=== PATIENT | male | born 1945 | race Caucasian/White ===

== ENCOUNTER → 2018-03-27 10:51 | Outpatient (CLI) | payer OTHER, SELFPAY ==
--- NOTE | 2018-03-27 10:52 | DI.US.S_ITS ---
PROCEDURE: US CAROTID DOPPLER BI INDICATIONS: screening TECHNIQUE: Color and pulse Doppler interrogation was performed of both carotid systems, with image documentation and velocity measurements. COMPARISON: [facility], CAROTID ARTERY DOPPLER BILAT, 04/18/2016, 12:29. [facility], , CAROTID ARTERY DOPPLER BILAT, 06/02/2015, 9:02. [facility], , CAROTID ARTERY DOPPLER BILAT, 06/03/2014, 11:42. [facility], , CAROTID ARTERY DOPPLER BILAT, 05/25/2013, 9:22. [facility], [place], CAROTID ARTERY DOPPLER BILAT, 05/22/2012, 10:37. [facility], , CAROTID ARTERY DOPPLER BILAT, 04/16/2017, 8:48. FINDINGS: Stenosis calculations are based on SRU (Society of Radiologists in Ultrasound) criteria. Right side: Brachial blood pressure: 132/87 mm Hg. Common carotid artery peak systolic velocity: 44 cm/sec (prior 59 cm/s). Internal carotid artery peak systolic velocity: Occluded. Internal carotid artery end diastolic velocity: Occluded. External carotid artery peak systolic velocity: 41 cm/sec (prior 67 cm/s). ICA/CCA peak systolic ratio: Occluded. Rojo scale imaging description: There is an occluded right internal carotid artery. Percent internal carotid artery stenosis: N./A. Vertebral artery: Flow direction is antegrade. Left side: Brachial blood pressure: Not recorded Common carotid artery peak systolic velocity: 69 cm/sec (prior 77 cm/s). Internal carotid artery peak systolic velocity: 100 cm/sec (prior 97 cm/s). Internal carotid artery end diastolic velocity: 32 cm/sec (prior 29 cm/s). External carotid artery peak systolic velocity: 64 cm/sec (prior 84 cm/s). ICA/CCA peak systolic ratio: 1.45 (prior 1.26). Rojo scale imaging description: Mild to moderate atherosclerotic changes are seen. Percent internal carotid artery stenosis: Less than 50% by velocity criteria Vertebral artery: Flow direction is antegrade. 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 Less than 50% stenosis of the left proximal internal carotid artery by velocity criteria. Dictated by: Joao Paz M.D. on 03/27/2018 at 12:15 Approved by: Joao Paz M.D. on 03/27/2018 at 12:17
== END ==
PROVIDERS: Family Provider Family Medicine; PCP Family Medicine; Referring Provider Internal Medicine; Visit Provider Internal Medicine
DX: I65.23 Occlusion and stenosis of bilateral carotid arteries (principal)
CPT/HCPCS: 93880

== ENCOUNTER → 2019-04-06 11:35 | Outpatient (CLI) | payer OTHER, SELFPAY ==
[2019-04-06 13:49] LABS: Alanine Aminotransferase 21 IU/L (21-72); Albumin 4.4 g/dL (3.5-5.0); Albumin Globulin Ratio 1.6 (1.0-2.8); Alkaline Phosphatase 78 U/L (38-126); Aspartate Aminotransferase 36 IU/L (17-59); Bilirubin Total 0.5 mg/dL (0.2-1.3); Blood Urea Nitrogen 11 mg/dL (9-20); Calcium 9.5 mg/dL (8.4-10.2); Carbon Dioxide 28 mmol/L (22-32); Chloride 103 mmol/L (98-107); Cholesterol 135 mg/dL (140-199); Estimated Glomerular Filt Rate > 60.0 mL/min (>60); Globulin 2.7 g/dL (1.7-4.1); Glucose 99 mg/dL (80-110); HDL Cholesterol 54 mg/dL (40-60); HEMOLYSIS < 15 (0-50); LDL Cholesterol Calculated 63 mg/dL (<100); Potassium 3.8 mmol/L (3.4-5.1); Sodium 141 mmol/L (137-145); Total Protein 7.1 g/dL (6.3-8.2); Triglycerides 89 mg/dL (35-150)
[2019-04-06 14:57] LABS: Creatinine Urine Random 188.5 mg/dL
[2019-04-06 15:04] LABS: Microalbumi Creatinin Ratio Ur 16.4 ug/mg CR (<30); Microalbumin Urine Random 3.1 mg/dL (0-1.6)
== END ==
PROVIDERS: PCP Family Medicine; Visit Provider Family Medicine
DX: I10 Essential (primary) hypertension (principal)
CPT/HCPCS: 36415; 80053; 80061; 82043; 82570

== ENCOUNTER → 2019-04-29 08:40 | Outpatient (CLI) | payer OTHER, SELFPAY ==
--- NOTE | 2019-04-29 | DI.US.S_ITS ---
PROCEDURE: US CAROTID DOPPLER BI INDICATIONS: RIGHT OCCLUSION TECHNIQUE: Color and pulse Doppler interrogation was performed of both carotid systems, with image documentation and velocity measurements. COMPARISON: [facility], CAROTID ARTERY DOPPLER BILAT, 06/03/2014, 11:42. [facility], CAROTID ARTERY DOPPLER BILAT, 05/25/2013, 9:22. [facility], , CAROTID ARTERY DOPPLER BILAT, 05/22/2012, 10:37. [facility], , CAROTID ARTERY DOPPLER BILAT, 06/02/2015, 9:02. [facility], , CAROTID ARTERY DOPPLER BILAT, 04/18/2016, 12:29. [facility], , CAROTID ARTERY DOPPLER BILAT, 04/16/2017, 8:48. [facility], [place] CAROTID DOPPLER BI, 03/27/2018, 11:29. FINDINGS: Stenosis calculations are based on SRU (Society of Radiologists in Ultrasound) criteria. Right side: Brachial blood pressure: 126/75 mm Hg. Common carotid artery peak systolic velocity: 56 cm/sec (prior 44 cm/s). Internal carotid artery: Occluded, as before. External carotid artery peak systolic velocity: 50 cm/sec (prior 41 cm/s). ICA/CCA peak systolic ratio: N./A. Rojo scale imaging description: The right internal carotid artery is occluded. Percent internal carotid artery stenosis: 100%. Vertebral artery: Flow direction is antegrade. Left side: Brachial blood pressure: Attempted, too painful Common carotid artery peak systolic velocity: 85 cm/sec (prior 69 cm/s). Internal carotid artery peak systolic velocity: 82 cm/sec (prior 100 cm/s). Internal carotid artery end diastolic velocity: 37 cm/sec (prior 32 cm/s). External carotid artery peak systolic velocity: 64 cm/sec (prior 64 cm/s). ICA/CCA peak systolic ratio: 1 (prior 1.5). Rojo scale imaging description: Mild atherosclerotic changes are seen. Percent internal carotid artery stenosis: Less than 50% by velocity criteria Vertebral artery: Flow direction is antegrade. 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 Less than 50% stenosis is seen involving the left proximal internal carotid artery. Dictated by: Joao Paz M.D. on 04/29/2019 at 9:36 Approved by: Joao Paz M.D. on 04/29/2019 at 9:38
== END ==
PROVIDERS: PCP Family Medicine; Visit Provider Family Medicine
DX: I65.23 Occlusion and stenosis of bilateral carotid arteries (principal)
CPT/HCPCS: 93880

== ENCOUNTER 2019-05-13 10:13 | Emergency (ER) | payer OTHER, SELFPAY ==
[2019-05-13 10:32] VITALS: BP 130/82; PULSE 66; RESP 14; O2SAT 98; BMI 23.6
--- NOTE | 2019-05-13 10:42 | ED.MALEGU ---
HPI - Male Genitourinary General Chief complaint: Urogenital-Male Stated complaint: Blood in urine Time Seen by Provider: 05/13/19 10:28 Source: patient Mode of arrival: Ambulatory Limitations: no limitations History of Present Illness HPI Narrative: 73-year-old male here for evaluation of blood in his urine. He states that it occurred this morning. Last evening he did not have any blood. No problems with urinating although he is urinating more frequently. He did state that he has had some darker colored stools recently but no overt blood. Is on aspirin. No other anticoagulation. Does have a history of prostate issues. Related Data Home Medications Medication Instructions Recorded Confirmed alfuzosin 10 mg PO QDAY #0 tab 04/12/16 04/06/19 atorvastatin 80 mg tablet 80 mg PO DAILY 03/25/18 04/06/19 finasteride 5 mg tablet 5 mg PO DAILY 03/25/18 04/06/19 gabapentin 300 mg capsule 300 mg PO DAILY 03/25/18 04/06/19 lisinopril 20 mg tablet 20 mg PO DAILY 03/25/18 04/06/19 esomeprazole magnesium 20 mg 20 mg PO DAILY 08/12/18 04/06/19 capsule,delayed release hydrochlorothiazide 12.5 mg tablet 12.5 mg PO DAILY 08/12/18 04/06/19 niacin 500 mg tablet 500 mg PO DAILY 08/12/18 04/06/19 oxybutynin chloride 5 mg tablet 5 mg PO .QDAY tab 08/12/18 04/06/19 Previous Rx's Medication Instructions Recorded ASPIRIN (#ASPIRIN EC) 325 mg PO QDAY #90 ect 03/20/13 Trazodone Hydrochloride (TRAZODONE) 50 mg PO HS #90 tab 03/20/13 triamcinolone acetonide 0.025 % 1 applictn TOP BID #15 gram 03/25/18 topical cream sertraline 100 mg tablet 100 mg PO DAILY #90 tab 03/13/19 Allergies Allergy/AdvReac Type Severity Reaction Status Date / Time No Known Drug Allergies Allergy Verified 05/13/19 10:32 Review of Systems Constitutional Constitutional: Denies fever(s) Cardiovascular Cardiovascular: Denies chest pain and Denies dyspnea Respiratory Respiratory: Denies dyspnea Gastrointestinal Gastrointestinal: Denies abdominal pain, Denies change in stool character, Denies nausea and Denies vomiting Genitourinary Genitourinary: Reports hematuria and Reports urinary frequency Musculoskeletal Musculoskeletal: Denies myalgias and Denies arthralgias Integumentary/Breasts Skin/Breast: Denies lesions and Denies rash Neurologic Neurologic: Denies burning sensations Hematologic/Lymphatic Hematologic/Lymphatic: Denies easy bleeding and Denies easy bruising Patient History Medical History CVA (cerebral vascular accident) (Resolved 1992) Depression (Chronic) GERD (gastroesophageal reflux disease) (Chronic) Hyperlipidemia (Chronic) Low back pain (Chronic) RCA occlusion (Resolved) Renal cyst, right (Chronic) Seizures (Resolved) Social History marital status: household members: none lives independently: Yes caregiver/support person: No Smoking Status: Former smoker second hand exposure: No alcohol intake: never substance use type: does not use Substance Use Type: does not use Exam Initial Vital Signs Initial Vital Signs: Vital Signs Pulse Rate 66 05/13/19 10:32 Respiratory Rate 14 05/13/19 10:32 Blood Pressure 130/82 05/13/19 10:32 Pulse Oximetry 98 05/13/19 10:32 Const General: cooperative and comfortable Orientation: alert and awake HENMT Head: normal to inspection and normocephalic Resp Effort & Inspection: normal respiratory effort Auscultation: clear to auscultation bilaterally Cardio Rate: regular rate Rhythm: regular rhythm GI Inspection: non-distended Palpation: soft, No firm and No tender Back/Spine/Pelvis Back: No CVA tenderness Skin Lesions: no lesions Rashes: no rashes Neuro General: alert and awake Cognition: normal cognition Speech: speech normal Extrem General: normal to inspection and capillary refill normal Psych Appearance: grossly normal and well kempt Course Orders Ordered: ED Orders 05/13/19 10:28 Urine Culture Stat Urine Microscopic Stat Vital Signs Vital signs: Vital Signs - 8 hr 05/13/19 10:32 Pulse Rate 66 Respiratory Rate 14 Blood Pressure 130/82 Pulse Oximetry 98 MDM - Male Genitourinary Lab Data Attestation: I reviewed the patient's lab results. Labs: Lab Results 05/13/19 Range/Units 10:28 Urine RBC >100/hpf (0-5/HPF) Urine WBC 5-10/hpf H (0-5/HPF) Urine Bacteria Many (>30) H (None) Ur Culture Indicated? Specimen cultured Urine Dip Bedside Urine Glucose Negative Bedside Urine Bilirubin - Negative Bedside Urine Ketone - Negative Urine Specific [facility] 1.010 Bedside Urine Occult Blood +++ Bedside Urine pH 8.5 Bedside Urine Protein ++ 100 Bedside Urine Urobilinogen +/- 1mg Bedside Urine Nitrite - Negative Bedside Urine Leukocytes ++ 125 Esterase MDM Narrative Medical decision making narrative: Patient is nontoxic appearing. Has no dysuria. Low suspicion for UTI. Urine culture was pending. No prior history of urinary issues. He was able to ambulate to the bathroom without any problems. He does feel like his symptoms have improved since earlier this morning. Will have him contact his primary provider to discuss a referral to see Urology. Will hold on antibiotics. He was informed that a culture was pending and we would call him if needed. He expressed understanding and agreement with plan. Discharge Plan Departure Patient Disposition: Home Clinical Impression: Hematuria Qualifiers: Hematuria type: unspecified type Qualified Code(s): R31.9 - Hematuria, unspecified Instructions: DI for Hematuria Activity Restrictions/Additional Instructions: Recommend that you increase your fluid intake. Return to the emergency department for any fevers or inability to urinate. I do recommend you contact your primary provider to discuss referral to see Urology. Prescriptions: No Action ASPIRIN (#ASPIRIN EC) 325 mg PO QDAY Qty: 90 RF: 3 Trazodone Hydrochloride (TRAZODONE) 50 mg PO HS Qty: 90 RF: 3 alfuzosin 10 MG tablet extended release 24 hr 10 mg PO QDAY Qty: 0 RF: 0 sertraline 100 mg tablet 100 mg PO DAILY Qty: 90 RF: 1 lisinopril 20 mg tablet 20 mg PO DAILY RF: 0 atorvastatin 80 mg tablet 80 mg PO DAILY RF: 0 gabapentin 300 mg capsule 300 mg PO DAILY RF: 0 finasteride 5 mg tablet 5 mg PO DAILY RF: 0 triamcinolone acetonide 0.025 % cream 1 applictn TOP BID Qty: 15 RF: 1 oxybutynin chloride 5 mg tablet 5 mg PO .QDAY RF: 0 esomeprazole magnesium [Nexium] 20 mg capsule,delayed release(DR/EC) 20 mg PO DAILY RF: 0 niacin 500 mg tablet 500 mg PO DAILY RF: 0 hydrochlorothiazide 12.5 mg tablet 12.5 mg PO DAILY RF: 0 Referrals: Maureen Kenyon MD [Primary Care Provider] -
[2019-05-13 11:04] LABS: Bacteria Urine Many (>30); Culture Indicated Urine Specimen Cultured; RBC Urine >100/HPF (0-5/HPF); WBC Urine 5-10/HPF (0-5/HPF)
[2019-05-13 11:51] VITALS: BP 123/85; PULSE 60; RESP 16; O2SAT 99
== END 2019-05-13 11:52 | disposition home or self-care (01) ==
PROVIDERS: Emergency Provider Emergency Medicine; PCP Family Medicine
DX: R31.9 Hematuria, unspecified (principal)
CPT/HCPCS: 81003; 81015; 87086; 99282; 99283

== ENCOUNTER → 2020-01-19 10:24 | Outpatient (CLI) | payer OTHER, SELFPAY ==
--- NOTE | 2020-01-19 | DI.CT.S_ITS ---
PROCEDURE: CT ABDOMEN PELVIS WO/W CON INDICATIONS: Gross hematuria TECHNIQUE: Optional 5 mm thick noncontrast images acquired from the diaphragm to the symphysis pubis. After the administration of intravenous contrast, 5 mm thick images acquired from the diaphragm to the symphysis pubis after a 10-minute delay. 2 mm thick coronal and sagittal reformats were then performed of the kidneys and ureters. For radiation dose reduction, the following was used: automated exposure control, adjustment of mA and/or kV according to patient size. COMPARISON: None. FINDINGS: Image quality: Excellent. Lung bases: There is mild dependent atelectasis bilaterally. Heart size is normal. There is a small hiatal hernia. Urinary system: There are 2 punctate nonobstructing stones within the left kidney. No hydronephrosis. Mild nonspecific perinephric stranding is demonstrated bilaterally. The opacified renal collecting systems demonstrate no suspicious filling defects. The kidneys demonstrate symmetric enhancement with multiple bilateral renal cysts as well as additional small low-density foci which are too small to characterize but likely represent cysts. Opacified portions of both ureters demonstrate normal caliber without ureteral stones. There is mild concentric bladder wall thickening with mild fat stranding. A small focus of gas is demonstrated within the bladder lumen. No calcified bladder stones. Other solid organs: Evaluation of the liver demonstrates no focal hepatic lesions. The gallbladder demonstrates a Phrygian cap with associated mild regional wall thickening. No calcified gallstones. Biliary system is non-dilated. Pancreas enhances normally. No peripancreatic fat stranding or fluid collections. No pancreatic duct dilatation. The spleen is normal in size. No adrenal nodules. Peritoneum and bowel: Small bowel loops demonstrate normal wall thickness and caliber. Colonic diverticulosis is demonstrated without peridiverticular inflammatory change to suggest acute diverticulitis. Mild segmental wall thickening is demonstrated within the descending and sigmoid colon suggestive of a mild colitis. No free fluid or air. Nodes and vessels: No retroperitoneal or mesenteric adenopathy by size criteria. Aorta and inferior vena cava are normal in size. Abdominal wall: No ventral hernias. Pelvis: There is heterogeneous enlargement of the prostate. No pathologic free pelvic fluid. No inguinal hernias or adenopathy. Bones: No suspicious bony lesions. No vertebral body compression fractures. IMPRESSION: 1. Left nephrolithiasis without evidence of hydronephrosis or suspicious filling defects in the renal collecting systems. 2. Mild bladder wall thickening with fat stranding suggestive of a nonspecific cystitis. Small focus of intraluminal gas within the bladder may be reflect sequelae of catheterization or infection from a gas-forming organism. Recommend correlation with clinical history and urinalysis. 3. Mild segmental wall thickening in the descending and sigmoid colon suggestive of a mild colitis, likely infectious or inflammatory. 4. Colonic diverticulosis without definite acute diverticulitis. Dictated by: Romario Galaviz M.D. on 01/19/2020 at 15:26 Approved by: Romario Galaviz M.D. on 01/19/2020 at 16:20
== END ==
PROVIDERS: PCP Family Medicine; Referring Provider Family Medicine; Visit Provider Urology
DX: R31.0 Gross hematuria (principal); N20.0 Calculus of kidney; K57.90 Diverticulosis of intestine, part unspecified, without perforation or abscess without bleeding; K44.9 Diaphragmatic hernia without obstruction or gangrene
CPT/HCPCS: 74178; Q9967

== ENCOUNTER → 2020-03-29 09:14 | Outpatient (CLI) | payer OTHER, SELFPAY ==
--- NOTE | 2020-03-29 | DI.US.S_ITS ---
PROCEDURE: US CAROTID DOPPLER BI INDICATIONS: Occlusion and stenosis of unspecified posterior cerebral art TECHNIQUE: Color and pulse Doppler interrogation was performed of both carotid systems, with image documentation and velocity measurements. COMPARISON: [facility], CAROTID DOPPLER BI, 03/27/2018, 11:29. [facility], [place] CAROTID DOPPLER BI, 04/29/2019, 10:10. FINDINGS: Stenosis calculations are based on SRU (Society of Radiologists in Ultrasound) criteria. Right side: Brachial blood pressure: 120/82 mm Hg. Common carotid artery peak systolic velocity: 66 cm/sec. Internal carotid artery peak systolic velocity: 0 cm/sec. (Chronic occlusion) Internal carotid artery end diastolic velocity: 0 cm/sec. (Chronic occlusion) External carotid artery peak systolic velocity: 80 cm/sec. ICA/CCA peak systolic ratio: Not measured . Rojo scale imaging description: Redemonstration of chronic occlusion of the right internal carotid artery. A patent collateral vessel is incidentally noted. Normal flow direction of the right vertebral, and right subclavian arteries. Percent internal carotid artery stenosis: Less than 50% . Vertebral artery: Flow direction is antegrade. Left side: Brachial blood pressure: Blood pressure of the left upper extremity not obtained secondary to patient pain. Common carotid artery peak systolic velocity: 85 cm/sec. Internal carotid artery peak systolic velocity: 78 cm/sec. Internal carotid artery end diastolic velocity: 38 cm/sec. External carotid artery peak systolic velocity: 50 cm/sec. ICA/CCA peak systolic ratio: 0.9 . Rojo scale imaging description: Redemonstration of mild atherosclerotic vascular disease at the carotid bifurcation. Percent internal carotid artery stenosis: Less than 50% stenosis . Vertebral artery: Flow direction is antegrade. IMPRESSION: 1. Chronic occlusion of the right internal carotid artery with visualized collateral vessel. Normal flow direction of the right vertebral and subclavian arteries. 2. Atherosclerosis of the left extracranial carotid vasculature with less than 50% stenosis of the left internal carotid artery. Dictated by: Rodney Carrera M.D. on 03/29/2020 at 12:07 Approved by: Rodney Carrera M.D. on 03/29/2020 at 12:15
[2020-03-29 12:27] LABS: Add Manual Diff / Slide Review NO; Basophils Absolute Auto 0 /uL (0-100); Basophils Percent Auto 0.9 % (0-2); Eosinophils Absolute Auto 100 /uL (0-450); Eosinophils Percent Auto 2.8 % (2-4); Hematocrit 40.3 % (41-53); Hemoglobin 13.1 g/dL (13.5-17.5); Lymphocytes Absolute Auto 1200 /uL (1100-4500); Lymphocytes Percent Auto 23.5 % (25-40); Mean Corpuscular HGB Conc 32.5 % (30-36); Mean Corpuscular Hemoglobin 27.6 PG (26-34); Monocytes Absolute Auto 400 /uL (0-900); Monocytes Percent Auto 8.4 % (3-14); Neutrophils Absolute Auto 3300 /uL (1500-7000); Neutrophils Percent Auto 64.4 % (50-75); Platelet Count 180 X10^3/uL (150-400); Red Blood Cell Count 4.74 X10^6/uL (4.5-5.9); Red Cell Distribution Width 16.5 % (11.6-14.8); White Blood Cell Count 5.1 X10^3/uL (4.5-11.0)
[2020-03-29 12:54] LABS: Alanine Aminotransferase 26 IU/L (<50); Albumin 3.9 g/dL (3.5-5.0); Albumin Globulin Ratio 1.6 (1.0-2.8); Alkaline Phosphatase 76 U/L (38-126); Aspartate Aminotransferase 37 IU/L (17-59); BUN Creatinine Ratio 15.3 (6-22); Bilirubin Total 0.4 mg/dL (0.2-1.3); Blood Urea Nitrogen 15 mg/dL (9-20); Calcium 9.5 mg/dL (8.4-10.2); Carbon Dioxide 32 mmol/L (22-32); Chloride 103 mmol/L (98-107); Cholesterol 125 mg/dL (140-199); Estimated Glomerular Filt Rate > 60.0 mL/min (>60); Globulin 2.5 g/dL (1.7-4.1); Glucose 92 mg/dL (80-110); HDL Cholesterol 55 mg/dL (40-60); HEMOLYSIS < 15 (0-50); LDL Cholesterol Calculated 57 mg/dL (<100); Potassium 4.1 mmol/L (3.4-5.1); Sodium 140 mmol/L (137-145); Total Protein 6.4 g/dL (6.3-8.2); Triglycerides 64 mg/dL (35-150)
[2020-03-29 12:59] LABS: Appearance Urine UA CLEAR; Bilirubin Urine UA NEGATIVE (NEGATIVE); Color Urine UA YELLOW; Glucose Urine UA NEGATIVE (Negative); Ketones Urine UA NEGATIVE (NEGATIVE); Leukocyte Esterase Urine UA NEGATIVE (NEGATIVE); Nitrite Urine UA NEGATIVE (Negative); Occult Blood Urine UA 3+ (Negative); Protein Urine UA NEGATIVE (Negative); Specific Gravity Urine UA 1.025 (1.000-1.035); Urobilinogen Urine UA 0.2 E.U./dL (0.2); pH Urine UA 5.5 (4.5-8.0)
[2020-03-29 13:20] LABS: RBC Urine 5-10/HPF (0-5/HPF)
[2020-03-29 13:21] LABS: Amorphous Sediment Urine 1+; Bacteria Urine Occasional (0-1); Culture Indicated Urine Cult Not Indicated; Mucus Urine 2+ (Negative); Squamous Epithelial Cell Urine 0-1 /HPF (0-5/HPF); WBC Urine 1-5/HPF (0-5/HPF)
[2020-03-29 13:23] LABS: Prostate Specific Antigen 0.581 ng/mL (0.10-4.00)
[2020-03-29 13:27] LABS: TSH w/ Reflex to FT4 1.16 uIU/mL (0.47-4.68)
== END ==
PROVIDERS: PCP Internal Medicine; Referring Provider Internal Medicine; Visit Provider Internal Medicine
DX: I65.23 Occlusion and stenosis of bilateral carotid arteries (principal); I10 Essential (primary) hypertension; Z87.448 Personal history of other diseases of urinary system; Z86.73 Personal history of transient ischemic attack (TIA), and cerebral infarction without residual deficits
CPT/HCPCS: 36415; 80053; 80061; 81001; 84153; 84443; 85025; 93880

== ENCOUNTER → 2020-04-22 19:00 | Outpatient (ROUT) | payer OTHER, SELFPAY | PROVIDERS: PCP Internal Medicine; Visit Provider Internal Medicine | DX: L03.811 Cellulitis of head [any part, except face] (principal) | CPT/HCPCS: 87070; 87075; 87077; 87147; 87205 ==

== ENCOUNTER 2020-06-08 10:04 | Observation (INO) | payer OTHER, SELFPAY ==
[2020-06-08] VITALS (25 sets, daily range): BP systolic 115–151; BP diastolic 67–103; PULSE 74–93; RESP 16–30; TEMP 36.3–37.3; O2SAT 95–98; BMI 23.6; BMI 23.4
--- NOTE | 2020-06-08 10:29 | DI.RAD.S_ITS ---
PROCEDURE: XR CHEST 1V INDICATIONS: weakness TECHNIQUE: One view of the chest was acquired. COMPARISON: None. FINDINGS: Surgical changes and devices: None. Lungs and pleura: Lungs are clear considering reduced inspiratory volume. No pleural effusions or pneumothorax. Mediastinum: Mediastinal contours appear normal. Heart size is normal. Bones and chest wall: No suspicious bony lesions. Overlying soft tissues appear unremarkable. IMPRESSION: Reduced inspiratory volume, source of weakness is not found. Dictated by: Anthony Lux M.D. on 06/08/2020 at 10:40 Approved by: Anthony Lux M.D. on 06/08/2020 at 10:41
[2020-06-08] MEDS: SODIUM CHLORIDE 0.9% 1,000 ML 150 ML IV ×2 (11:05→18:58)
[2020-06-08 11:08] LABS: INR 1.2 (0.9-1.3); Prothrombin Time 14.2 SECONDS (10.1-12.7)
[2020-06-08 11:11] LABS: PTT Partial Thromboplastin Tim 30 SECONDS (26.4-36.2)
--- NOTE | 2020-06-08 11:11 | ED_ITS ---
HPI - Weakness General Chief complaint: Weakness Stated complaint: decreased mobility, increased weakness Time Seen by Provider: 06/08/20 10:28 Source: patient and EMS Mode of arrival: EMS Limitations: no limitations History of Present Illness HPI Narrative: This is a 74-year-old male who comes to the emergency department with acute back pain. Patient states for the last several days he has had significant increase in pain in his thoracic and lumbar back. Patient states he has typically had lower back pain in the lumbar region is little atypical for the middle back. Patient states it also radiates down to his hips and groin a little bit. He states he has been trying ibuprofen with minimal improvement. Marin curran has had difficulty getting in and out of bed. He states he slipped to the floor after trying to get out of bed last night and was unable to get up back to his bed and had to call EMS, they returned this morning to help him sit up and then patient called him a 3rd time and they convinced him to come to the ER. He denies any fevers, no chills, no chest pain or shortness of breath. Denies any recent trauma or significant injuries. He thinks he may have pulled a muscle in his back. Denies any nausea, no vomiting, no cold cough or congestion, no urinary or bowel incontinence. He has chronic weakness and debility on his left side from a left CVA. States his left leg seems maybe a little bit weaker. Denies any new numbness, tingling. He takes antihypertensive, dyslipidemia an aspirin 325 mg daily. He denies any prior heart attacks, no diabetes. States his only prior surgeries appendectomy with no prior back surgeries. Primary care is [facility]. He denies any allergies to medications he has had Tylenol 3 in the past with no issues. Related Data Home Medications Medication Instructions Recorded Confirmed atorvastatin 80 mg tablet 80 mg PO DAILY 03/25/18 05/13/19 finasteride 5 mg tablet 5 mg PO DAILY 03/25/18 05/13/19 aspirin 325 mg PO DAILY 05/13/19 05/13/19 esomeprazole magnesium 40 mg PO DAILY 05/13/19 05/13/19 lisinopril 40 mg PO DAILY 05/13/19 05/13/19 niacin [Slo-Niacin] 500 mg PO BEDTIME 05/13/19 05/13/19 sertraline 50 mg PO DAILY 05/13/19 05/13/19 trazodone 50 mg PO BEDTIME 05/13/19 05/13/19 Previous Rx's Medication Instructions Recorded triamcinolone acetonide 0.025 % 1 applictn TOP BID #15 gram 03/25/18 topical cream Disabled Parking Permit #1 ea 05/26/19 Allergies Allergy/AdvReac Type Severity Reaction Status Date / Time No Known Drug Allergies Allergy Verified 06/08/20 10:11 Review of Systems Review of Systems ROS Unobtainable: All systems reviewed & are unremarkable except as noted in HPI and below Patient History Medical History (Updated 06/08/20 @ 12:01 by Traci Wells DO) CVA (cerebral vascular accident) (1992) Depression GERD (gastroesophageal reflux disease) Hyperlipidemia Low back pain RCA occlusion Renal cyst, right Seizures Surgical History History of vasectomy Status post appendectomy Social History marital status: household members: none lives independently: Yes caregiver/support person: No Smoking Status: Former smoker second hand exposure: No alcohol intake: never substance use type: does not use Smoking Status: Former smoker alcohol intake frequency: holidays/special occasions only Substance Use Type: does not use Exam Narrative Exam Narrative: GEN: well nourished, well appearing male, alert and oriented x 3, patient appears to be in mild distress. HEENT: Atraumatic, pupils are equal round reactive to light, extraocular movements are intact, nares are clear, TMs are clear with no fluid, there is no conjunctival pallor. Throat is clear without any exudates, erythema, tonsillar enlargement or uvular deviation, no dysarthria. HEART: Regular rate and rhythm without murmur, clicks, rubs. No carotid bruits, pulses are equal in upper and lower extremities LUNGS:Lungs clear to auscultation, no wheezes, rales, crackles, chest moves symmetrically ABD:bowel sounds normal, soft, non-tender, no guarding, rebound, rigidity, no masses noted, no hepatosplenomegaly BACK: No cervical, thoracic or lumbar vertebral point tenderness. Patient has tissue tightness and some discomfort in the bilateral lower lumbar and mid lumbar region with palpation. No ecchymosis or skin changes. Patient has decreased range of motion. Patient's gait is not tested. Rectal exam is [normal sphincter tone/decreased tone/no tone/deferred or refused]. Muscle strength is 5/5 on right lower extremity, 4/5 on left lower extremity, DTRs are 2/4 and lower extremities. Dorsalis pedis and tibialis pulses are 2+ and lower extremities. Sensation is intact in bialteral lower extremities. :No CVA tenderness MSCL: Non-tender. Patient has decreased use of his left upper extremity secondary to left-sided deficit. NEURO:CN 2-12 intact, sensation normal Initial Vital Signs Initial Vital Signs: Vital Signs Temperature 98.9 F 06/08/20 10:08 Pulse Rate 93 H 06/08/20 10:08 Respiratory Rate 28 H 06/08/20 10:08 Blood Pressure 130/91 H 06/08/20 10:08 Pulse Oximetry 97 06/08/20 10:08 Course Orders Ordered: ED Orders 06/08/20 10:17 EKG-12 Lead Stat 06/08/20 10:29 XR chest 1V Stat 06/08/20 10:45 COVID19 Stat Complete Blood Count AUTO DIFF Stat Comprehensive Metabolic Panel Stat Lactate (Lactic Acid) Stat Partial Thromboplastin Time Stat Procalcitonin Stat Prothrombin Time INR Stat Troponin & CK Cardiac Panel Stat 06/08/20 11:06 Blood Culture Stat 06/08/20 11:52 CT thoracic spine wo con Stat 06/08/20 12:00 Urine Microscopic Stat 06/08/20 12:01 CT lumbar spine wo con Stat 06/08/20 14:31 Consult to [employer] - [employer] Stat 06/08/20 15:37 Consult to Physical Therapy Evaluate & Treat Sodium Chloride (Normal Saline 0.9%) 1,000 mls @ 150 mls/hr IV CONT KATHRYN Last Infusion: 06/08/20 11:53 Dose: 0 mls/hr Documented by: Admin: 06/08/20 11:05 Dose: 150 mls/hr Documented by: DEE Discontinued Medications Diazepam (Diazepam 5 Mg Tablet) 10 mg PO NOW ONE Stop: 06/08/20 11:55 Last Admin: 06/08/20 13:23 Dose: 10 mg Documented by: VIOLET Morphine Sulfate (Morphine 4 Mg/Ml Inj) 4 mg IV NOW ONE Stop: 06/08/20 11:55 Last Admin: 06/08/20 11:59 Dose: 4 mg Documented by: VIOLET Morphine Sulfate (Morphine 4 Mg/Ml Inj) 4 mg IV NOW ONE Stop: 06/08/20 17:05 Last Admin: 06/08/20 17:33 Dose: 4 mg Documented by: Reevaluation(s) Reevaluation #1: Patient's pain has improved. Time: 13:43 Vital Signs Vital signs: Vital Signs - 8 hr 06/08/20 10:08 06/08/20 10:09 06/08/20 10:30 Temperature 98.9 F Pulse Rate 93 H 92 H 85 Respiratory Rate 28 H 28 H 26 H Blood Pressure 130/91 H 132/91 H 125/75 Pulse Oximetry 97 96 06/08/20 11:01 06/08/20 11:30 06/08/20 11:31 Temperature Pulse Rate 83 80 81 Respiratory Rate 29 H 29 H Blood Pressure 131/87 151/84 H Pulse Oximetry 97 98 98 06/08/20 12:12 06/08/20 12:14 06/08/20 12:30 Temperature Pulse Rate 85 81 79 Respiratory Rate Blood Pressure 129/81 124/67 Pulse Oximetry 96 98 97 06/08/20 13:00 06/08/20 13:30 06/08/20 14:00 Temperature Pulse Rate 78 79 77 Respiratory Rate 23 Blood Pressure 128/79 115/87 127/75 Pulse Oximetry 96 97 96 06/08/20 14:30 06/08/20 15:00 06/08/20 15:30 Temperature Pulse Rate 77 77 74 Respiratory Rate 18 21 16 Blood Pressure 129/75 139/74 137/79 Pulse Oximetry 96 95 96 06/08/20 16:00 06/08/20 16:01 06/08/20 16:30 Temperature Pulse Rate 78 82 74 Respiratory Rate 27 H 30 H 26 H Blood Pressure 145/103 H 131/79 Pulse Oximetry 97 98 06/08/20 17:00 Temperature Pulse Rate 76 Respiratory Rate 27 H Blood Pressure Pulse Oximetry 96 MDM - Weakness Lab Data Attestation: I reviewed the patient's lab results. Result diagrams: 06/08/20 10:45 06/08/20 10:45 Labs: Lab Results 06/08/20 06/08/20 06/08/20 Range/Units 10:45 10:45 10:45 WBC 12.1 H (4.5-11.0) X10^3/uL RBC 4.82 (4.5-5.9) X10^6/uL Hgb 13.0 L (13.5-17.5) g/dL Hct 40.3 L (41-53) % MCV 83.7 (80-100) fL MCH 27.1 (26-34) PG MCHC 32.3 (30-36) % RDW 15.6 H (11.6-14.8) % Plt Count 267 (150-400) X10^3/uL Neut % (Auto) 89.3 H (50-75) % Lymph % (Auto) 3.6 L (25-40) % [place] % (Auto) 6.9 (3-14) % Eos % (Auto) 0.0 L (2-4) % Baso % (Auto) 0.2 (0-2) % Neut # (Auto) 72333 H (2893-8356) /uL Lymph # (Auto) 400 L (1458-4218) /uL [place] # (Auto) 800 (0-900) /uL Eos # (Auto) 0 (0-450) /uL Baso # (Auto) 0 (0-100) /uL PT 14.2 H (10.1-12.7) SECONDS INR 1.2 (0.9-1.3) APTT 30 (26.4-36.2) SECONDS Sodium (137-145) mmol/L Potassium (3.4-5.1) mmol/L Chloride (98-107) mmol/L Carbon Dioxide (22-32) mmol/L BUN (9-20) mg/dL Creatinine (0.66-1.25) mg/dL Estimated GFR (>60) mL/min BUN/Creatinine Ratio (6-22) Glucose (80-110) mg/dL Lactate (0.7-2.1) mmol/L Calcium (8.4-10.2) mg/dL Total Bilirubin (0.2-1.3) mg/dL AST (17-59) IU/L ALT (<50) IU/L Alkaline Phosphatase (38-126) U/L Total Creatine Kinase (55-170) U/L CK-MB (CK-2) (<2.37) ng/mL CK-MB (CK-2) Rel Index (1.5-5.0) % Troponin I (0.01-0.034) ng/mL Total Protein (6.3-8.2) g/dL Albumin (3.5-5.0) g/dL Globulin (1.7-4.1) g/dL Albumin/Globulin Ratio (1.0-2.8) Procalcitonin < 0.05 (<0.5) ng/mL Urine RBC (0-5/HPF) Urine WBC (0-5/HPF) Urine Bacteria (None) Urine Mucus (Negative) Ur Culture Indicated? COVID-19 PCR (Negative) 06/08/20 06/08/20 06/08/20 Range/Units 10:45 10:45 10:45 WBC (4.5-11.0) X10^3/uL RBC (4.5-5.9) X10^6/uL Hgb (13.5-17.5) g/dL Hct (41-53) % MCV (80-100) fL MCH (26-34) PG MCHC (30-36) % RDW (11.6-14.8) % Plt Count (150-400) X10^3/uL Neut % (Auto) (50-75) % Lymph % (Auto) (25-40) % [place]kin % (Auto) (3-14) % Eos % (Auto) (2-4) % Baso % (Auto) (0-2) % Neut # (Auto) (6637-9536) /uL Lymph # (Auto) (6193-5462) /uL Pitkin # (Auto) (0-900) /uL Eos # (Auto) (0-450) /uL Baso # (Auto) (0-100) /uL PT (10.1-12.7) SECONDS INR (0.9-1.3) APTT (26.4-36.2) SECONDS Sodium 139 (137-145) mmol/L Potassium 3.7 (3.4-5.1) mmol/L Chloride 101 (98-107) mmol/L Carbon Dioxide 30 (22-32) mmol/L BUN 16 (9-20) mg/dL Creatinine 0.93 (0.66-1.25) mg/dL Estimated GFR > 60.0 (>60) mL/min BUN/Creatinine Ratio 17.2 (6-22) Glucose 133 H (80-110) mg/dL Lactate 0.9 (0.7-2.1) mmol/L Calcium 9.8 (8.4-10.2) mg/dL Total Bilirubin 0.7 (0.2-1.3) mg/dL AST 39 (17-59) IU/L ALT 25 (<50) IU/L Alkaline Phosphatase 95 (38-126) U/L Total Creatine Kinase 237 H (55-170) U/L CK-MB (CK-2) 1.33 (<2.37) ng/mL CK-MB (CK-2) Rel Index 0.6 L (1.5-5.0) % Troponin I < 0.012 (0.01-0.034) ng/mL Total Protein 7.8 (6.3-8.2) g/dL Albumin 4.4 (3.5-5.0) g/dL Globulin 3.4 (1.7-4.1) g/dL Albumin/Globulin Ratio 1.3 (1.0-2.8) Procalcitonin (<0.5) ng/mL Urine RBC (0-5/HPF) Urine WBC (0-5/HPF) Urine Bacteria (None) Urine Mucus (Negative) Ur Culture Indicated? COVID-19 PCR (Negative) 06/08/20 06/08/20 Range/Units 10:45 12:00 WBC (4.5-11.0) X10^3/uL RBC (4.5-5.9) X10^6/uL Hgb (13.5-17.5) g/dL Hct (41-53) % MCV (80-100) fL MCH (26-34) PG MCHC (30-36) % RDW (11.6-14.8) % Plt Count (150-400) X10^3/uL Neut % (Auto) (50-75) % Lymph % (Auto) (25-40) % [place]kin % (Auto) (3-14) % Eos % (Auto) (2-4) % Baso % (Auto) (0-2) % Neut # (Auto) (6333-6795) /uL Lymph # (Auto) (1179-6866) /uL [place]kin # (Auto) (0-900) /uL Eos # (Auto) (0-450) /uL Baso # (Auto) (0-100) /uL PT (10.1-12.7) SECONDS INR (0.9-1.3) APTT (26.4-36.2) SECONDS Sodium (137-145) mmol/L Potassium (3.4-5.1) mmol/L Chloride (98-107) mmol/L Carbon Dioxide (22-32) mmol/L BUN (9-20) mg/dL Creatinine (0.66-1.25) mg/dL Estimated GFR (>60) mL/min BUN/Creatinine Ratio (6-22) Glucose (80-110) mg/dL Lactate (0.7-2.1) mmol/L Calcium (8.4-10.2) mg/dL Total Bilirubin (0.2-1.3) mg/dL AST (17-59) IU/L ALT (<50) IU/L Alkaline Phosphatase (38-126) U/L Total Creatine Kinase (55-170) U/L CK-MB (CK-2) (<2.37) ng/mL CK-MB (CK-2) Rel Index (1.5-5.0) % Troponin I (0.01-0.034) ng/mL Total Protein (6.3-8.2) g/dL Albumin (3.5-5.0) g/dL Globulin (1.7-4.1) g/dL Albumin/Globulin Ratio (1.0-2.8) Procalcitonin (<0.5) ng/mL Urine RBC 5-10/hpf H (0-5/HPF) Urine WBC None seen (0-5/HPF) Urine Bacteria None seen (None) Urine Mucus 2+ H (Negative) Ur Culture Indicated? Cult not indicated COVID-19 PCR Negative (Negative) Urine Dip Bedside Urine Glucose Negative Bedside Urine Bilirubin - Negative Bedside Urine Ketone +/- 5 Urine Specific [place] 1.020 Bedside Urine Occult Blood +++ Bedside Urine pH 6 Bedside Urine Protein + 30 Bedside Urine Urobilinogen - Negative Bedside Urine Nitrite - Negative Bedside Urine Leukocytes - Negative Esterase Imaging Data Chest x-ray: Radiologist Impression: [address] [id number] ReportSigned Patient: Dionicio Watts CMR#: [id number]: 7Acct:[id number]/Sex: 74 / MDate of Service: 06/08/20Loc: EDAccession Number: [id number] Procedure: XR chest 1V Ordering Provider: Traci Wells D.O. PROCEDURE: XR CHEST 1V INDICATIONS: weakness TECHNIQUE: One view of the chest was acquired. COMPARISON: None. FINDINGS: Surgical changes and devices: None. Lungs and pleura: Lungs are clear considering reduced inspiratory volume. No pleural effusions or pneumothorax. Mediastinum: Mediastinal contours appear normal. Heart size is normal. Bones and chest wall: No suspicious bony lesions. Overlying soft tissues appear unremarkable. IMPRESSION: Reduced inspiratory volume, source of weakness is not found. Dictated by: Anthony Lux M.D. on 06/08/2020 at 10:40 Approved by: Anthony Lux M.D. on 06/08/2020 at 10:41 CT thoracic: Radiologist Impression: [address] [id number] Scan ReportSigned Patient: Dionicio Watts CMR#: [id number]: [id number]:[id number]/Sex: 74 / MDate of Service: 06/08/20Loc: EDAccession Number: [id number] Procedure: CT thoracic spine wo con Ordering Provider: Traci Wells D.O. PROCEDURE: CT THORACIC SPINE WO CON INDICATIONS: thoracic/lumbar back pain TECHNIQUE: Noncontrast 3 mm thick sections acquired through the region of interest in the thoracic spine. Sagittal and coronal reformats were then constructed. For radiation dose reduction, the following was used: automated exposure control. COMPARISON: None. FINDINGS: Image quality: Excellent. Bones: There is normal overall bony alignment. No acute vertebral body compression fractures. Mild degenerative endplate changes are noted in mid to lower thoracic spine. No significant central canal stenosis or neural foraminal narrowing is seen. No suspicious sclerotic or lytic bony lesions. Central spinal canal is of normal overall caliber. Soft tissues: No paravertebral masses or hematomas. Visualized posteromedial lungs appear clear. Heart size is enlarged. No pericardial effusion. No gross mediastinal or hilar lymphadenopathy. Mild atherosclerotic disease is seen. Small hiatal hernia is noted. There are suggestion of bilateral renal cysts. No hydronephrosis. IMPRESSION: 1. No acute thoracic spine fracture or dislocation. 2. Mild degenerative disc disease in mid to lower thoracic spine. 3. Bilateral renal cysts. No hydronephrosis. Cardiomegaly. Dictated by: Uvaldo Cobb M.D. on 06/08/2020 at 12:46 Approved by: Uvaldo Cobb M.D. on 06/08/2020 at 12:57 CT lumbar: Radiologist Impression: [address] [id number] Scan ReportSigned Patient: Dionicio Watts CMR#: [id number]: 7Acct:[id number]/Sex: 74 / MDate of Service: 06/08/20Loc: EDAccession Number: [id number] Procedure: CT lumbar spine wo con Ordering Provider: Traci Wells D.O. PROCEDURE: CT LUMBAR SPINE WO CON INDICATIONS: back pain for several days TECHNIQUE: Noncontrast 3 mm thick sections acquired from the T12 level to the sacrum. Sagittal and coronal reformats were constructed. For radiation dose reduction, the following was used: automated exposure control. COMPARISON: None. FINDINGS: Image quality: Excellent. Bones: There is normal bony alignment. No acute vertebral body compression fractures. No suspicious lytic or blastic bony lesions. Central spinal caliber is of normal overall caliber. No pars defects. T12-L1: Unremarkable. L1-L2: Unremarkable. L2-L3: Unremarkable. L3-L4: Unremarkable. L4-L5: There is mild broad-based disc bulge and bilateral facet arthrosis. No significant canal stenosis or neural foraminal narrowing is seen. L5-S1: Decreased intervertebral disc space and degenerative endplate changes are noted. Vacuum disc phenomena is also seen. Broad-based disc bulge and bilateral facet arthrosis is noted with mild central canal stenosis and left-sided neural foraminal narrowing. Soft tissues: No retroperitoneal masses or hematomas. There are suggestion of bilateral renal cysts. No hydronephrosis. Visualized aorta is normal in caliber. IMPRESSION: 1. No lumbar spine fracture or dislocation. No pars defects. 2. Degenerative disc bulge and bilateral facet arthrosis at L4-5 and L5-S1 levels causing mild central canal stenosis and left-sided neural foraminal narrowing at L5-S1 level. 3. Bilateral renal cysts incompletely evaluated on this CT of lumbar spine study. No hydronephrosis. Dictated by: Uvaldo Cobb M.D. on 06/08/2020 at 12:39 Approved by: Uvaldo Cobb M.D. on 06/08/2020 at 12:46 ECG Data Attestation: I personally reviewed and interpreted this ECG as follows: Interpretation: NSR, rate of 87, P are 198, QRS 96 and QTC of 457. No ST elevation depression noted. MDM Narrative Medical decision making narrative: Patient in the department with weakness he had 3 EMS calls overnight and able to even get out of bed. Patient was evaluated by PT could not extract himself from the bed had to be assisted. They were able to ambulate him but he was very shaky and they felt quite uncomfortable discharging him. Patient's changes at L4-L5 and L5-S1 level with some mild central canal stenosis and left-sided neural foraminal narrowing. Patient's neuro exam does not support emergency intervention. Mild leukocy tosis, baseline anemia that has not changed. Patient's labs otherwise are negative with a normal troponin, negative procalcitonin. Urine shows hematuria but no infection and COVID swab is negative. Neuro exam does not support a stroke or similar changes. His back pain was improved with pain medication and Valium but he was still quite unstable. Patient pain improved. Discharge Plan Departure Patient Disposition: Admitted as Observation Clinical Impression: Back pain Admit Date/Time: 06/08/20 17:19 Admit Provider: Gunner Levi
[2020-06-08 11:15] LABS: Add Manual Diff / Slide Review NO; Basophils Absolute Auto 0 /uL (0-100); Basophils Percent Auto 0.2 % (0-2); Eosinophils Absolute Auto 0 /uL (0-450); Hematocrit 40.3 % (41-53); Lactate (Lactic Acid) 0.9 mmol/L (0.7-2.1); Lymphocytes Absolute Auto 400 /uL (1100-4500); Lymphocytes Percent Auto 3.6 % (25-40); Mean Corpuscular HGB Conc 32.3 % (30-36); Mean Corpuscular Hemoglobin 27.1 PG (26-34); Mean Corpuscular Volume 83.7 fL (80-100); Monocytes Absolute Auto 800 /uL (0-900); Monocytes Percent Auto 6.9 % (3-14); Neutrophils Absolute Auto 10800 /uL (1500-7000); Neutrophils Percent Auto 89.3 % (50-75); Platelet Count 267 X10^3/uL (150-400); Red Blood Cell Count 4.82 X10^6/uL (4.5-5.9); Red Cell Distribution Width 15.6 % (11.6-14.8); White Blood Cell Count 12.1 X10^3/uL (4.5-11.0)
[2020-06-08 11:16] LABS: Alanine Aminotransferase 25 IU/L (<50); Albumin 4.4 g/dL (3.5-5.0); Albumin Globulin Ratio 1.3 (1.0-2.8); Alkaline Phosphatase 95 U/L (38-126); Aspartate Aminotransferase 39 IU/L (17-59); BUN Creatinine Ratio 17.2 (6-22); Bilirubin Total 0.7 mg/dL (0.2-1.3); Blood Urea Nitrogen 16 mg/dL (9-20); Calcium 9.8 mg/dL (8.4-10.2); Carbon Dioxide 30 mmol/L (22-32); Chloride 101 mmol/L (98-107); Creatine Kinase 237 U/L (55-170); Estimated Glomerular Filt Rate > 60.0 mL/min (>60); Globulin 3.4 g/dL (1.7-4.1); Glucose 133 mg/dL (80-110); HEMOLYSIS < 15 (0-50); Potassium 3.7 mmol/L (3.4-5.1); Sodium 139 mmol/L (137-145); Total Protein 7.8 g/dL (6.3-8.2)
[2020-06-08 11:18] LABS: COVID19 -Nasal RAPID Negative (Negative)
[2020-06-08 11:27] LABS: Troponin I < 0.012 ng/mL (0.01-0.034)
[2020-06-08 11:34] LABS: CKMB % Relative Index 0.6 % (1.5-5.0); Creatine Kinase MB 1.33 ng/mL (<2.37)
[2020-06-08 11:42] LABS: Procalcitonin < 0.05 ng/mL (<0.5)
--- NOTE | 2020-06-08 11:52 | DI.CT.S_ITS ---
PROCEDURE: CT THORACIC SPINE WO CON INDICATIONS: thoracic/lumbar back pain TECHNIQUE: Noncontrast 3 mm thick sections acquired through the region of interest in the thoracic spine. Sagittal and coronal reformats were then constructed. For radiation dose reduction, the following was used: automated exposure control. COMPARISON: None. FINDINGS: Image quality: Excellent. Bones: There is normal overall bony alignment. No acute vertebral body compression fractures. Mild degenerative endplate changes are noted in mid to lower thoracic spine. No significant central canal stenosis or neural foraminal narrowing is seen. No suspicious sclerotic or lytic bony lesions. Central spinal canal is of normal overall caliber. Soft tissues: No paravertebral masses or hematomas. Visualized posteromedial lungs appear clear. Heart size is enlarged. No pericardial effusion. No gross mediastinal or hilar lymphadenopathy. Mild atherosclerotic disease is seen. Small hiatal hernia is noted. There are suggestion of bilateral renal cysts. No hydronephrosis. IMPRESSION: 1. No acute thoracic spine fracture or dislocation. 2. Mild degenerative disc disease in mid to lower thoracic spine. 3. Bilateral renal cysts. No hydronephrosis. Cardiomegaly. Dictated by: Uvaldo Cobb M.D. on 06/08/2020 at 12:46 Approved by: Uvaldo Cobb M.D. on 06/08/2020 at 12:57
[2020-06-08] MEDS: MORPHINE 4 MG/ML INJ IV ×2 (11:59→17:33)
--- NOTE | 2020-06-08 12:01 | DI.CT.S_ITS ---
PROCEDURE: CT LUMBAR SPINE WO CON INDICATIONS: back pain for several days TECHNIQUE: Noncontrast 3 mm thick sections acquired from the T12 level to the sacrum. Sagittal and coronal reformats were constructed. For radiation dose reduction, the following was used: automated exposure control. COMPARISON: None. FINDINGS: Image quality: Excellent. Bones: There is normal bony alignment. No acute vertebral body compression fractures. No suspicious lytic or blastic bony lesions. Central spinal caliber is of normal overall caliber. No pars defects. T12-L1: Unremarkable. L1-L2: Unremarkable. L2-L3: Unremarkable. L3-L4: Unremarkable. L4-L5: There is mild broad-based disc bulge and bilateral facet arthrosis. No significant canal stenosis or neural foraminal narrowing is seen. L5-S1: Decreased intervertebral disc space and degenerative endplate changes are noted. Vacuum disc phenomena is also seen. Broad-based disc bulge and bilateral facet arthrosis is noted with mild central canal stenosis and left-sided neural foraminal narrowing. Soft tissues: No retroperitoneal masses or hematomas. There are suggestion of bilateral renal cysts. No hydronephrosis. Visualized aorta is normal in caliber. IMPRESSION: 1. No lumbar spine fracture or dislocation. No pars defects. 2. Degenerative disc bulge and bilateral facet arthrosis at L4-5 and L5-S1 levels causing mild central canal stenosis and left-sided neural foraminal narrowing at L5-S1 level. 3. Bilateral renal cysts incompletely evaluated on this CT of lumbar spine study. No hydronephrosis. Dictated by: Uvaldo Cobb M.D. on 06/08/2020 at 12:39 Approved by: Uvaldo Cobb M.D. on 06/08/2020 at 12:46
[2020-06-08 12:10] LABS: Bacteria Urine None Seen; WBC Urine None Seen (0-5/HPF)
[2020-06-08 12:18] LABS: Culture Indicated Urine Cult Not Indicated; Mucus Urine 2+ (Negative); RBC Urine 5-10/HPF (0-5/HPF)
[2020-06-08] MEDS: diazePAM 5 MG TABLET 10 MG PO (13:23)
--- NOTE | 2020-06-08 13:34 | PC.NURSE ---
Patient reports generalized weakness and decreased po intake of food for several weeks. Has existing deficits/weakness to left side form prior stroke.
--- NOTE | 2020-06-08 17:10 | PT.IIE ---
Surgical History (Last Reviewed 06/08/20 @ 11:57 by Traci Wells DO) History of vasectomy Status post appendectomy Medical History (Last Reviewed 06/08/20 @ 11:56 by Traci Wells DO) CVA (cerebral vascular accident) (1992) Depression GERD (gastroesophageal reflux disease) Hyperlipidemia Low back pain RCA occlusion Renal cyst, right Seizures Physical Therapy Inpatient Evaluation/Re-Eval M1 PT/OT-IP Prior Functional Status Start: 06/08/20 15:47 Freq: Status: Active Protocol: Document 06/08/20 16:44 [email or web address] Medical Review Prior Functional Status Medical History Reviewed Yes Diet/Fluid Consistency Regular Communication no deficits noted. able to make needs known Mobility and Gait pt stated he was ind for all mobility at home and community . Activities of Daily Living and IADL's IND for ADLs and IADLs. Pt lives in [facility] nursing home [facility] which offers meals. Prior Functional Level (Other details) pt has hx of CVA that affects his L side primarily on LUE. He normally has his L UE in flexed position with limited ROM/ control with L wrist and fingers. Social History Household Members none Living Arrangements Usp Facility Number of Floors (Floors) One Floor Number of Stairs To Enter/Railing? level entry Home Environment Standard Height Toilet,Walk in Shower,Built-In Shower Seat Home Equipment Straight Cane,Grab Bars In Shower Employment Status Retired Additional Social History Comment Pt lives in [facility]. He stated he has 3 children around the area and has a brother in town that could offer assistance if needed M2 PT-IP Current Condition Start: 06/08/20 15:47 Freq: Status: Active Protocol: Document 06/08/20 16:44 HH (Rec: 06/08/20 17:10 [email or web address]) Physical Therapy Current Condition Current Condition Evaluation Date 06/08/20 Treatment Diagnosis acute LBP, generalized weakness, difficulty with bed mobility and walking Onset Date few days ago Weight Bearing Status Weight Bearing Status Weight Bear as Tolerated M3 PT-IP Subjective Start: 06/08/20 15:47 Freq: Status: Active Protocol: Document 06/08/20 16:44 HH (Rec: 06/08/20 17:10 [email or web address]) Subjective Physical Therapy Visit Type Type Initial Evaluation Visit Start Time 16:01 Visit Stop Time 16:34 Total Visit Minutes 33 Notes ED PT order received. Chart reviewed- no acute fx noted at thoracic / lumbar spine but DJD changes. See reports. Number of SURFACE GRINDER TENDER Visits 0 Physical Therapy Visit Comments Patient Comments I couldnt move my legs too well because of my back Patient Goals to regain his mobility and strength Therapy Pain Assessment Pain When Pain Assessed During Mobility Pain Present Pain Present Pain Reported Location lower back/left hip Intensity 4 Scale Used Numeric (0 - 10) Description Acute Pain Behaviors Calling Out,Facial Grimacing M4 PT-IP Mobility and Gait Start: 06/08/20 15:47 Freq: Status: Active Protocol: Document 06/08/20 16:44 (Rec: 06/08/20 17:10 [id number]) PT-Bed Mobility Assessment Rolling Type of Rolling Roll to Right Level of Assist Minimal Assistance,1 Person Assistance Supine to Sit Supine to Sit Moderate Assistance,1 Person Assistance Sit to Supine Sit to Supine Moderate Assistance,1 Person Assistance Scooting Scooting to Edge of Bed Contact Guard Assistance PT-Transfer Assessment Sit to and From Stand Sit to and from Stand Contact Guard Assistance,1 Person Assistance,Use of Upper Extremities Equipment Transfer Assistive Device Gait Belt,Straight Cane Orthotic/Prosthetic Devices or Brace: No Transfers Transfer Destination Bed Transfer Technique Stand Step Pivot Transfer Ability Level of Assist Minimal Assistance,1 Person Assistance,Use of Upper Extremities Comments Mobility Comments Pt was in stretcher sleeping upon PT arrival. BP at 145/103 HR 71. He is AxO x 3 but appears to be very fatigue and frustrated. Able to provide social hx. Pt appears to be very shaky and he stated he is not usually like that. Instructed pt to get OOB but he has significant difficulty pivoting his legs (R worse than L) to EOB. Pt attempted multiple times but unsuccessful. He ended up needing this PT mod A for supine to sit d/t his LUE weakness from previous stroke and pain with LE movement . Pt was able to sit at EOB on R side. Pt then stood up from tall stretcher with use of SPC on R side. He was very unsteady and had excessive trunk movements. Pt then started to amb with step to pattern with minimal R foot clearance. Pt cont to present shakiness througout the entire body and he could only amb very slowly d/t unsteadiness. CGA was given and pt was only able to amb approx 12 ft and requested to return to bed d/t fatigue and LE weakness. Pt then sat at EOB and he attempted few times to return to supine but unsuccessful. Mod A pt to supine mostly on LEs. pt then rest comfortably in bed. BP at 131/79 HR 75. Gait Assessment Gait Gait Assistance Required: Contact Guard Assist Distance (Feet) 20 Able to Maintain Weight Bearing Status Yes During Gait Assistive Devices Assistive Device Gait Belt,Straight Cane Orthotic/Prosthetic Devices or Brace: No Gait Deviations General Gait Pattern Antalgic,Decreased Stride Length,Decreased Feet Clearance,Lateral Trunk Lean, Step-to Gait Factors Limiting Gait Function Factors Limiting Gait Function Decreased Activity Tolerance, Decreased Strength,Limited Range of Motion,Pain,Poor Balance,Poor Safety Awareness Comments Gait Comments see mobility comments Stair Climbing Assessment Comments Stair Climbing Comments does not have steps/ stair PT-Balance Assessment Sitting Balance and Reactions Static Sitting Balance Ability Normal Dynamic Sitting Balance Ability Good Standing Balance and Reactions Static Standing Balance Ability Fair Dynamic Standing Balance Ability Poor Device Used SPC M5 PT-IP Objective Assessments Start: 06/08/20 15:47 Freq: Status: Active Protocol: Document 06/08/20 16:44 (Rec: 06/08/20 17:10 [email or web address]) Orientation Orientation/Cognition Level of Alertness Alert Orientation Name,Age,Birthday,Month,Date, Year,Day of Week,Place, Situation Language Function Ability No Deficits Noted Safety Awareness Decreased Safety Awareness Memory Description No Deficits Noted Gross Range of Motion Upper Extremity ROM Assessment Left Impaired Impairments pt has hx of CVA that affects his L side primarily on LUE. He normally has his L UE in flexed position with limited ROM/ control with L wrist and fingers. Lower Extremity ROM Assessment Bilaterally Impaired Impairments unable to perform SLR (R >L) has increased tone with passive SLR on R, pain reported during passive movements. Strength Upper Extremity Strength Assessment Left Impaired Shoulder 4/5 Elbow 3/5 Lower Extremity Strength Assessment Bilaterally Impaired Comments Strength Comments L hip = 4-/5 grossly, knee= 4- /5 grossly R hip = 3/5 grossly, knee= 3/5 grossly with pain with resisted mvoements Sensation Assessment Sensation Gross Sensation WNL Light Touch Intact Proprioception (Position) Intact M6 PT-IP Treatment Start: 06/08/20 15:47 Freq: Status: Active Protocol: Document 06/08/20 16:44 HH (Rec: 06/08/20 17:10 [email or web address]) Physical Therapy Treatment Education Education Provided Safety M7 PT-IP Assessment and Plan Start: 06/08/20 15:47 Freq: Status: Active Protocol: Document 06/08/20 16:44 HH (Rec: 06/08/20 17:10 [email or web address]) PT Summary Assessment and Plan Potential Rehabilitation Potential Good Status of Condition at Evaluation Evolving Summary Impairments Pain,ROM,Strength,Balance,Tone ,Cognition,Bed Mobility, Transfers,Gait,Activity Tolerance Assessment Summary Pt is a 74yo male admitted to ER d/t acute onset of LBP with generalized weakness. 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 PLOF= completely independent without need of AD and lives alone in [facility]. He does have L sided weakness from prior CVA. CLOF = pt is very shaky and unsteady during amb with SPC. He also needed mod A for bed mobility d/t significant LBP and LE weakness. He is currently unsafe to d/c home who also lives alone without any assistance previously. This PT has notified MD in ER regarding pt's mobility status who is far from baseline at this point. Pt will benefit from therapy to improve his overall mobility and strength prior to safely d/c home. His need of skilled care would be based on his progress. Goals Bed Mobility Goal Independent Transfer Goal Independent,Cane,Front Wheeled Walker Gait Goal Independent,Cane,Front Wheel Walker Gait Distance 200 Days to Meet Goals 5 Frequency of Treatment Frequency Of Treatment Once a Day Treatment Plan Physical Therapy Treatment Plan Bed Mobility Training,Transfer Training,Gait Training, Therapeutic Exercise,Balance Retraining,Post Op Education, Discharge Planning,Hot or Cold Pack,Neuromuscular Re-ed Other Recommendations and Next Treatment bed mobility Focus gait with SPC/ QC if needed. Recommendations To Nursing Amount of Assist Needed 1 Person Assist Discharge Recommendations PT Discharge Recommendations Home with Assistance,Home Health,SNF Rehab,Outpatient PT Transportation Needs at Discharge Private Vehicle
--- NOTE | 2020-06-08 17:21 | CM.SWNOTE ---
HELPER DRIVER note HELPER DRIVER consult requested for patient. Patient is a 74 y/o male who presents to this ED with increasing pain and weakness. Per report from Dr. Wells, patient contacted EMS 3 times in 12 hours prior to this ED visit. Patient is currently lives alone at [facility]. HELPER DRIVER staffs with Dr. Wells. At time of order, patient is pending PT consult and admission is being considered. HELPER DRIVER and Dr. Wells agree to defer HELPER DRIVER consult until after PT consult. Per report from Dr. Wells, patient is requiring significant assistance in and out of bed. This HELPER DRIVER reviews chart, but does not meet with patient. Following PT consult, plan of care is for patient to be admitted. From PT note he is currently unsafe to d/c to home. HARSHAL Perry
[2020-06-08 19:59] LABS: Hemoglobin A1C% w Est Avg Glu 6.2 % (4.0-6.0)
[2020-06-08 20:30] LABS: NT-proBNP (BNP-Adult 18+) 160 pg/mL (<125)
[2020-06-08] MEDS: TRAZODONE 50 MG TABLET PO (20:30)
[2020-06-08] MEDS: NIACIN 500 MG TAB ER PO (20:30)
--- NOTE | 2020-06-08 20:44 | P.HP_ITS ---
History of Present Illness History of Present Illness Date Patient Seen: 06/08/20 Time Patient Seen: 19:39 Chief complaint: decreased mobility, increased weakness Narrative: This is a 74-year-old male Dionicio Watts who presented to the emergency department for acute back pain. Patient states for the last several days he has had significant increase in pain in his thoracic and lumbar back. Patient states he has typically had lower back pain in the lumbar region is little atypical for the middle back. Patient states it also radiates down to his hips left greater than right and groin a little bit. He states he has been trying ibuprofen and Aspercreme with no improvement. He has had difficulty getting in and out of bed due to increased pain in the right hip inhibiting the patient from lifting his right leg. He states he slipped to the floor after trying to get out of bed last night and was unable to get up back to his bed and had to call EMS, they returned this morning to help him sit up and then patient called him a 3rd time and they convinced him to come to the ER. Denies any recent trauma or significant injuries. He thinks he may have pulled a muscle in his back. 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 States his left leg seems maybe a little bit weaker. Denies any new numbness, tingling. He denies any prior heart attacks, no diabetes, or back surgeries. Patient has a history of hyperlipidemia, hypertension, GERD, depression, renal cyst, chronic low back pain, and seizures ( no activity or medication since 2011). Patient is admitted for new onset of back pain started 2 days ago his current pa in level is 6/10 while laying in bed which she reports is unchanged following medication in the emergency room, he notes that the back pain is worse in the left hip over the right hip, but during physical exam patient is unwilling to lift his right leg due to severe back pain that radiates to right hip, he thinks he may have pulled a groin muscle as well, and notes ?rolling side to side in bed is even difficult and painful movement is an exacerbating factor. Patient avoids movement of any kind that will exacerbate right hip pain. Patient denies any recent falls injury trauma or surgery, the pain is constant it is been unrelieved with at home Aspercreme and ibuprofen, he has not attempted heat stretching physical therapy or other modalities. He describes the pain as a feeling of a pulled muscle and he can't walk or even get in or out of bed. The patient has chronic left-sided weakness from previous CVA, patient does not describe inability to move specifically his right leg due to weakness but rather describes it as pain, patient adheres to avoidance of activity. Patient denies fever, body aches, chills, nausea, vomiting, diarrhea, hematochezia, or black tarry stools, hemoptysis, cough, shortness of breath, dysuria, but does note nocturia x4 chronically, last BM was yesterday, patient reports having an average fair appetite no change, denies new onset change of numbness tingling or sensation changes, denies changes in balance coordination or vision, denies difficulty with speech or swallowing. Patient lives alone in [facility] independent living, had a 30 year smoking history but quit in the . Patient's chest x-ray showed decrease inspiratory volume, weakness of unknown etiology, CT of the lumbar spine demonstrated mild central canal stenosis and left-sided neural foraminal narrowing at L5-S1 level, which is a new change, CT of the thoracic spine had no pertinent findings, hemoglobin 13, hematocrit 40.3, WBC 12.1, RDW 15.6, troponin was negative, lactate 0.9, in ER patient had a temp of 99.1?, all other vital signs were stable, patient's pain did not improve with 10 mg of diazepam 10 and 8 mg of morphine in the emergency room. Patient History Medical History CVA (cerebral vascular accident) (1992) Depression GERD (gastroesophageal reflux disease) Hyperlipidemia Low back pain RCA occlusion Renal cyst, right Seizures Surgical History (Updated 06/08/20 @ 20:47 by SASHA Ferro) History of skin surgery History of vasectomy Status post appendectomy Family & Social History Family History (Updated 06/08/20 @ 20:51 by SASHA Ferro) Father Heart attack Mother No problems noted. Brother No problems noted. Brother No problems noted. Sister No problems noted. Social History: household members lives alone Prior Living Arrangements [facility]idential [facility] independent living lives independently Yes caregiver/support person No Safety & Behavioral: Feels Safe in Current Yes Environment Been Physically Hurt or No Threatened By a Person Suicidal Ideation Description None Suicide Plan Description No Plan Tobacco & Substance use: Tobacco type cigars Smoking Status Smoked x 30 yrs, quit in alcohol intake never alcohol intake frequency never Substance Use Type does not use Meds Home Medications and Allergies Home Medications Medication Instructions Recorded Confirmed Type atorvastatin 80 mg tablet 80 mg PO DAILY 03/25/18 06/08/20 History finasteride 5 mg tablet 5 mg PO DAILY 03/25/18 05/13/19 History aspirin 425 mg PO DAILY 05/13/19 06/08/20 History lisinopril 40 mg PO DAILY 05/13/19 06/08/20 History niacin [Slo-Niacin] 500 mg PO BEDTIME 05/13/19 06/08/20 History sertraline 100 mg PO DAILY 05/13/19 06/08/20 History trazodone 50 mg PO BEDTIME 05/13/19 06/08/20 History Disabled Parking Permit #1 ea 05/26/19 Rx esomeprazole magnesium [Nexium] 40 mg PO DAILY 06/08/20 06/08/20 History Allergies Allergy/AdvReac Type Severity Reaction Status Date / Time No Known Drug Allergies Allergy Verified 06/08/20 10:11 Review of Systems Constitutional Constitutional: Reports system reviewed and no additional complaints, except as documented, Reports body ache(s), Reports fatigue and Reports poor appetite Eyes Eyes: Reports system reviewed and no additional complaints, except as documented ENT Ears, Nose, Mouth, and Throat: Yes system reviewed and no additional complaints, except as documented Cardiovascular Cardiovascular: Reports system reviewed and no additional complaints, except as documented Respiratory Respiratory: Reports system reviewed and no additional complaints, except as documented Gastrointestinal Gastrointestinal: Reports system reviewed and no additional complaints, except as documented Genitourinary Genitourinary: Reports system reviewed and no additional complaints, except as documented and Reports nocturia (x4 per night) Musculoskeletal Musculoskeletal: Reports back pain and Reports myalgias Comments: Bilateral hip pain greater on LT/RT, no radiation, causes limited movement of the right leg. Denies weakness. Integumentary/Breasts Skin/Breast: Reports system reviewed and no additional complaints, except as documented Neurologic Neurologic: Reports system reviewed and no additional complaints, except as documented Psychiatric Psychiatric: Reports system reviewed and no additional complaints, except as documented, Reports depression and Reports anhedonia Comments: Denies SI Endocrine Endocrine: Reports system reviewed and no additional complaints, except as documented and Reports fatigue Hematologic/Lymphatic Hematologic/Lymphatic: Reports system reviewed and no additional complaints, except as documented Allergic/Immunologic Allergic/Immunologic: Reports system reviewed and no additional complaints, except as documented Exam Vital Signs (past 8 hours): - 06/08/20 13:00 06/08/20 13:30 06/08/20 14:00 Temperature Pulse Rate 78 79 77 Respiratory Rate 23 Blood Pressure 128/79 115/87 127/75 Pulse Oximetry 96 97 96 06/08/20 14:30 06/08/20 15:00 06/08/20 15:30 Temperature Pulse Rate 77 77 74 Respiratory Rate 18 21 16 Blood Pressure 129/75 139/74 137/79 Pulse Oximetry 96 95 96 06/08/20 16:00 06/08/20 16:01 06/08/20 16:30 Temperature Pulse Rate 78 82 74 Respiratory Rate 27 H 30 H 26 H Blood Pressure 145/103 H 131/79 Pulse Oximetry 97 98 06/08/20 17:00 06/08/20 17:30 06/08/20 18:00 Temperature Pulse Rate 76 75 75 Respiratory Rate 27 H 22 Blood Pressure Pulse Oximetry 96 96 95 06/08/20 18:15 06/08/20 18:25 06/08/20 20:32 Temperature 99.1 F 97.4 F L Pulse Rate 75 76 77 Respiratory Rate 28 H 18 18 Blood Pressure 133/75 127/71 127/73 Pulse Oximetry 96 96 96 Oxygen Delivery Method Room Air Oxygen Flow Rate 0 Narrative Exam Narrative: Exam Narrative: GEN: moderately nourished, well groomed male, who appears stated age, alert and oriented, depressed affect in no distress or pain at rest. HEENT: Normocephalic, Atraumatic, patient has 2 symmetrical skin grafts to the top of the scalp to a in hair piece placement, pupils are equal round reactive to light, extraocular movements are intact, nares are clear, oropharynx is clear and mucous membranes are moist without any exudates, erythema, tonsillar enlargement or uvular deviation, no dysarthria. Neck is supple and symmetric trachea is midline there is no thyroid enlargement, nontender, no masses palpated. HEART: Regular rate and rhythm without murmur, clicks, rubs. No carotid bruits, pulses are equal in upper and lower extremities LUNGS:Lungs clear to auscultation, no wheezes, rales, crackles, chest moves symmetrically ABD:bowel sounds normal active in all 4 quadrants, soft, non-tender, no guarding , rebound, rigidity, no masses noted, no organomegaly. No CVA tenderness BACK: No cervical, thoracic or lumbar vertebral point tenderness. Patient has tissue tightness and some discomfort in the bilateral lower lumbar and mid lumbar region with palpation. No ecchymosis or skin changes. Patient has decreased range of motion of the left hand/arm (RCA occlusion) left-sided deficit, unable to test range of motion or motor strength of lower right leg due to patient refusal due to pain. Patient's gait is not tested. Muscle strength is 5/5 on right lower extremity, 4/5 on left lower extremity, DTRs are 2/4 and lower extremities. Dorsalis pedis and tibialis pulses are 2+ and lower extremities. Sensation is intact in bialteral lower extremities. NEURO: Alert and orientated x3 slightly, depressed affect, CN 2-12 intact, sensation normal PSYCH: Patient's appearance is well groomed, and mental status added to, thought context and judgment are appropriate for age. Patient notes depression 3/4, and denies suicidal ideation. Objective Labs Result Diagrams: 06/08/20 10:45 06/08/20 10:45 Labs: Laboratory Results - last 24 hr 06/08/20 06/08/20 06/08/20 10:45 10:45 10:45 WBC 12.1 H RBC 4.82 Hgb 13.0 L Hct 40.3 L MCV 83.7 MCH 27.1 MCHC 32.3 RDW 15.6 H Plt Count 267 Neut % (Auto) 89.3 H Lymph % (Auto) 3.6 L [place] % (Auto) 6.9 Eos % (Auto) 0.0 L Baso % (Auto) 0.2 Neut # (Auto) 95698 H Lymph # (Auto) 400 L [place] # (Auto) 800 Eos # (Auto) 0 Baso # (Auto) 0 PT 14.2 H INR 1.2 APTT 30 Sodium Potassium Chloride Carbon Dioxide BUN Creatinine Estimated GFR BUN/Creatinine Ratio Glucose Hemoglobin A1c Lactate Calcium Total Bilirubin AST ALT Alkaline Phosphatase Total Creatine Kinase CK-MB (CK-2) CK-MB (CK-2) Rel Index Troponin I NT-Pro-B Natriuret Pep Total Protein Albumin Globulin Albumin/Globulin Ratio Procalcitonin < 0.05 Urine RBC Urine WBC Urine Bacteria Urine Mucus Ur Culture Indicated? COVID-19 PCR 06/08/20 06/08/20 06/08/20 10:45 10:45 10:45 WBC RBC Hgb Hct MCV MCH MCHC RDW Plt Count Neut % (Auto) Lymph % (Auto) [place] % (Auto) Eos % (Auto) Baso % (Auto) Neut # (Auto) Lymph # (Auto) [place] # (Auto) Eos # (Auto) Baso # (Auto) PT INR APTT Sodium 139 Potassium 3.7 Chloride 101 Carbon Dioxide 30 BUN 16 Creatinine 0.93 Estimated GFR > 60.0 BUN/Creatinine Ratio 17.2 Glucose 133 H Hemoglobin A1c Lactate 0.9 Calcium 9.8 Total Bilirubin 0.7 AST 39 ALT 25 Alkaline Phosphatase 95 Total Creatine Kinase 237 H CK-MB (CK-2) 1.33 CK-MB (CK-2) Rel Index 0.6 L Troponin I < 0.012 NT-Pro-B Natriuret Pep Total Protein 7.8 Albumin 4.4 Globulin 3.4 Albumin/Globulin Ratio 1.3 Procalcitonin Urine RBC Urine WBC Urine Bacteria Urine Mucus Ur Culture Indicated? COVID-19 PCR 06/08/20 06/08/20 06/08/20 10:45 10:45 10:45 WBC RBC Hgb Hct MCV MCH MCHC RDW Plt Count Neut % (Auto) Lymph % (Auto) [place] % (Auto) Eos % (Auto) Baso % (Auto) Neut # (Auto) Lymph # (Auto) [place] # (Auto) Eos # (Auto) Baso # (Auto) PT INR APTT Sodium Potassium Chloride Carbon Dioxide BUN Creatinine Estimated GFR BUN/Creatinine Ratio Glucose Hemoglobin A1c 6.2 H Lactate Calcium Total Bilirubin AST ALT Alkaline Phosphatase Total Creatine Kinase CK-MB (CK-2) CK-MB (CK-2) Rel Index Troponin I NT-Pro-B Natriuret Pep 160 H Total Protein Albumin Globulin Albumin/Globulin Ratio Procalcitonin Urine RBC Urine WBC Urine Bacteria Urine Mucus Ur Culture Indicated? COVID-19 PCR Negative 06/08/20 12:00 WBC RBC Hgb Hct MCV MCH MCHC RDW Plt Count Neut % (Auto) Lymph % (Auto) [place] % (Auto) Eos % (Auto) Baso % (Auto) Neut # (Auto) Lymph # (Auto) [place] # (Auto) Eos # (Auto) Baso # (Auto) PT INR APTT Sodium Potassium Chloride Carbon Dioxide BUN Creatinine Estimated GFR BUN/Creatinine Ratio Glucose Hemoglobin A1c Lactate Calcium Total Bilirubin AST ALT Alkaline Phosphatase Total Creatine Kinase CK-MB (CK-2) CK-MB (CK-2) Rel Index Troponin I NT-Pro-B Natriuret Pep Total Protein Albumin Globulin Albumin/Globulin Ratio Procalcitonin Urine RBC 5-10/hpf H Urine WBC None seen Urine Bacteria None seen Urine Mucus 2+ H Ur Culture Indicated? Cult not indicated COVID-19 PCR Assessment & Plan Assessment & Plan narrative: Patient is a 74-year-old male with a history of CVA, hyperlipidemia, depression, GERD, and hyperlipidemia that was admitted inpatient observation for debilitating severe back pain of unknown etiology, with a history of recent falls and EMS calls and residual left sided weakness from previous CVA. Patient presented with an elevated white count, temperature 99.1?, decreased H/H, mild central canal stenosis and left-sided neural femoral narrowing at L5-S1 level, and inability to ambulate independently without falls, patient lives alone in an independent assisted community. These contributing factors put the patient at high risk for readmissions. Patient demonstrated that he had failed outpatient management without improvement coupled with increased risks factors for mortality. 1. Acute debilitating severe low back pain of unknown etiology, acute on chronic, present on admission, not improved with initial pain management. Possible CVA, diverticulosis, segmental colitis associated with diverticulosis (SCAD), cystitis, UTI, central canal stenosis/foraminal narrowing, right hip injury. -patient is unable to ambulate safely and independently and perform his ADLs as the patient lives alone. -CT of lumbar: No lumbar spine fracture or dislocation. No pars defects, Degenerative disc bulge and bilateral facet arthrosis at L4-5 and L5-S1 levels causing mild central canal stenosis and left-sided neural foraminal narrowing at L5-S1 level, Bilateral renal cysts incompletely evaluated on this CT of lumbar spine study. No hydronephrosis. -CT of thoracic spine:No acute thoracic spine fracture or dislocation. Mild degenerative disc disease in mid to lower thoracic spine. Bilateral renal cysts. No hydronephrosis. Cardiomegaly. -chest x-ray: Reduced inspiratory volume, source of weakness is not found. -WBC 12.1,hemoglobin 13, hematocrit 40.3, RDW 15.6, repeat CBC in AM glucose 133, A1c ordered, negative troponin, CK-MB 0.6, lactate 0.9, total creatinine kinase 237 blood cultures pending, urinalysis negative will repeat in the a.m. patient has a history of emergency room visit for UTI. -IV hydration normal saline 1000 cc given in ER, patient now 50cc/hr NS. -leukocytosis CRP ESR the a.m. -patient had a CT of the abdomen pelvis on 01/19/2020 which demonstrated diverticulosis, mild colitis, and possible cystitis. Have ordered repeat CT of abdomen and pelvis considering possible referred pain. -patient's avoidance of activity appears to be centralized around right hip pain, have ordered right hip x-ray to rule out fracture injury. 2. Hyperlipidemia, chronic, well controlled, present on admission -continue patient's after the statin 80 mg and Slo-Niacin 500 mg. 3. GERD, chronic, well controlled, present on admission -continue patient's Nexium 40 mg 4. Depression, acute on chronic, well controlled, present on admission -continue sertraline 50 mg and trazodone 50 mg daily -depression 08/31 patient denies suicidal ideation COVID: Negative Code status: Full code Decision maker: Son Kamari Watts [id number]: None Scores GCS Kathy coma scale eye opening: Spontaneous Kathy coma scale verbal response: Orientated Kathy coma scale motor response: Obey commands Matheson coma scale total score: 15 NIHSS Level of Conciousness: Alert, keenly responsive Ask month/age: Answers both questions correctly. Open/close eyes, close hand: Performs one task correctly Best gaze horizontal: Normal Visual villeda: No visual loss Facial palsy: Minor paralysis, flattened nasolabial fold, asymmetry on smiling Left arm drift: No drift for full 10 sec Right arm drift: No drift for full 10 sec Left leg drift: No drift for full 5 sec Right leg drift: No movement (Patient unwilling to perform exam) Limb ataxia: Present in two limbs Sensory on face/arms/legs: Normal, no sensory loss Best language: No aphasia, normal Dysarthria: Normal Extinction or inattention: No abnormality Total NIH Stroke scale score: 8 Wells' Criteria for PE Clinical signs and symptoms of DVT: No PE is #1 Dx or equally likely: No Heart rate > 100: Yes Immobilization at least 3 days or surg in previous 4 weeks: No History of PE or DVT: No Hemoptysis: No Malignancy w/Treatment within 6 months or palliative: No Wells' PE Score total: 1.5 Quality VTE Deep Vein Thrombosis/Pulmonary Embolism Present on Admission: No
[2020-06-08 21:30] LABS: Appearance Urine UA CLEAR; Bilirubin Urine UA NEGATIVE (NEGATIVE); Color Urine UA YELLOW; Glucose Urine UA NEGATIVE (Negative); Ketones Urine UA TRACE (NEGATIVE); Leukocyte Esterase Urine UA NEGATIVE (NEGATIVE); Nitrite Urine UA NEGATIVE (Negative); Occult Blood Urine UA 3+ (Negative); Protein Urine UA TRACE (Negative); Specific Gravity Urine UA 1.015 (1.000-1.035); Urobilinogen Urine UA 0.2 E.U./dL (0.2); pH Urine UA 6.5 (4.5-8.0)
[2020-06-08 21:38] LABS: RBC Urine 10-30/HPF (0-5/HPF); Squamous Epithelial Cell Urine 0-1 /HPF (0-5/HPF); WBC Urine 0-1/HPF (0-5/HPF)
[2020-06-08 21:39] LABS: Bacteria Urine Occasional (0-1); Culture Indicated Urine Cult Not Indicated
[2020-06-09] VITALS: BP 121/61; PULSE 73; RESP 18; TEMP 36.2; O2SAT 95
[2020-06-09 01:00] VITALS: O2SAT 97
[2020-06-09] MEDS: ACETAMINOPHEN 325 MG TABLET 650 MG PO (02:34)
[2020-06-09] MEDS: SODIUM CHLORIDE 0.9% 1,000 ML 150 ML IV (02:35)
[2020-06-09] MEDS: LIDOCAINE PATCH 1 EACH ADH..PATCH TOP ×2 (04:00→09:57)
[2020-06-09] MEDS: ONDANSETRON 4 MG ODT PO (04:03)
--- NOTE | 2020-06-09 04:06 | PC.NURSE ---
Addendum entered by Feliciano Damon R.N. 06/09/20 05:53: Pt reports good results w/lidocaine patch. Half of patch at low back, half at R groin Original Note: Lidocaine patch placed at low back.
[2020-06-09 05:00] VITALS: O2SAT 96
[2020-06-09] MEDS: PANTOPRAZOLE 40 MG TABLET PO (05:21)
[2020-06-09 05:24] VITALS: BP 102/67; PULSE 89; RESP 16; TEMP 36.4; O2SAT 96
[2020-06-09 06:03] LABS: Add Manual Diff / Slide Review NO; Basophils Absolute Auto 0 /uL (0-100); Basophils Percent Auto 0.2 % (0-2); Eosinophils Absolute Auto 0 /uL (0-450); Eosinophils Percent Auto 0.4 % (2-4); Hematocrit 36.4 % (41-53); Lymphocytes Absolute Auto 1100 /uL (1100-4500); Lymphocytes Percent Auto 12.5 % (25-40); Mean Corpuscular HGB Conc 33.1 % (30-36); Mean Corpuscular Hemoglobin 27.7 PG (26-34); Mean Corpuscular Volume 83.7 fL (80-100); Monocytes Absolute Auto 900 /uL (0-900); Monocytes Percent Auto 9.8 % (3-14); Neutrophils Absolute Auto 7000 /uL (1500-7000); Neutrophils Percent Auto 77.1 % (50-75); Platelet Count 212 X10^3/uL (150-400); Red Blood Cell Count 4.35 X10^6/uL (4.5-5.9); Red Cell Distribution Width 15.7 % (11.6-14.8)
[2020-06-09 06:13] LABS: BUN Creatinine Ratio 18.5 (6-22); Blood Urea Nitrogen 15 mg/dL (9-20); Calcium 8.9 mg/dL (8.4-10.2); Carbon Dioxide 26 mmol/L (22-32); Chloride 107 mmol/L (98-107); Cholesterol 108 mg/dL (140-199); Estimated Glomerular Filt Rate > 60.0 mL/min (>60); Glucose 98 mg/dL (80-110); HDL Cholesterol 50 mg/dL (40-60); HEMOLYSIS < 15 (0-50); LDL Cholesterol Calculated 44 mg/dL (<100); Potassium 3.5 mmol/L (3.4-5.1); Sodium 139 mmol/L (137-145); Triglycerides 68 mg/dL (35-150)
[2020-06-09 06:15] LABS: Erythrocyte Sedimentation Rate 21 MM/HR (0-15)
[2020-06-09 06:32] LABS: C-Reactive Protein Quant 13.3 mg/dL (<1.0)
[2020-06-09 08:00] VITALS: BP 123/74; PULSE 85; RESP 14; TEMP 37.1; O2SAT 97
--- NOTE | 2020-06-09 08:15 | PT.IPTN ---
Physical Therapy Treatment Note M2 PT-IP Current Condition Start: 06/08/20 15:47 Freq: Status: Active Protocol: Document 06/08/20 16:44 [facility] (Rec: 06/08/20 17:10 [email or web address]) Physical Therapy Current Condition Current Condition Evaluation Date 06/08/20 Treatment Diagnosis acute LBP, generalized weakness, difficulty with bed mobility and walking Onset Date few days ago Weight Bearing Status Weight Bearing Status Weight Bear as Tolerated M3 PT-IP Subjective Start: 06/08/20 15:47 Freq: Status: Active Protocol: Document 06/09/20 08:15 [facility] (Rec: 06/09/20 11:15 [facility] [id number]) Subjective Physical Therapy Visit Type Type Treatment Note Visit Start Time 07:48 Visit Stop Time 08:15 Total Visit Minutes 27 Number of DIRECTOR TRANSITION Visits 0 Physical Therapy Visit Comments Patient Comments Pt reprots back is better today Therapy Pain Assessment Pain When Pain Assessed During Mobility Pain Present Pain Present Pain Reported Location lower back/left hip Intensity 6 Scale Used Numeric (0 - 10) Description Acute Pain Behaviors Facial Grimacing M4 PT-IP Mobility and Gait Start: 06/08/20 15:47 Freq: Status: Active Protocol: Document 06/09/20 08:15 [facility] (Rec: 06/09/20 11:15 [facility] [id number]) PT-Bed Mobility Assessment Rolling Type of Rolling Roll to Right Level of Assist Minimal Assistance,1 Person Assistance Supine to Sit Supine to Sit Moderate Assistance,1 Person Assistance Scooting Scooting to Edge of Bed Contact Guard Assistance PT-Transfer Assessment Sit to and From Stand Sit to and from Stand Contact Guard Assistance,1 Person Assistance,Use of Upper Extremities Equipment Transfer Assistive Device Gait Belt,Straight Cane Orthotic/Prosthetic Devices or Brace: No Gait Assessment Gait Gait Assistance Required: Contact Guard Assist Distance (Feet) 40 Able to Maintain Weight Bearing Status Yes During Gait Assistive Devices Assistive Device Gait Belt,Straight Cane Orthotic/Prosthetic Devices or Brace: No Gait Deviations General Gait Pattern Antalgic,Decreased Stride Length,Decreased Feet Clearance,Lateral Trunk Lean, Step-to Gait Factors Limiting Gait Function Factors Limiting Gait Function Decreased Activity Tolerance, Decreased Strength,Limited Range of Motion,Pain,Poor Balance,Poor Safety Awareness Comments Gait Comments Pt did supine to sit with overall mod A d/t difficulty getting trunk upright. Pt able to scoot to EOB with CGA and stood CGA. He amb with SPC to restroom and stood SBA to urinate then amb in room 20ft then sat in chair with dec controlt o lower d/t R groin pain. Pt stood again to walk 10ft with SPC CGA to WC d/t leaving for procedure soon. Pt left in w/c with call light inr each. M5 PT-IP Objective Assessments Start: 06/08/20 15:47 Freq: Status: Active Protocol: Document 06/08/20 16:44 [facility] (Rec: 06/08/20 17:10 [email or web address]) Orientation Orientation/Cognition Level of Alertness Alert Orientation Name,Age,Birthday,Month,Date, Year,Day of Week,Place, Situation Language Function Ability No Deficits Noted Safety Awareness Decreased Safety Awareness Memory Description No Deficits Noted Gross Range of Motion Upper Extremity ROM Assessment Left Impaired Impairments pt has hx of CVA that affects his L side primarily on LUE. He normally has his L UE in flexed position with limited ROM/ control with L wrist and fingers. Lower Extremity ROM Assessment Bilaterally Impaired Impairments unable to perform SLR (R >L) has increased tone with passive SLR on R, pain reported during passive movements. Strength Upper Extremity Strength Assessment Left Impaired Shoulder 4/5 Elbow 3/5 Lower Extremity Strength Assessment Bilaterally Impaired Comments Strength Comments L hip = 4-/5 grossly, knee= 4- /5 grossly R hip = 3/5 grossly, knee= 3/5 grossly with pain with resisted mvoements Sensation Assessment Sensation Gross Sensation WNL Light Touch Intact Proprioception (Position) Intact M6 PT-IP Treatment Start: 06/08/20 15:47 Freq: Status: Active Protocol: Document 06/08/20 16:44 (Rec: 06/08/20 17:10 [email or web address]) Physical Therapy Treatment Education Education Provided Safety M7 PT-IP Assessment and Plan Start: 06/08/20 15:47 Freq: Status: Active Protocol: Document 06/09/20 08:15 [facility] (Rec: 06/09/20 11:15 [facility] [id number]) PT Summary Assessment and Plan Summary Impairments Pain,ROM,Strength,Balance,Tone ,Cognition,Bed Mobility, Transfers,Gait,Activity Tolerance Assessment Summary Pt was able to ambulate more today but did still show unsteadiness with gait even with cane d/t pain in groin in RLE and back pain. He is still limited by activity tolerance d/t pain. He would beneift from cont PT to help with mobility and may require CG training to train family members on how to assist. Goals Bed Mobility Goal Independent Transfer Goal Independent,Cane,Front Wheeled Walker Gait Goal Independent,Cane,Front Wheel Walker Gait Distance 200 Days to Meet Goals 5 Frequency of Treatment Frequency Of Treatment Once a Day Treatment Plan Physical Therapy Treatment Plan Bed Mobility Training,Transfer Training,Gait Training, Therapeutic Exercise,Balance Retraining,Post Op Education, Discharge Planning,Hot or Cold Pack,Neuromuscular Re-ed Other Recommendations and Next Treatment bed mobility Focus gait with SPC Recommendations To Nursing Amount of Assist Needed 1 Person Assist Discharge Recommendations PT Discharge Recommendations Home with Assistance,Home Health,SNF Rehab,Outpatient PT Transportation Needs at Discharge Private Vehicle
--- NOTE | 2020-06-09 08:47 | DI.CT.S_ITS ---
PROCEDURE: CT ABDOMEN PELVIS WO/W CON INDICATIONS: right hip pain, hematuria TECHNIQUE: Optional 5 mm thick noncontrast images acquired from the diaphragm to the symphysis pubis. After the administration of intravenous contrast, 5 mm thick images acquired from the diaphragm to the symphysis pubis after a 10-minute delay. 2 mm thick coronal and sagittal reformats were then performed of the kidneys and ureters. For radiation dose reduction, the following was used: automated exposure control, adjustment of mA and/or kV according to patient size. COMPARISON: [facility], CT, CT ABDOMEN PELVIS WO/W CON, 01/19/2020, 10:26. FINDINGS: Image quality: Excellent. Lung bases: Lung bases are clear. Heart size is normal. Coronary artery calcifications. Urinary system: Both kidneys are normal in size, without hydronephrosis on pre-contrast images. No right-sided stones. Tiny left middle pole calcifications may represent mm stones versus vascular calcifications. No perinephric fat stranding. There is normal bilateral renal enhancement. Renal calyces appear normal in morphology when filled with contrast. Bilateral renal simple cysts, including a 9.4 cm right lower pole exophytic cyst. Opacified portions of both ureters demonstrate normal caliber. Mild bladder wall thickening. Impression on the base of the bladder by an enlarged heterogeneous prostate. No calcified bladder stones. Other solid organs: Liver is normal in size and enhancement. Gallbladder is unremarkable. Biliary system is non dilated. Pancreas enhances normally. Spleen is normal in size and enhancement. No adrenal nodules. Peritoneum and bowel: Bowel loops demonstrate normal wall thickness and caliber. No free fluid or air. Diverticulosis without evidence of diverticulitis. No abscess cavity. Nodes and vessels: No retroperitoneal or mesenteric adenopathy by size criteria. Aorta and inferior vena cava are normal in size. Calcifications involving the origin of the celiac and SMA and origin of the bilateral renals. Mild calcification of the infrarenal abdominal aorta and iliacs. Abdominal wall: No ventral hernias. Pelvis: No pathologic free pelvic fluid. Left inguinal hernia containing fat. No inguinal adenopathy. Bones: No suspicious bony lesions. No vertebral body compression fractures. Mild bilateral hip degenerative change. Partial lumbarization of S1. IMPRESSION: 1. Question tiny nonobstructing left renal stones versus vascular calcifications. 2. No hydronephrosis or suspicious mass. No ureteral stones. 3. Coronary artery disease, mild generalized atherosclerosis. 4. 9.5 cm right renal cyst. 5. Enlarged prostate, mild diffuse bladder wall thickening. 6. Diverticulosis without evidence of diverticulitis. 7. Left inguinal hernia containing fat. 8. Mild bilateral hip degenerative arthritis. Dictated by: Mc Earl M.D. on 06/09/2020 at 9:05 Approved by: Mc Earl M.D. on 06/09/2020 at 9:12
--- NOTE | 2020-06-09 09:00 | DI.RAD.S_ITS ---
PROCEDURE: XR HIP W PEL IF DONE RT 2V INDICATIONS: right hip pain TECHNIQUE: AP pelvis with lateral view(s) of the right hip(s). COMPARISON: [facility], CT, CT ABDOMEN PELVIS WO/W CON, 06/09/2020, 8:40. [facility], CT, CT LUMBAR SPINE WO CON, 06/08/2020, 11:54. FINDINGS: Bones: No fractures or dislocations. Pelvic ring appears intact. No suspicious bony lesions. Mild symmetric hip joint degeneration bilaterally. Soft tissues: The visualized bowel gas pattern is normal. Vascular calcifications noted. IMPRESSION: No acute osseous abnormalities. Mild degenerative joint disease. Dictated by: Rikki Bedolla M.D. on 06/09/2020 at 9:17 Approved by: Rikki Bedolla M.D. on 06/09/2020 at 9:19
[2020-06-09] MEDS: SERTRALINE 50 MG TABLET 100 MG PO (09:49)
[2020-06-09] MEDS: ASPIRIN 325 MG TABLET 425 MG PO (09:55)
[2020-06-09] MEDS: lisinopriL 20 MG TABLET 40 MG PO (09:56)
[2020-06-09] MEDS: ATORVASTATIN 20 MG TABLET 80 MG PO (09:57)
[2020-06-09] MEDS: ENOXAPARIN 40 MG/0.4 ML SYRINGE SUBCUT (10:00)
--- NOTE | 2020-06-09 10:48 | PC.NURSE ---
Addendum entered by Stella Trotter R.N. 06/09/20 10:53: Patient is connected to a chair alarm, he states that he thinks that he could ambulate by himself but he knows the rules and will call for help. Original Note: Patients lidocaine patch placed, one patch cut into 3 pieces. He has two on each thigh area and then the other half to his lower r.back. He states that this has helped him with discomfort. Patient has a hx of r.sided stroke that has affected his left side, he limps when ambulating and his arm is stiff and contracted. He is a one person assist to use the bathroom with a gaitbelt and walker. Patient has some minor bruises to his arms. He otherwise denies pain, he ate a small amount of breakfast and is sitting up in his chair.
--- NOTE | 2020-06-09 11:36 | P.DS_ITS ---
History of Present Illness History of Present Illness Date Patient Seen: 06/09/20 Time Patient Seen: 12:17 Chief complaint: decreased mobility, increased weakness Narrative: As per IKER Ferro: This is a 74-year-old male Dionicio Watts who presented to the emergency department for acute back pain. Patient states for the last several days he has had significant increase in pain in his thoracic and lumbar back. Patient states he has typically had lower back pain in the lumbar region is little atypical for the middle back. Patient states it also radiates down to his hips left greater than right and groin a little bit. He states he has been trying ibuprofen and Aspercreme with no improvement. He has had difficulty getting in and out of bed due to increased pain in the right hip inhibiting the patient from lifting his r ight leg. He states he slipped to the floor after trying to get out of bed last night and was unable to get up back to his bed and had to call EMS, they returned this morning to help him sit up and then patient called him a 3rd time and they convinced him to come to the ER. Denies any recent trauma or significant injuries. He thinks he may have pulled a muscle in his back. 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 States his left leg seems maybe a little bit weaker. Denies any new numbness, tingling. He denies any prior heart attacks, no diabetes, or back surgeries. Patient has a history of hyperlipidemia, hypertension, GERD, depression, renal cyst, chronic low back pain, and seizures ( no activity or medication since 2011). Patient is admitted for new onset of back pain started 2 days ago his current pain level is 6/10 while laying in bed which she reports is unchanged following medication in the emergency room, he notes that the back pain is worse in the left hip over the right hip, but during physical exam patient is unwilling to lift his right leg due to severe back pain that radiates to right hip, he thinks he may have pulled a groin muscle as well, and notes ?rolling side to side in bed is even difficult and painful movement is an exacerbating factor. Patient avoids movement of any kind that will exacerbate right hip pain. Patient denies any recent falls injury trauma or surgery, the pain is constant it is been unrelieved with at home Aspercreme and ibuprofen, he has not attempted heat stretching physical therapy or other modalities. He describes the pain as a feeling of a pulled muscle and he can't walk or even get in or out of bed. The patient has chronic left-sided weakness from previous CVA, patient does not describe inability to move specifically his right leg due to weakness but rather describes it as pain, patient adheres to avoidance of activity. Patient denies fever, body aches, chills, nausea, vomiting, diarrhea, hematochezia, or black tarry stools, hemoptysis, cough, shortness of breath, dysuria, but does note nocturia x4 chronically, last BM was yesterday, patient reports having an average fair appetite no change, denies new onset change of numbness tingling or sensation changes, denies changes in balance coordination or vision, denies difficulty with speech or swallowing. Patient lives alone in [facility] independent living, had a 30 year smoking history but quit in the . Pat sharda's chest x-ray showed decrease inspiratory volume, weakness of unknown etiology, CT of the lumbar spine demonstrated mild central canal stenosis and left-sided neural foraminal narrowing at L5-S1 level, which is a new change, CT of the thoracic spine had no pertinent findings, hemoglobin 13, hematocrit 40.3, WBC 12.1, RDW 15.6, troponin was negative, lactate 0.9, in ER patient had a temp of 99.1?, all other vital signs were stable, patient's pain did not improve with 10 mg of diazepam 10 and 8 mg of morphine in the emergency room. Discharge Providers Provider Date of admission: 06/08/20 17:19 Discharge Date: 06/09/20 Primary care physician: Cierra Mensah MD Consults: 06/08/20 14:31 Consult to WATER QUALITY ANALYST - Staff Development Nurse Stat Comment: WATER QUALITY ANALYST Consult: [facility] Res Need 06/08/20 15:37 Consult to Physical Therapy Evaluate & Treat Comment: back pain, weakness Physician Instructions: Evaluate and Treat 06/08/20 19:37 Consult to Discharge Planning Routine Comment: Consult to Occupational Therapy Evaluate & Treat Comment: weakness Physician Instructions: Evaluate and treat 06/08/20 19:38 Consult to Physical Therapy Evaluate & Treat Comment: weakness Physician Instructions: Evaluate and Treat Discharge provider: Gunner Levi DO Summary Hospital Course Discharge Diagnosis: 1. Acute on chronic low back pain, present on admission 2. Hyperlipidemia, chronic, well controlled, present on admission 3. GERD, chronic, well controlled, present on admission 4. Depression, acute on chronic, well controlled, present on admission 5. History of CVA, chronic. Hospital Course: Dionicio Watts is a 74-year-old male with past medical history of prior CVA, hyperlipidemia, depression, GERD who was admitted for severe back pain after PT evaluation in the emergency room deemed him unsafe to go home. Imaging showed mild central canal stenosis and mild lumbar degenerative disease, CT of his abdomen pelvis did not reveal an intra-abdominal cause and hip x-ray did not reveal an acute fracture but mild degenerative arthritis of his bilate ral hips. The patient's symptoms improved with application of lidocaine patch and continuation Tylenol. He was deemed safe for discharge home after repeat evaluation by Physical therapy. He was discharged home with home health for continued physical therapy as an outpatient. Should patient's back pain continue he should follow up with Orthopedic surgery as an outpatient for further evaluation of his bilateral hip and lower lumbar degenerative Disease. Status at Discharge Overall status at discharge: patient is progressing back to baseline Exam Vital Signs (past 8 hours): - 06/09/20 05:00 06/09/20 05:24 06/09/20 08:00 Temperature 97.6 F 98.7 F Pulse Rate 89 85 Respiratory Rate 16 14 Blood Pressure 102/67 123/74 Pulse Oximetry 96 96 97 Oxygen Delivery Method Room Air Oxygen Flow Rate 0 Narrative Exam Narrative: General: WDWN appearing male, no acute distress, sitting upright in beside chair, legs up. head: hairpiece, 3 surgical sites on head, well healing, no erythema, redness, or induration. Back: paraspinal tenderness, lidocaine patch in place. Abd: soft, non-distended CV: RRR Pulm: no acute respiratory distress, no wheezing. Ext: mild tenderness with dorsiflexion against resistance. Neuro: +5/5 motor strength in UE and LE bilaterally, LLE weaker compared to right, chronic. Objective Labs Result Diagrams: 06/09/20 05:04 06/09/20 05:04 Labs: Laboratory Results - last 24 hr 06/08/20 06/08/20 06/08/20 10:45 10:45 10:45 WBC RBC Hgb Hct MCV MCH MCHC RDW Plt Count Neut % (Auto) Lymph % (Auto) [place] % (Auto) Eos % (Auto) Baso % (Auto) Neut # (Auto) Lymph # (Auto) [place] # (Auto) Eos # (Auto) Baso # (Auto) ESR Sodium Potassium Chloride Carbon Dioxide BUN Creatinine Estimated GFR BUN/Creatinine Ratio Glucose Hemoglobin A1c 6.2 H Calcium Magnesium C-Reactive Protein NT-Pro-B Natriuret Pep 160 H Triglycerides Cholesterol LDL Cholesterol, Calc HDL Cholesterol Procalcitonin < 0.05 Urine Color Urine Appearance Urine pH Ur Specific [place] Urine Protein Urine Glucose (UA) Urine Ketones Urine Occult Blood Urine Nitrate Urine Bilirubin Urine Urobilinogen Ur Leukocyte Esterase Urine RBC Urine WBC Ur Squamous Epith Cells Urine Bacteria Urine Mucus Ur Culture Indicated? 06/08/20 06/08/20 06/09/20 12:00 21:00 05:04 WBC 9.0 RBC 4.35 L Hgb 12.0 L Hct 36.4 L MCV 83.7 MCH 27.7 MCHC 33.1 RDW 15.7 H Plt Count 212 Neut % (Auto) 77.1 H Lymph % (Auto) 12.5 L Hamb[place] % (Auto) 9.8 Eos % (Auto) 0.4 L Baso % (Auto) 0.2 Neut # (Auto) 7000 Lymph # (Auto) 1100 Hamblen # (Auto) 900 Eos # (Auto) 0 Baso # (Auto) 0 ESR Sodium Potassium Chloride Carbon Dioxide BUN Creatinine Estimated GFR BUN/Creatinine Ratio Glucose Hemoglobin A1c Calcium Magnesium C-Reactive Protein NT-Pro-B Natriuret Pep Triglycerides Cholesterol LDL Cholesterol, Calc HDL Cholesterol Procalcitonin Urine Color Yellow Urine Appearance Clear Urine pH 6.5 Ur Specific [place] 1.015 Urine Protein Trace H Urine Glucose (UA) Negative Urine Ketones Trace H Urine Occult Blood 3+ H Urine Nitrate Negative Urine Bilirubin Negative Urine Urobilinogen 0.2 Ur Leukocyte Esterase Negative Urine RBC 5-10/hpf H 10-30/hpf H Urine WBC None seen 0-1/hpf Ur Squamous Epith Cells 0-1 /hpf Urine Bacteria None seen Occasional (0-1) Urine Mucus 2+ H Ur Culture Indicated? Cult not indicated Cult not indicated 06/09/20 06/09/20 06/09/20 05:04 05:04 05:04 WBC RBC Hgb Hct MCV MCH MCHC RDW Plt Count Neut % (Auto) Lymph % (Auto) [place] % (Auto) Eos % (Auto) Baso % (Auto) Neut # (Auto) Lymph # (Auto) [place] # (Auto) Eos # (Auto) Baso # (Auto) ESR 21 H Sodium 139 Potassium 3.5 Chloride 107 Carbon Dioxide 26 BUN 15 Creatinine 0.81 Estimated GFR > 60.0 BUN/Creatinine Ratio 18.5 Glucose 98 Hemoglobin A1c Calcium 8.9 Magnesium 2.0 C-Reactive Protein 13.3 H NT-Pro-B Natriuret Pep Triglycerides 68 Cholesterol 108 L LDL Cholesterol, Calc 44 HDL Cholesterol 50 Procalcitonin Urine Color Urine Appearance Urine pH Ur Specific [place] Urine Protein Urine Glucose (UA) Urine Ketones Urine Occult Blood Urine Nitrate Urine Bilirubin Urine Urobilinogen Ur Leukocyte Esterase Urine RBC Urine WBC Ur Squamous Epith Cells Urine Bacteria Urine Mucus Ur Culture Indicated? [facility] Medical History CVA (cerebral vascular accident) (1992) Depression GERD (gastroesophageal reflux disease) Hyperlipidemia Low back pain RCA occlusion Renal cyst, right Seizures Surgical History (Updated 06/08/20 @ 20:47 by SASHA Ferro) History of skin surgery History of vasectomy Status post appendectomy Family History (Updated 06/08/20 @ 20:51 by SASHA Ferro) Father Heart attack Mother No problems noted. Brother No problems noted. Brother No problems noted. Sister No problems noted. Social History marital status: household members: none lives independently: Yes caregiver/support person: No Smoking Status: Current some day smoker second hand exposure: No alcohol intake: never substance use type: does not use Discharge Plan Discharge Plan Patient Disposition: Home Health Service Provider Discharge Comment: You were admitted to the hospital with low back pain. This improved with lidocaine patches. Please continue to take tylenol and motrin as needed, and lidocaine patch has been prescribed. Recommend physical therapy as an outpatient, please follow up with your PMD as soon as possible for further evaluation. Discharge orders & Medications Prescriptions: New acetaminophen 325 mg Tablet 650 mg PO Q6HR 7 Days Qty: 30 RF: 0 lidocaine 5 % Adhesive Patch,Medicated 1 ea topical DAILY 7 Days Qty: 7 RF: 0 methocarbamol 750 mg tablet 750 mg PO QID PRN (Reason: Muscle Spasm) 7 Days Qty: 20 RF: 0 Continued (DME) Disabled Parking Permit Qty: 1 RF: 0 atorvastatin 80 mg tablet 80 mg PO DAILY RF: 0 finasteride 5 mg tablet 5 mg PO DAILY RF: 0 aspirin 325 mg Tablet 425 mg PO DAILY RF: 0 lisinopril 40 mg Tablet 40 mg PO DAILY RF: 0 niacin [Slo-Niacin] 500 mg Tablet Extended Release 500 mg PO BEDTIME RF: 0 trazodone 50 mg Tablet 50 mg PO BEDTIME RF: 0 sertraline 100 mg tablet 100 mg PO DAILY RF: 0 esomeprazole magnesium [Nexium] 40 mg Capsule,Delayed Release(Dr/Ec) 40 mg PO DAILY RF: 0 Follow up/Referrals: Cierra Mensah MD [Primary Care Provider] - Diet/Activity/Treatments Diet: Diet as Tolerated Activity: As tolerated Visit Report/Discharge Packet Instructions: Non-Medication Pain Relief, Help for Hip Pain, How to Prevent Falls, Methocarbamol Discharge Data Primary Care Provider: Cierra Mensah Attending Provider: Gunner Levi VTE Deep Vein Thrombosis/Pulmonary Embolism Present on Admission: No
--- NOTE | 2020-06-09 13:29 | OT.IPNOTE ---
Approached pt for OT eval . Pt states going home and does not want any OT services as feels that he is back to baseline as now his back pain is controlled. Pt states has family close by to assist as needed. Therefore discharge OT eval orders.
--- NOTE | 2020-06-09 15:07 | CM.IDA ---
Initial DCP Assessment Note Patient is a 74 yo male, resident of [facility] in [place]. Patient admitted observation for increasing weakness, back, hip and groin pain. According to Dr Levi, lidocaine patch has been applied w/good result, patient feeling much better and would like to return home. PCP: Cierra Mensah Payer: Earlene HERNANDEZ Met w/patient to introduce role and review DCP; PT recommending SNF vs Home w/ HH. Patient explains he lives alone and will return to his apt at [facility] today, he refuses SNF and HH at this time, does not think he needs, states he will be transported home by his brother. Updated RANDY Douglas. Plan: DC home to apt via private vehicle, family cannot stay the night at [facility], patient refuses home health at this time JW
== END 2020-06-09 13:45 | disposition home health service (06) ==
LOC: ED 17:19 → AC 17:20
PROVIDERS: Nurse Practitioner Family; Admitting Provider Internal Medicine; Emergency Provider Emergency Medicine; PCP Internal Medicine; Visit Provider Internal Medicine
DX: R53.1 Weakness (principal); M54.5 Low back pain; E78.5 Hyperlipidemia, unspecified; K21.9 Gastro-esophageal reflux disease without esophagitis; F32.9 Major depressive disorder, single episode, unspecified; Z86.73 Personal history of transient ischemic attack (TIA), and cerebral infarction without residual deficits; Z01.812 Encounter for preprocedural laboratory examination; Z20.828 Contact with and (suspected) exposure to other viral communicable diseases
CPT/HCPCS: 36415; 71045; 72128; 72131; 73502; 74178; 80048; 80053; 80061; 81001; 81003; 81015; 82550; 82553; 82962; 83036; 83605; 83735; 83880; 84145; 84484; 85025; 85610; 85651; 85730; 86140; 87040; 87635; 93005; 93010; 96361; 96372; 96374; 96376; 97116; 97162; 97530; 99284; G0378; J1650; J2270; Q9967

== ENCOUNTER 2020-06-18 01:46 | Observation (INO) | payer OTHER, SELFPAY ==
[2020-06-08 18:29] VITALS: BMI 23.4
[2020-06-18] VITALS (9 sets, daily range): BP systolic 112–163; BP diastolic 68–86; PULSE 74–91; RESP 16–21; TEMP 36.5–38; O2SAT 93–97; BMI 22.8
--- NOTE | 2020-06-18 01:55 | DI.RAD.S_ITS ---
PROCEDURE: XR CHEST 1V INDICATIONS: fever TECHNIQUE: One view of the chest was acquired. COMPARISON: [facility], CT, CT THORACIC SPINE WO CON, 06/08/2020, 11:54. [facility], CR, XR CHEST 1V, 06/08/2020, 10:33. FINDINGS: Surgical changes and devices: None. Lungs and pleura: Lungs are clear. No pleural effusions or pneumothorax. Mediastinum: Mediastinal contours appear normal. Heart size is normal. Bones and chest wall: No suspicious bony lesions. Overlying soft tissues appear unremarkable. IMPRESSION: Portable chest within normal limits. Note: No significant discrepancy from the preliminary report. Dictated by: Joao Paz M.D. on 06/18/2020 at 7:45 Approved by: Joao Paz M.D. on 06/18/2020 at 7:46
--- NOTE | 2020-06-18 02:04 | ED_ITS ---
HPI - Weakness General Chief complaint: Weakness Stated complaint: General Weakness Time Seen by Provider: 06/18/20 01:53 Source: patient and EMS Mode of arrival: EMS Limitations: no limitations History of Present Illness HPI Narrative: Patient is a 74-year-old male who presents with generalized weakness and fever. He admitted June 08 is 73 with weakness. He has been complaining of back pain ongoing however his pain was relieved improved with Lidoderm patch. Today he says he is usually able to get up off from his couch and he was unable to do so. Medics were called and the found to have a fever of 101 and currently is febrile of 100.4 in the ED. He denies any symptoms of a his generalized weakness in back pain although he is incontinent of urine as well. He denies any chest pain or cough. MD Complaint: generalized weakness Related Data Home Medications Medication Instructions Recorded Confirmed atorvastatin 80 mg tablet 80 mg PO DAILY 03/25/18 06/08/20 finasteride 5 mg tablet 5 mg PO DAILY 03/25/18 05/13/19 aspirin 425 mg PO DAILY 05/13/19 06/08/20 lisinopril 40 mg PO DAILY 05/13/19 06/08/20 niacin [Slo-Niacin] 500 mg PO BEDTIME 05/13/19 06/08/20 sertraline 100 mg PO DAILY 05/13/19 06/08/20 trazodone 50 mg PO BEDTIME 05/13/19 06/08/20 esomeprazole magnesium [Nexium] 40 mg PO DAILY 06/08/20 06/08/20 Previous Rx's Medication Instructions Recorded Disabled Parking Permit #1 [id number] 05/26/19 Allergies Allergy/AdvReac Type Severity Reaction Status Date / Time No Known Drug Allergies Allergy Verified 06/08/20 10:11 Review of Systems Review of Systems ROS Unobtainable: All systems reviewed & are unremarkable except as noted in HPI and below Constitutional Constitutional: Reports as per HPI, Reports fever(s) and Denies frequent falls Eyes Eyes: Denies change in vision, Denies eye discharge, Denies irritation and Denies loss of vision ENT Ears, Nose, Mouth, and Throat: Denies change in voice, Denies neck pain and Denies sore throat Cardiovascular Cardiovascular: Denies chest pain, Denies syncope, Denies irregular heart rhythm, Denies lightheadedness, Denies palpitations, Denies dyspnea, Denies dyspnea on exertion and Denies orthopnea Respiratory Respiratory: Denies cough, Denies dyspnea, Denies dyspnea on exertion and Denies wheezing Gastrointestinal Gastrointestinal: Denies abdominal pain, Denies change in bowel habits, Denies diarrhea, Denies nausea and Denies vomiting Musculoskeletal Musculoskeletal: Reports system reviewed and no additional complaints, except as documented, Reports back pain, Denies deformity and Denies neck pain Integumentary/Breasts Skin/Breast: Denies pruritus, Denies erythema, Denies rash and Denies wounds Neurologic Neurologic: Denies dizziness, Denies syncope, Denies frequent falls and Denies loss of vision Endocrine Endocrine: Denies palpitations Allergic/Immunologic Allergic/Immunologic: Denies wheezing Patient History Medical History CVA (cerebral vascular accident) (1992) Depression GERD (gastroesophageal reflux disease) Hyperlipidemia Low back pain RCA occlusion Renal cyst, right Seizures Surgical History History of skin surgery History of vasectomy Status post appendectomy Family History Father Heart attack Mother No problems noted. Brother No problems noted. Brother No problems noted. Sister No problems noted. Social History marital status: household members: none lives independently: Yes caregiver/support person: No Smoking Status: Former smoker second hand exposure: No alcohol intake: never substance use type: does not use Smoking Status: Current some day smoker alcohol intake frequency: holidays/special occasions only Substance Use Type: does not use Exam Initial Vital Signs Initial Vital Signs: Vital Signs Temperature 100.4 F H 06/18/20 02:00 Pulse Rate 91 H 06/18/20 02:00 Respiratory Rate 21 06/18/20 02:00 Blood Pressure 135/68 06/18/20 02:00 Pulse Oximetry 95 06/18/20 02:00 GENERAL: Alert 74-year-old male and in no acute distress. HEENT: Head atraumatic,EOMI, pupils reactive, face symmetric, moist mucous membranes CARDIOVASCULAR: Regular rate and rhythm without murmurs, rubs or gallops. RESPIRATORY: Breath sounds equal bilaterally, no wheezes rales or rhonchi. ABDOMEN: Soft, nontender. Normoactive bowel sounds all 4 quadrants. No guarding or rebound. EXTREMITIES: Normal range of motion, no clubbing or edema. Neurovascularly intact NEUROLOGICAL: Alert and oriented x4.Normal gait and speech. 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 Course Orders Ordered: ED Orders 06/18/20 01:51 COVID19 Stat 06/18/20 01:55 XR chest 1V Stat EKG-12 Lead Stat 06/18/20 02:15 Complete Blood Count AUTO DIFF Stat Comprehensive Metabolic Panel Stat Lactate (Lactic Acid) Stat Procalcitonin Stat Troponin & CK Cardiac Panel Stat 06/18/20 02:25 Urinalysis and Microscopic Stat 06/18/20 02:45 Blood Culture Stat 06/18/20 03:26 US abdomen limited Stat 06/18/20 03:40 Respiratory Panel (Film Array) Stat Acetaminophen (Acetaminophen 325 Mg Tablet) 650 mg PO Q6HR PRN PRN Reason: Fever/Mild Pain (1-3) Bisacodyl (Bisacodyl 10 Mg Supp) 10 mg OR DAILY PRN PRN Reason: Constipation Docusate Sodium (Docusate 100 Mg Capsule) 100 mg PO BID KATHRYN Enoxaparin Sodium (Enoxaparin 40 Mg/0.4 Ml Syringe) 40 mg SUBCUT DAILY [facility] Potassium Chloride 40 meq/ (Sodium Chloride) 520 mls @ 130 mls/hr IV NOW ONE Stop: 06/18/20 09:12 Last Admin: 06/18/20 06:33 Dose: 130 mls/hr Documented by: DAVE Cosigned by: VALERY Lidocaine (Lidocaine Patch 1 Each Adh..Patch) 1 each TOP DAILY [facility] Naloxone HCl (Naloxone 0.4 Mg/Ml Vial) 0.2 mg IV Q2MIN PRN PRN Reason: Opiate Reversal Ondansetron HCl (Ondansetron 4 Mg/2 Ml Inj) 4 mg IV Q8HR PRN PRN Reason: Nausea And Vomiting Discontinued Medications Acetaminophen (Acetaminophen 325 Mg Tablet) 650 mg PO NOW ONE Stop: 06/18/20 02:18 Last Admin: 12/26/20 02:20 Dose: 650 mg Documented by: LENA Potassium Chloride (Potassium Chloride 20 Meq/15 Ml Udc) 40 meq PO NOW ONE Stop: 06/18/20 04:30 Last Admin: 06/18/20 04:42 Dose: 40 meq Documented by: LENA Vital Signs Vital signs: Vital Signs - 8 hr 06/18/20 02:00 06/18/20 04:32 Temperature 100.4 F H 98.1 F Pulse Rate 91 H Respiratory Rate 21 Blood Pressure 135/68 Pulse Oximetry 95 MDM - Weakness Lab Data Attestation: I reviewed the patient's lab results. Result diagrams: 06/18/20 02:15 06/18/20 02:15 Labs: Lab Results 06/18/20 06/18/20 06/18/20 Range/Units 01:51 02:15 02:15 WBC 12.3 H (4.5-11.0) X10^3/uL RBC 4.72 (4.5-5.9) X10^6/uL Hgb 12.6 L (13.5-17.5) g/dL Hct 39.2 L (41-53) % MCV 83.0 (80-100) fL MCH 26.7 (26-34) PG MCHC 32.2 (30-36) % RDW 15.4 H (11.6-14.8) % Plt Count 292 (150-400) X10^3/uL Neut % (Auto) 87.9 H (50-75) % Lymph % (Auto) 4.5 L (25-40) % Stephens % (Auto) 6.7 (3-14) % Eos % (Auto) 0.4 L (2-4) % Baso % (Auto) 0.5 (0-2) % Neut # (Auto) 51055 H (6099-0039) /uL Lymph # (Auto) 600 L (7582-8482) /uL Stephens # (Auto) 800 (0-900) /uL Eos # (Auto) 100 (0-450) /uL Baso # (Auto) 100 (0-100) /uL ESR (0-15) MM/HR Sodium (137-145) mmol/L Potassium (3.4-5.1) mmol/L Chloride (98-107) mmol/L Carbon Dioxide (22-32) mmol/L BUN (9-20) mg/dL Creatinine (0.66-1.25) mg/dL Estimated GFR (>60) mL/min BUN/Creatinine Ratio (6-22) Glucose (80-110) mg/dL Lactate (0.7-2.1) mmol/L Calcium (8.4-10.2) mg/dL Total Bilirubin (0.2-1.3) mg/dL AST (17-59) IU/L ALT (<50) IU/L Alkaline Phosphatase (38-126) U/L Total Creatine Kinase 35 L D (55-170) U/L CK-MB (CK-2) TNP CK-MB (CK-2) Rel Index TNP Troponin I < 0.012 (0.01-0.034) ng/mL C-Reactive Protein (<1.0) mg/dL Total Protein (6.3-8.2) g/dL Albumin (3.5-5.0) g/dL Globulin (1.7-4.1) g/dL Albumin/Globulin Ratio (1.0-2.8) Procalcitonin (<0.5) ng/mL Urine Color Urine Appearance Urine pH (4.5-8.0) Ur Specific Okay (1.000-1.035) Urine Protein (Negative) Urine Glucose (UA) (Negative) g/dL Urine Ketones (NEGATIVE) Urine Occult Blood (Negative) Urine Nitrate (Negative) Urine Bilirubin (NEGATIVE) Urine Urobilinogen (0.2) E.U./dL Ur Leukocyte Esterase (NEGATIVE) Urine RBC (0-5/HPF) Urine WBC (0-5/HPF) Ur Squamous Epith Cells (0-5/HPF) Urine Bacteria (None) Hyaline Casts (None) Ur Culture Indicated? Acetaminophen (10-30) ug/mL Chlamy pneumoniae PCR (Not Detect) Adenovirus (PCR) (Not Detect) B.parapertussis DNA PCR (Not Detect) Coronavirus OC43 (PCR) (Not Detect) Coronavirus HKU1 (PCR) (Not Detect) Coronavirus 229E (PCR) (Not Detect) COVID-19 PCR Negative (Negative) Coronavirus NL63 (PCR) (Not Detect) Human Metapneumovir PCR (Not Detect) Influenza Type A (PCR) (Not Detect) Influenza Type B (PCR) (Not Detect) M. pneumoniae (PCR) (Not Detect) Parainfluenza 1 (PCR) (Not Detect) Parainfluenza 2 (PCR) (Not Detect) Parainfluenza 3 (PCR) (Not Detect) Parainfluenza 4 (PCR) (Not Detect) RSV (PCR) (Not Detect) Entero/Rhino (PCR) (Not Detect) 06/18/20 06/18/20 06/18/20 Range/Units 02:15 02:15 02:15 WBC (4.5-11.0) X10^3/uL RBC (4.5-5.9) X10^6/uL Hgb (13.5-17.5) g/dL Hct (41-53) % MCV (80-100) fL MCH (26-34) PG MCHC (30-36) % RDW (11.6-14.8) % Plt Count (150-400) X10^3/uL Neut % (Auto) (50-75) % Lymph % (Auto) (25-40) % Stephens % (Auto) (3-14) % Eos % (Auto) (2-4) % Baso % (Auto) (0-2) % Neut # (Auto) (5749-1079) /uL Lymph # (Auto) (9988-7571) /uL Stephens # (Auto) (0-900) /uL Eos # (Auto) (0-450) /uL Baso # (Auto) (0-100) /uL ESR (0-15) MM/HR Sodium 136 L (137-145) mmol/L Potassium 2.9 L (3.4-5.1) mmol/L Chloride 95 L (98-107) mmol/L Carbon Dioxide 37 H (22-32) mmol/L BUN 15 (9-20) mg/dL Creatinine 1.01 (0.66-1.25) mg/dL Estimated GFR > 60.0 (>60) mL/min BUN/Creatinine Ratio 14.9 (6-22) Glucose 144 H (80-110) mg/dL Lactate 1.2 (0.7-2.1) mmol/L Calcium 9.3 (8.4-10.2) mg/dL Total Bilirubin 0.6 (0.2-1.3) mg/dL AST 128 H (17-59) IU/L ALT 126 H (<50) IU/L Alkaline Phosphatase 95 (38-126) U/L Total Creatine Kinase (55-170) U/L CK-MB (CK-2) CK-MB (CK-2) Rel Index Troponin I (0.01-0.034) ng/mL C-Reactive Protein (<1.0) mg/dL Total Protein 7.2 (6.3-8.2) g/dL Albumin 3.6 (3.5-5.0) g/dL Globulin 3.6 (1.7-4.1) g/dL Albumin/Globulin Ratio 1.0 (1.0-2.8) Procalcitonin 0.16 (<0.5) ng/mL Urine Color Urine Appearance Urine pH (4.5-8.0) Ur Specific Okay (1.000-1.035) Urine Protein (Negative) Urine Glucose (UA) (Negative) g/dL Urine Ketones (NEGATIVE) Urine Occult Blood (Negative) Urine Nitrate (Negative) Urine Bilirubin (NEGATIVE) Urine Urobilinogen (0.2) E.U./dL Ur Leukocyte Esterase (NEGATIVE) Urine RBC (0-5/HPF) Urine WBC (0-5/HPF) Ur Squamous Epith Cells (0-5/HPF) Urine Bacteria (None) Hyaline Casts (None) Ur Culture Indicated? Acetaminophen (10-30) ug/mL Chlamy pneumoniae PCR (Not Detect) Adenovirus (PCR) (Not Detect) B.parapertussis DNA PCR (Not Detect) Coronavirus OC43 (PCR) (Not Detect) Coronavirus HKU1 (PCR) (Not Detect) Coronavirus 229E (PCR) (Not Detect) COVID-19 PCR (Negative) Coronavirus NL63 (PCR) (Not Detect) Human Metapneumovir PCR (Not Detect) Influenza Type A (PCR) (Not Detect) Influenza Type B (PCR) (Not Detect) M. pneumoniae (PCR) (Not Detect) Parainfluenza 1 (PCR) (Not Detect) Parainfluenza 2 (PCR) (Not Detect) Parainfluenza 3 (PCR) (Not Detect) Parainfluenza 4 (PCR) (Not Detect) RSV (PCR) (Not Detect) Entero/Rhino (PCR) (Not Detect) 06/18/20 06/18/20 06/18/20 Range/Units 02:15 02:15 02:15 WBC (4.5-11.0) X10^3/uL RBC (4.5-5.9) X10^6/uL Hgb (13.5-17.5) g/dL Hct (41-53) % MCV (80-100) fL MCH (26-34) PG MCHC (30-36) % RDW (11.6-14.8) % Plt Count (150-400) X10^3/uL Neut % (Auto) (50-75) % Lymph % (Auto) (25-40) % Stephens % (Auto) (3-14) % Eos % (Auto) (2-4) % Baso % (Auto) (0-2) % Neut # (Auto) (2654-2752) /uL Lymph # (Auto) (5700-0406) /uL Stephens # (Auto) (0-900) /uL Eos # (Auto) (0-450) /uL Baso # (Auto) (0-100) /uL ESR 56 H (0-15) MM/HR Sodium (137-145) mmol/L Potassium (3.4-5.1) mmol/L Chloride (98-107) mmol/L Carbon Dioxide (22-32) mmol/L BUN (9-20) mg/dL Creatinine (0.66-1.25) mg/dL Estimated GFR (>60) mL/min BUN/Creatinine Ratio (6-22) Glucose (80-110) mg/dL Lactate (0.7-2.1) mmol/L Calcium (8.4-10.2) mg/dL Total Bilirubin (0.2-1.3) mg/dL AST (17-59) IU/L ALT (<50) IU/L Alkaline Phosphatase (38-126) U/L Total Creatine Kinase (55-170) U/L CK-MB (CK-2) CK-MB (CK-2) Rel Index Troponin I (0.01-0.034) ng/mL C-Reactive Protein 21.2 H (<1.0) mg/dL Total Protein (6.3-8.2) g/dL Albumin (3.5-5.0) g/dL Globulin (1.7-4.1) g/dL Albumin/Globulin Ratio (1.0-2.8) Procalcitonin (<0.5) ng/mL Urine Color Urine Appearance Urine pH (4.5-8.0) Ur Specific Okay (1.000-1.035) Urine Protein (Negative) Urine Glucose (UA) (Negative) g/dL Urine Ketones (NEGATIVE) Urine Occult Blood (Negative) Urine Nitrate (Negative) Urine Bilirubin (NEGATIVE) Urine Urobilinogen (0.2) E.U./dL Ur Leukocyte Esterase (NEGATIVE) Urine RBC (0-5/HPF) Urine WBC (0-5/HPF) Ur Squamous Epith Cells (0-5/HPF) Urine Bacteria (None) Hyaline Casts (None) Ur Culture Indicated? Acetaminophen < 10 L (10-30) ug/mL Chlamy pneumoniae PCR (Not Detect) Adenovirus (PCR) (Not Detect) B.parapertussis DNA PCR (Not Detect) Coronavirus OC43 (PCR) (Not Detect) Coronavirus HKU1 (PCR) (Not Detect) Coronavirus 229E (PCR) (Not Detect) COVID-19 PCR (Negative) Coronavirus NL63 (PCR) (Not Detect) Human Metapneumovir PCR (Not Detect) Influenza Type A (PCR) (Not Detect) Influenza Type B (PCR) (Not Detect) M. pneumoniae (PCR) (Not Detect) Parainfluenza 1 (PCR) (Not Detect) Parainfluenza 2 (PCR) (Not Detect) Parainfluenza 3 (PCR) (Not Detect) Parainfluenza 4 (PCR) (Not Detect) RSV (PCR) (Not Detect) Entero/Rhino (PCR) (Not Detect) 06/18/20 06/18/20 Range/Units 02:25 03:40 WBC (4.5-11.0) X10^3/uL RBC (4.5-5.9) X10^6/uL Hgb (13.5-17.5) g/dL Hct (41-53) % MCV (80-100) fL MCH (26-34) PG MCHC (30-36) % RDW (11.6-14.8) % Plt Count (150-400) X10^3/uL Neut % (Auto) (50-75) % Lymph % (Auto) (25-40) % Stephens % (Auto) (3-14) % Eos % (Auto) (2-4) % Baso % (Auto) (0-2) % Neut # (Auto) (0097-8915) /uL Lymph # (Auto) (1685-9103) /uL Stephens # (Auto) (0-900) /uL Eos # (Auto) (0-450) /uL Baso # (Auto) (0-100) /uL ESR (0-15) MM/HR Sodium (137-145) mmol/L Potassium (3.4-5.1) mmol/L Chloride (98-107) mmol/L Carbon Dioxide (22-32) mmol/L BUN (9-20) mg/dL Creatinine (0.66-1.25) mg/dL Estimated GFR (>60) mL/min BUN/Creatinine Ratio (6-22) Glucose (80-110) mg/dL Lactate (0.7-2.1) mmol/L Calcium (8.4-10.2) mg/dL Total Bilirubin (0.2-1.3) mg/dL AST (17-59) IU/L ALT (<50) IU/L Alkaline Phosphatase (38-126) U/L Total Creatine Kinase (55-170) U/L CK-MB (CK-2) CK-MB (CK-2) Rel Index Troponin I (0.01-0.034) ng/mL C-Reactive Protein (<1.0) mg/dL Total Protein (6.3-8.2) g/dL Albumin (3.5-5.0) g/dL Globulin (1.7-4.1) g/dL Albumin/Globulin Ratio (1.0-2.8) Procalcitonin (<0.5) ng/mL Urine Color Yellow Urine Appearance Clear Urine pH 7.0 (4.5-8.0) Ur Specific Okay 1.010 (1.000-1.035) Urine Protein 1+ H (Negative) Urine Glucose (UA) Negative (Negative) g/dL Urine Ketones Negative (NEGATIVE) Urine Occult Blood 3+ H (Negative) Urine Nitrate Negative (Negative) Urine Bilirubin Negative (NEGATIVE) Urine Urobilinogen 0.2 (0.2) E.U./dL Ur Leukocyte Esterase Negative (NEGATIVE) Urine RBC 5-10/hpf H (0-5/HPF) Urine WBC None seen (0-5/HPF) Ur Squamous Epith Cells 0-1 /hpf (0-5/HPF) Urine Bacteria Occasional (0-1) (None) Hyaline Casts 0-1/lpf (None) Ur Culture Indicated? Cult not indicated Acetaminophen (10-30) ug/mL Chlamy pneumoniae PCR Not detected (Not Detect) Adenovirus (PCR) Not detected (Not Detect) B.parapertussis DNA PCR Not detected (Not Detect) Coronavirus OC43 (PCR) Not detected (Not Detect) Coronavirus HKU1 (PCR) Not detected (Not Detect) Coronavirus 229E (PCR) Not detected (Not Detect) COVID-19 PCR Not detected (Negative) Coronavirus NL63 (PCR) Not detected (Not Detect) Human Metapneumovir PCR Not detected (Not Detect) Influenza Type A (PCR) Not detected (Not Detect) Influenza Type B (PCR) Not detected (Not Detect) M. pneumoniae (PCR) Not detected (Not Detect) Parainfluenza 1 (PCR) Not detected (Not Detect) Parainfluenza 2 (PCR) Not detected (Not Detect) Parainfluenza 3 (PCR) Not detected (Not Detect) Parainfluenza 4 (PCR) Not detected (Not Detect) RSV (PCR) Not detected (Not Detect) Entero/Rhino (PCR) Not detected (Not Detect) Imaging Data US - abdomen: Radiologist Impression: Preliminary report Chest x-ray: Radiologist Impression: Possible slight scarring ECG Data Attestation: I personally reviewed and interpreted this ECG as follows: Prior ECG tracings: available for review Interpretation: Sinus rhythm artifact noted no ST changes Q-wave noted in lead 3 and AVF similar to previous EKG MDM Narrative Medical decision making narrative: Patient is overall weak. He has low-grade fever today with mild elevation of procalcitonin and liver enzymes. No obvious source of infection at this time respiratory panel is ordered. He has no right upper quadrant pain ultrasound is essentially negative. At this time unknown source. Back pain has been ongoing for a number of weeks. Sami DONG accepts for observation Discharge Plan Departure Patient Disposition: Admitted as Observation Clinical Impression: Acute hypokalemia Fever Qualifiers: Fever type: unspecified Qualified Code(s): R50.9 - Fever, unspecified Admit Date/Time: 06/18/20 04:37 Admit Provider: Gunner Cruz
[2020-06-18 02:18] LABS: COVID19 -Nasal RAPID Negative (Negative)
[2020-06-18] MEDS: ACETAMINOPHEN 325 MG TABLET 650 MG PO ×2 (02:20→23:21)
[2020-06-18 02:30] LABS: Add Manual Diff / Slide Review NO; Basophils Absolute Auto 100 /uL (0-100); Basophils Percent Auto 0.5 % (0-2); Eosinophils Absolute Auto 100 /uL (0-450); Eosinophils Percent Auto 0.4 % (2-4); Hematocrit 39.2 % (41-53); Hemoglobin 12.6 g/dL (13.5-17.5); Lymphocytes Absolute Auto 600 /uL (1100-4500); Lymphocytes Percent Auto 4.5 % (25-40); Mean Corpuscular HGB Conc 32.2 % (30-36); Mean Corpuscular Hemoglobin 26.7 PG (26-34); Monocytes Absolute Auto 800 /uL (0-900); Monocytes Percent Auto 6.7 % (3-14); Neutrophils Absolute Auto 10800 /uL (1500-7000); Neutrophils Percent Auto 87.9 % (50-75); Platelet Count 292 X10^3/uL (150-400); Red Blood Cell Count 4.72 X10^6/uL (4.5-5.9); Red Cell Distribution Width 15.4 % (11.6-14.8); White Blood Cell Count 12.3 X10^3/uL (4.5-11.0)
[2020-06-18 02:31] LABS: WBC Urine None Seen (0-5/HPF)
[2020-06-18 02:32] LABS: Appearance Urine UA CLEAR; Bilirubin Urine UA NEGATIVE (NEGATIVE); Color Urine UA YELLOW; Glucose Urine UA NEGATIVE (Negative); Ketones Urine UA NEGATIVE (NEGATIVE); Leukocyte Esterase Urine UA NEGATIVE (NEGATIVE); Nitrite Urine UA NEGATIVE (Negative); Occult Blood Urine UA 3+ (Negative); Protein Urine UA 1+ (Negative); Urobilinogen Urine UA 0.2 E.U./dL (0.2)
[2020-06-18 02:36] LABS: Creatine Kinase 35 U/L (55-170); Lactate (Lactic Acid) 1.2 mmol/L (0.7-2.1)
[2020-06-18 02:37] LABS: Alanine Aminotransferase 126 IU/L (<50); Albumin 3.6 g/dL (3.5-5.0); Alkaline Phosphatase 95 U/L (38-126); Aspartate Aminotransferase 128 IU/L (17-59); BUN Creatinine Ratio 14.9 (6-22); Bilirubin Total 0.6 mg/dL (0.2-1.3); Blood Urea Nitrogen 15 mg/dL (9-20); Calcium 9.3 mg/dL (8.4-10.2); Carbon Dioxide 37 mmol/L (22-32); Chloride 95 mmol/L (98-107); Estimated Glomerular Filt Rate > 60.0 mL/min (>60); Globulin 3.6 g/dL (1.7-4.1); Glucose 144 mg/dL (80-110); HEMOLYSIS < 15 (0-50); Potassium 2.9 mmol/L (3.4-5.1); Sodium 136 mmol/L (137-145); Total Protein 7.2 g/dL (6.3-8.2)
[2020-06-18 02:42] LABS: Bacteria Urine Occasional (0-1); Culture Indicated Urine Cult Not Indicated; Hyaline Casts Urine 0-1/LPF; RBC Urine 5-10/HPF (0-5/HPF); Squamous Epithelial Cell Urine 0-1 /HPF (0-5/HPF)
[2020-06-18 02:48] LABS: Troponin I < 0.012 ng/mL (0.01-0.034)
[2020-06-18 02:51] LABS: Procalcitonin 0.16 ng/mL (<0.5)
--- NOTE | 2020-06-18 03:26 | DI.US.S_ITS ---
PROCEDURE: US ABDOMEN LIMITED INDICATIONS: Right upper quadrant pain TECHNIQUE: Real-time focused scanning was performed of the abdomen, with image documentation. COMPARISON: [facility], CT, CT ABDOMEN PELVIS WO/W CON, 06/09/2020, 8:40. FINDINGS: The liver is normal in size and demonstrates no focal lesions. No findings of gallstones or sludge are seen. The gallbladder wall is not thickened, measuring 3 mm or less. No specific pericholecystic fluid is seen. The sonographic Bhakta sign is negative. There is no biliary dilatation, the common bile duct measures 3 mm. No significant pancreatic abnormality is seen on these images. IMPRESSION: The gallbladder demonstrates a normal sonographic appearance. No biliary dilatation is seen. Note: No significant discrepancy from the preliminary report. Dictated by: Joao Paz M.D. on 06/18/2020 at 7:51 Approved by: Joao Paz M.D. on 06/18/2020 at 7:52
[2020-06-18] MEDS: POTASSIUM CHLORIDE 20 MEQ/15 ML UDC 40 MEQ PO (04:42)
[2020-06-18 04:43] LABS: Adenovirus Not Detected (Not Detect); Bordetella pertussis Not Detected (Not Detect); Chlamydophila pneumoniae Not Detected (Not Detect); Coronavirus 229E Not Detected (Not Detect); Coronavirus HKU1 Not Detected (Not Detect); Coronavirus NL 63 Not Detected (Not Detect); Coronavirus OC43 Not Detected (Not Detect); Human Metapneumovirus Not Detected (Not Detect); Human Rhinovirus/Enterovirus Not Detected (Not Detect); Influenza A Not Detected (Not Detect); Influenza B Not Detected (Not Detect); Mycoplasma pneumoniae Not Detected (Not Detect); Parainfluenza Virus 1 Not Detected (Not Detect); Parainfluenza Virus 2 Not Detected (Not Detect); Parainfluenza Virus 3 Not Detected (Not Detect); Parainfluenza Virus 4 Not Detected (Not Detect); Respiratory Syncytial Virus Not Detected (Not Detect); SARS- CoV-2 Not Detected (Not Detecte)
--- NOTE | 2020-06-18 05:13 | PM.HP.1 ---
History of Present Illness History of Present Illness Date Patient Seen: 06/18/20 Time Patient Seen: 05:14 Chief complaint: General Weakness Narrative: Mr. Dionicio Watts is a 74-year-old male with past medical history significant for prior CVA (residual left arm weakness), hyperlipidemia, depression, GERD who presents to the ER via EMS with chief complaint generalized weakness. The patient reports he has had progressive weakness over the last few days and summoned EMS because he could not get up off his couch and reports right ankle pain since this morning. Per medics upon arrival patient had a temperature of 101? on seen. The patient is a difficult historian. He denies falls or trauma or change in medications since he was discharged from the hospital after being admitted for acute on chronic back pain on 06/08/2020 and discharged the following day with Lidoderm patches. The patient states he has had could pain management with patches. He states he has had no fevers or chills, no headaches or dizziness, nasal congestion or sore throat. He reports no chest pain or palpitations and denies shortness of breath cough or wheezing. He has no complaints of epigastric or abdominal, nausea or vomiting. He adds that he eats 1 meal a day and has poor appetite. Since discharge the patient has been seen by his chiropractor and he states he is now back in line. She also prescribed ?calm? which the patient states has magnesium in it which gave him diarrhea and has since stopped. The patient normally ambulates around his care facility with a cane. Upon arrival to the ER the patient's temperature 100.4?, heart rate 91, blood pressure 135/68, respiratory rate of 21 saturating 95% on room air. A chest x-ray obtained which shows only probable scarring and ultrasound of the abdomen finds no gallstones, a partially contracted gallbladder and no common bile duct dilation, sonographic negative Bhakta sign. On laboratory analysis the patient has an elevated white count of 12.3 with elevated neutrophils at 10,800, hemoglobin of 12.6, hematocrit of 39.2 and platelets of 292. He has a sodium of 136 with a potassium of 2.9 and appears alkalotic with a CO 37 and has a BUN of 15 and a creatinine of 1.01. He has a total bilirubin 0.6, elevated AST of 128, elevated ALT at 1:26 a.m. and alkaline phosphatase of 95. His albumin is 3.6. His lactic acid of 1.2, procalcitonin 0.16, a respiratory panel that is completely negative and a negative COVID screening. He has a total CK of 35 and troponin is less than 0.012. On urinalysis he is positive for RBCs and protein but negative for leukocyte esterase, nitrates or WBCs with few bacteria. The patient is admitted to the hospitalist service for generalized weakness, hypokalemia and is unable to return to his assisted living facility safely. Patient History Medical History CVA (cerebral vascular accident) (1992) Depression GERD (gastroesophageal reflux disease) Hyperlipidemia Low back pain RCA occlusion Renal cyst, right Seizures Surgical History History of skin surgery History of vasectomy Status post appendectomy Family & Social History Family History Father Heart attack Mother No problems noted. Brother No problems noted. Brother No problems noted. Sister No problems noted. Social History: household members none lives independently Yes caregiver/support person No Safety & Behavioral: Feels Safe in Current Yes Environment Tobacco & Substance use: Tobacco type cigars Smoking Status Current some day smoker alcohol intake never alcohol intake frequency holiday/special occasion Substance Use Type does not use Meds Home Medications and Allergies Home Medications Medication Instructions Recorded Confirmed Type atorvastatin 80 mg tablet 80 mg PO DAILY 03/25/18 06/08/20 History finasteride 5 mg tablet 5 mg PO DAILY 03/25/18 05/13/19 History aspirin 425 mg PO DAILY 05/13/19 06/08/20 History lisinopril 40 mg PO DAILY 05/13/19 06/08/20 History niacin [Slo-Niacin] 500 mg PO BEDTIME 05/13/19 06/08/20 History sertraline 100 mg PO DAILY 05/13/19 06/08/20 History trazodone 50 mg PO BEDTIME 05/13/19 06/08/20 History Disabled Parking Permit #1 ea 05/26/19 Rx esomeprazole magnesium [Nexium] 40 mg PO DAILY 06/08/20 06/08/20 History Allergies Allergy/AdvReac Type Severity Reaction Status Date / Time No Known Drug Allergies Allergy Verified 06/08/20 10:11 Review of Systems Review of Systems ROS: Yes All systems reviewed with the patient and are negative except as otherwise documented Exam Vital Signs (past 8 hours): - 06/18/20 02:00 06/18/20 04:32 06/18/20 05:00 Temperature 100.4 F H 98.1 F 98.4 F Pulse Rate 91 H 86 Respiratory Rate 21 18 Blood Pressure 135/68 132/79 Pulse Oximetry 95 96 Oxygen Delivery Method Room Air Oxygen Flow Rate 0 Narrative Exam Narrative: GENERAL APPEARANCE: well developed, adequately nourished, who is lying supine in bed alert and conversant in no acute distress HEENT: Atraumatic, the patient has a hair piece in place, no ptosis, PERRLA, sclera is anicteric, EOMs intact without nystagmus, no sinus tenderness to percussion, no rhinorrhea, mucous membranes are moist and pink without lesions or exudate. NECK/THYROID: neck supple, no JVD, no carotid bruit, no thyromegaly, trachea midline. LYMPH NODES: no cervical or supraclavicular lymphadenopathy. SKIN: [place], warm and dry, no visible lesions, rashes or cellulitic changes HEART: regular rate and rhythm, S1-S2, no murmur, no rubs or gallops, brisk capillary refill, trace right lower extremity edema LUNGS: clear to auscultation bilaterally, no coarseness crackles or wheezing, no cough present CHEST: Symmetrical movement, no accessory muscle use, good tidal volume. ABDOMEN: Soft, no distention, no abdominal tenderness, no guarding or peritoneal signs, no organomegaly, no flank or suprapubic tenderness, active bowel tones. BACK: Lumbar spine pain without palpable muscle spasms, Normal curvature, nontender to palpation, no CVA tenderness on percussion EXTREMITIES: Decreased range of motion left arm post CVA with spasticity and muscle wasting, mild swelling without warmth or erythema right ankle without evidence of effusion, pain on palpation anterior medial and lateral right ankle, spasticity left leg, back pain with elevation right leg, strength is 3-4/5. NEUROLOGIC: AAO x4, left-sided motor deficits, cranial nerves II-XII grossly intact, sensation intact to light touch, hearing grossly normal to speech. PSYCH: Fair tension having to repeat questions to obtain a response, cooperative and follows commands, stable behavior. Objective Labs Result Diagrams: 06/18/20 02:15 06/18/20 02:15 Labs: Laboratory Results - last 24 hr 06/18/20 06/18/20 06/18/20 01:51 02:15 02:15 WBC 12.3 H RBC 4.72 Hgb 12.6 L Hct 39.2 L MCV 83.0 MCH 26.7 MCHC 32.2 RDW 15.4 H Plt Count 292 Neut % (Auto) 87.9 H Lymph % (Auto) 4.5 L Castro % (Auto) 6.7 Eos % (Auto) 0.4 L Baso % (Auto) 0.5 Neut # (Auto) 54108 H Lymph # (Auto) 600 L Castro # (Auto) 800 Eos # (Auto) 100 Baso # (Auto) 100 Sodium Potassium Chloride Carbon Dioxide BUN Creatinine Estimated GFR BUN/Creatinine Ratio Glucose Lactate Calcium Total Bilirubin AST ALT Alkaline Phosphatase Total Creatine Kinase 35 L D CK-MB (CK-2) TNP CK-MB (CK-2) Rel Index TNP Troponin I < 0.012 Total Protein Albumin Globulin Albumin/Globulin Ratio Procalcitonin Urine Color Urine Appearance Urine pH Ur Specific [place] Urine Protein Urine Glucose (UA) Urine Ketones Urine Occult Blood Urine Nitrate Urine Bilirubin Urine Urobilinogen Ur Leukocyte Esterase Urine RBC Urine WBC Ur Squamous Epith Cells Urine Bacteria Hyaline Casts Ur Culture Indicated? Chlamy pneumoniae PCR Adenovirus (PCR) B.parapertussis DNA PCR Coronavirus OC43 (PCR) Coronavirus HKU1 (PCR) Coronavirus 229E (PCR) COVID-19 PCR Negative Coronavirus NL63 (PCR) Human Metapneumovir PCR Influenza Type A (PCR) Influenza Type B (PCR) M. pneumoniae (PCR) Parainfluenza 1 (PCR) Parainfluenza 2 (PCR) Parainfluenza 3 (PCR) Parainfluenza 4 (PCR) RSV (PCR) Entero/Rhino (PCR) 06/18/20 06/18/20 06/18/20 02:15 02:15 02:15 WBC RBC Hgb Hct MCV MCH MCHC RDW Plt Count Neut % (Auto) Lymph % (Auto) [place] % (Auto) Eos % (Auto) Baso % (Auto) Neut # (Auto) Lymph # (Auto) Castro # (Auto) Eos # (Auto) Baso # (Auto) Sodium 136 L Potassium 2.9 L Chloride 95 L Carbon Dioxide 37 H BUN 15 Creatinine 1.01 Estimated GFR > 60.0 BUN/Creatinine Ratio 14.9 Glucose 144 H Lactate 1.2 Calcium 9.3 Total Bilirubin 0.6 AST 128 H ALT 126 H Alkaline Phosphatase 95 Total Creatine Kinase CK-MB (CK-2) CK-MB (CK-2) Rel Index Troponin I Total Protein 7.2 Albumin 3.6 Globulin 3.6 Albumin/Globulin Ratio 1.0 Procalcitonin 0.16 Urine Color Urine Appearance Urine pH Ur Specific [place] Urine Protein Urine Glucose (UA) Urine Ketones Urine Occult Blood Urine Nitrate Urine Bilirubin Urine Urobilinogen Ur Leukocyte Esterase Urine RBC Urine WBC Ur Squamous Epith Cells Urine Bacteria Hyaline Casts Ur Culture Indicated? Chlamy pneumoniae PCR Adenovirus (PCR) B.parapertussis DNA PCR Coronavirus OC43 (PCR) Coronavirus HKU1 (PCR) Coronavirus 229E (PCR) COVID-19 PCR Coronavirus NL63 (PCR) Human Metapneumovir PCR Influenza Type A (PCR) Influenza Type B (PCR) M. pneumoniae (PCR) Parainfluenza 1 (PCR) Parainfluenza 2 (PCR) Parainfluenza 3 (PCR) Parainfluenza 4 (PCR) RSV (PCR) Entero/Rhino (PCR) 06/18/20 06/18/20 02:25 03:40 WBC RBC Hgb Hct MCV MCH MCHC RDW Plt Count Neut % (Auto) Lymph % (Auto) [place] % (Auto) Eos % (Auto) Baso % (Auto) Neut # (Auto) Lymph # (Auto) Castro # (Auto) Eos # (Auto) Baso # (Auto) Sodium Potassium Chloride Carbon Dioxide BUN Creatinine Estimated GFR BUN/Creatinine Ratio Glucose Lactate Calcium Total Bilirubin AST ALT Alkaline Phosphatase Total Creatine Kinase CK-MB (CK-2) CK-MB (CK-2) Rel Index Troponin I Total Protein Albumin Globulin Albumin/Globulin Ratio Procalcitonin Urine Color Yellow Urine Appearance Clear Urine pH 7.0 Ur Specific [place] 1.010 Urine Protein 1+ H Urine Glucose (UA) Negative Urine Ketones Negative Urine Occult Blood 3+ H Urine Nitrate Negative Urine Bilirubin Negative Urine Urobilinogen 0.2 Ur Leukocyte Esterase Negative Urine RBC 5-10/hpf H Urine WBC None seen Ur Squamous Epith Cells 0-1 /hpf Urine Bacteria Occasional (0-1) Hyaline Casts 0-1/lpf Ur Culture Indicated? Cult not indicated Chlamy pneumoniae PCR Not detected Adenovirus (PCR) Not detected B.parapertussis DNA PCR Not detected Coronavirus OC43 (PCR) Not detected Coronavirus HKU1 (PCR) Not detected Coronavirus 229E (PCR) Not detected COVID-19 PCR Not detected Coronavirus NL63 (PCR) Not detected Human Metapneumovir PCR Not detected Influenza Type A (PCR) Not detected Influenza Type B (PCR) Not detected M. pneumoniae (PCR) Not detected Parainfluenza 1 (PCR) Not detected Parainfluenza 2 (PCR) Not detected Parainfluenza 3 (PCR) Not detected Parainfluenza 4 (PCR) Not detected RSV (PCR) Not detected Entero/Rhino (PCR) Not detected Assessment & Plan Assessment & Plan narrative: This is a 74-year-old male with past medical history significant for prior CVA (residual left arm weakness), hyperlipidemia, depression, GERD who presents to the ER via EMS with chief complaint generalized weakness and is found to have a fever of 101 in the field with no identified source and hypokalemia. 1. Generalized weakness, acute on chronic, present on admission, active -left side hemiparesis s/p RCA CVA. -the patient describes progressive weakness over the last few days and poor appetite since being discharged from the hospital 06/09/2020 bruise treated for acute severe lumbar spine pain. -the patient reports waking this morning with a right ankle pain and indicates he summoned EMS his acute not get up off the couch due to weakness and the ankle pain. -chest x-ray finds no pulmonary infiltrates and identifies probable scarring. Ultrasound of the abdomen is obtained related to elevated AST of 128 and ALT of 126, findings reveal no gallstones, partially contracted gallbladder with normal wall thickness, negative sonographic Bhakta sign and common bile duct as identified is 2.7 mm. The patient reports that since discharge his back pain has improved with use Lidoderm patches and is noncontributory to his present weakness. -electrolytes the patient is found to be significantly hypokalemic with a potassium of 2.9 treated as described below. 2. Hypokalemia, acute, present on admission, active. -serum potassium on admission lab is 2.9. -patient describes poor appetite and is not on diuretic therapy and appears euvolemic. The patient describes transient diarrhea with homeopathic medication prescribed by his chiropractor. -the patient has metabolic alkalosis with assist CO of 37 on chemistry contributing to hypokalemia. -patient receives KCL 40 mEq by mouth in the ER, ordered potassium chloride 40 mEq IV x1 now. Will recheck BMP in the morning. 3. Metabolic alkalosis, acute, present on admission, active -patient is alkalotic from unknown reason, he is not on diuretic therapy and appears euvolemic, has no chronic respiratory issues labored breathing, nausea or vomiting -will recheck chemistry panel in morning. 4. Fever of unknown origin, present on admission, active -patient has a temperature 101? upon arrival EMS and 100.4 upon arrival in the ER. -patient has inflammatory markers including an elevated white count at 12.3 increased neutrophils at 10,800, sed rate of 56 and a CRP of 21.2. -chest x-ray finds no pneumonia, the patient denies complaints of abdominal pain and reports that his back pain is stable, right upper quadrant abdominal ultrasound finds no infective sources. -he does complain of new right ankle pain without redness or swelling and no cellulitic changes. Ordered two-view x-ray of the right ankle. -ordered MRI of the lumbar spine to rule out diskitis. 5. . Hyperlipidemia, chronic, stable -continue patient's home regimen of atorvastatin 80 mg and Slo-Niacin 500 mg. 6. GERD, chronic, stable -continue patient's Nexium 40 mg VTE prophylaxis: Enoxaparin IV fluid: Saline lock Diet: Heart healthy Code status: Full code, patient designates his son to be his surrogate decision maker. The patient is admitted to the hospital being unable to return to his home setting with generalized weakness and hypokalemia and reports further evaluation for and workup for fever of unknown origin. The patient is admitted as observation with expected length of stay to be less than 2 midnights. Scores [facility] [place] coma scale eye opening: Spontaneous Kathy coma scale verbal response: Orientated [place] coma scale motor response: Obey commands [place] coma scale total score: 15
[2020-06-18 05:21] LABS: Acetaminophen < 10 ug/mL (10-30)
[2020-06-18 05:23] LABS: C-Reactive Protein Quant 21.2 mg/dL (<1.0)
--- NOTE | 2020-06-18 05:35 | DI.RAD.S_ITS ---
PROCEDURE: XR ANKLE RT 2V INDICATIONS: Acute right ankle pain TECHNIQUE: 2 views of the ankle were acquired. COMPARISON: [facility], , ANKLE 3 VIEWS LEFT, 12/11/2011, 12:03. FINDINGS: Bones: No acute appearing fractures or dislocations. Remote appearing, well corticated irregularity can be seen involving the distal aspects of the medial malleolus and the lateral malleolus. Ankle mortise is normally aligned. No suspicious bony lesions. The talar dome demonstrates no gigi abnormality. Soft tissues: No tibiotalar joint effusion. Achilles tendon appears normal. IMPRESSION: No acute fractures are seen. Apparent remote avulsion fractures of the medial malleolus and the lateral malleolus. If there is point tenderness (or other clinical suspicion for a fracture not seen on these images) please consider a dedicated CT for further evaluation. Dictated by: Joao Paz M.D. on 06/18/2020 at 8:49 Approved by: Joao Paz M.D. on 06/18/2020 at 8:50
[2020-06-18 05:37] LABS: Erythrocyte Sedimentation Rate 56 MM/HR (0-15)
[2020-06-18] MEDS: POTASSIUM CHLORIDE 40 MEQ in SODIUM CHLORIDE 0.9% 500 ML 130 ML IV (06:33)
--- NOTE | 2020-06-18 06:40 | DI.MRI.S_ITS ---
PROCEDURE: MR LUMBAR SPINE W CON INDICATIONS: Rule out diskitis TECHNIQUE: Noncontrast sagittal T1 spin echo and T2 fast spin echo, sagittal STIR, axial T1 and T2 fast spin echo through the lumbar spine. In cases with scoliosis, additional coronal T2 fast spin echo may be performed. After the administration of contrast, sagittal and axial T1 spin echo with fat saturation through the lumbar spine. COMPARISON: [facility], MR, L-SPINE WITHOUT CONTRAST, 03/02/2010, 13:01. [facility], MR, L-SPINE WITHOUT CONTRAST, 11/29/2006, 18:25. [facility], CT, CT ABDOMEN PELVIS WO/W CON, 06/09/2020, 8:40. [facility], CT, CT LUMBAR SPINE WO CON, 06/08/2020, 11:54. FINDINGS: Image quality: This examination is limited by involuntary motion artifact. Alignment and curvature: There is mild retrolisthesis seen at L5-S1. Marrow: Marrow is of normal overall signal. No acute vertebral body compression fractures. No suspicious marrow enhancement. Spinal cord: Conus medullaris terminates at the L1 level. Visualized spinal cord demonstrates normal signal, without suspicious enhancement. Paraspinous soft tissues: No paravertebral masses or abnormal enhancement. This patient has transitional lumbar anatomy. For the purposes of this examination, the level with the last pair of ribs is considered to be T12. By this numbering scheme, the S1 level is partially lumbarized. There is a relatively well developed S1-S2 disc seen. T12-L1: Normal appearance. L1-L2: Normal appearance. L2-L3: Normal appearance. L3-L4: No significant abnormality is seen. L4-L5: Mild loss of disc height and disc signal can be seen. Mild generalized disc bulge is seen. There is a mild central disc protrusion. There is moderate bilateral neural foraminal narrowing seen, left worse than right. No significant central canal narrowing is seen. These imaging findings have progressed compared to the prior study. L5-S1: At least moderate loss of disc height and disc signal can be seen. Moderate disc bulge is seen, which is eccentric to the right. Moderate facet joint hypertrophy is seen. Moderate to severe bilateral neural foraminal narrowing can be seen. There is a degree of compression seen upon the exiting nerve roots. No significant central canal narrowing can be seen. These imaging findings have progressed compared to the prior study. IMPRESSION: No findings of discitis, osteomyelitis, or epidural abscess are seen. No abnormal enhancement is seen. Lower lumbar spine degenerative changes are seen, which are worst at the L5-S1 level. These degenerative changes have progressed compared to 2009. There is transitional lumbar anatomy, with a relatively well developed S1-S2 disc space. Dictated by: Joao Paz M.D. on 06/18/2020 at 9:20 Approved by: Joao Paz M.D. on 06/18/2020 at 9:26
[2020-06-18] MEDS: ENOXAPARIN 40 MG/0.4 ML SYRINGE SUBCUT (10:27)
[2020-06-18] MEDS: DOCUSATE 100 MG CAPSULE PO ×2 (10:27→21:14)
[2020-06-18] MEDS: LIDOCAINE PATCH 1 EACH ADH..PATCH TOP (10:27)
--- NOTE | 2020-06-18 11:13 | PT.IIE ---
Surgical History (Last Reviewed 06/18/20 @ 05:14 by IKER Parrish) History of skin surgery History of vasectomy Status post appendectomy Medical History (Last Reviewed 06/18/20 @ 05:14 by IKER Parrish) CVA (cerebral vascular accident) (1992) Depression GERD (gastroesophageal reflux disease) Hyperlipidemia Low back pain RCA occlusion Renal cyst, right Seizures Physical Therapy Inpatient Evaluation/Re-Eval M1 PT/OT-IP Prior Functional Status Start: 06/18/20 10:19 Freq: NEEDED Status: Active Protocol: Document 06/18/20 10:29 DCW (Rec: 06/18/20 11:13 DCW [id number]) Medical Review Prior Functional Status Medical History Reviewed Yes Mobility and Gait Ambulated around [place] independent living either with no assistive device or occasional cane use. L hemiplegia s/p prior CVA Social History Household Members none Living Arrangements Long Term Facility M2 PT-IP Current Condition Start: 06/18/20 10:19 Freq: NEEDED Status: Active Protocol: Document 06/18/20 10:29 DCW (Rec: 06/18/20 11:13 DCW [id number]) Physical Therapy Current Condition Current Condition Evaluation Date 06/18/20 Treatment Diagnosis Weakness Onset Date 06/18/20 Weight Bearing Status Weight Bearing Status Weight Bear as Tolerated M3 PT-IP Subjective Start: 06/18/20 10:19 Freq: NEEDED Status: Active Protocol: Document 06/18/20 10:29 DCW (Rec: 06/18/20 11:13 DC [id number]) Subjective Physical Therapy Visit Type Type Initial Evaluation Visit Start Time 10:29 Visit Stop Time 10:55 Total Visit Minutes 26 Notes Pt is a 74 year old male presenting with generalized weakness and decreased activity tolerance. Pt reports this morning he was on his couch at [facility], and is normally able to get himself up once I get my feet under me, but his right ankle was suddenly very sore and he was unable to stand. At that time, pt called heel builder machine, who found him to have a fever and brought him to the hospital. Upon therapist entering the room, pt was not interested in participation, however gradually agreeable to sit EOB to allow RN to place lidocane patch on back, and once sitting, more agreeable to standing and brief walk. At baseline, pt ambulates with no assistive device, or occasionally with a SPC. 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 Number of ENVIRONMENTAL QUALITY ANALYST Visits 0 Physical Therapy Visit Comments Patient Comments My ankle is feeling better now, but I don't really want to put weight on it. Therapy Pain Assessment Pain When Pain Assessed During Weight Bearing Pain Present Pain Present Pain Reported Location Right Ankle Intensity 3 Scale Used Numeric (0 - 10) M4 PT-IP Mobility and Gait Start: 06/18/20 10:19 Freq: NEEDED Status: Active Protocol: Document 06/18/20 10:29 DCW (Rec: 06/18/20 11:13 DCW [id number]) PT-Bed Mobility Assessment Rolling Type of Rolling Roll to Right Level of Assist Standby Assistance Supine to Sit Supine to Sit Standby Assistance Sit to Supine Sit to Supine Standby Assistance PT-Transfer Assessment Sit to and From Stand Sit to and from Stand Contact Guard Assistance,Use of Upper Extremities Equipment Transfer Assistive Device Bed Rail,Gait Belt,Front Wheeled Walker Transfer Ability Level of Assist Standby Assistance Gait Assessment Gait Gait Assistance Required: Contact Guard Assist Distance (Feet) 6 Able to Maintain Weight Bearing Status Yes During Gait Assistive Devices Assistive Device Gait Belt,Front Wheeled Walker Orthotic/Prosthetic Devices or Brace: No Gait Deviations General Gait Pattern Antalgic,Decreased Stride Length,Decreased Feet Clearance,Flexed Trunk,Lateral Trunk Lean Factors Limiting Gait Function Factors Limiting Gait Function Decreased Activity Tolerance, Decreased Strength,Pain PT-Balance Assessment Sitting Balance and Reactions Static Sitting Balance Ability Good Dynamic Sitting Balance Ability Good Standing Balance and Reactions Static Standing Balance Ability Fair Dynamic Standing Balance Ability Fair Device Used FWW M5 PT-IP Objective Assessments Start: 06/18/20 10:19 Freq: NEEDED Status: Active Protocol: Document 06/18/20 10:29 DCW (Rec: 06/18/20 11:13 DCW [id number]) Orientation Orientation/Cognition Level of Alertness Alert Orientation Name,Month,Date,Year,Place, Situation Language Function Ability No Deficits Noted Safety Awareness Understands Safety Issues Memory Description No Deficits Noted Gross Range of Motion Lower Extremity ROM Assessment Bilaterally Impaired Impairments Limited knee extension secondary to weakness and pain , unable to straighten knees when requested while sitting EOB, however was then later able to stand fully supported bilaterally with good quad control. Strength Upper Extremity Strength Assessment Bilaterally Impaired Lower Extremity Strength Assessment Bilaterally Impaired Comments Strength Comments R>L secondary to prior CVA M7 PT-IP Assessment and Plan Start: 06/18/20 10:19 Freq: NEEDED Status: Active Protocol: Document 06/18/20 10:29 DCW (Rec: 06/18/20 11:13 DCW [id number]) PT Summary Assessment and Plan Potential Rehabilitation Potential Good Status of Condition at Evaluation Stable Summary Impairments Pain,ROM,Strength,Balance,Gait ,Activity Tolerance Assessment Summary Pt presents with generalized weakness and decreased activity tolerance. Pt poorly motivated initially, however then willing to stand and walk a few steps at bedside with FWW, CGA. LE ROM and strength impairments vary, and different points unable to lift leg against gravity then fully support body weight on legs. Pt should benefit from skilled therapy during hospital stay to assist with activity tolerance and strengthening, and may benefit from home health upon discharge. Pt has SPC for use at home, may benefit from use of FWW if he does not show improved balance/stability prior to discharge. Goals Bed Mobility Goal Independent Transfer Goal Independent Gait Goal Independent Gait Distance 100' /c least restrictive assistive device Days to Meet Goals 2 Frequency of Treatment Frequency Of Treatment Once a Day Treatment Plan Physical Therapy Treatment Plan Gait Training,Therapeutic Exercise,Balance Retraining, Neuromuscular Re-ed Recommendations To Nursing Amount of Assist Needed Standby Assistance,1 Person Assist Discharge Recommendations PT Discharge Recommendations Home,Home Health Equipment Needed for Home Before Possible FWW Discharge Transportation Needs at Discharge Private Vehicle
[2020-06-18 11:44] LABS: Uric Acid 3.8 mg/dL (3.5-8.5)
[2020-06-18 12:48] LABS: Alanine Aminotransferase 100 IU/L (<50); Albumin 3.3 g/dL (3.5-5.0); Albumin Globulin Ratio 1.1 (1.0-2.8); Alkaline Phosphatase 86 U/L (38-126); Aspartate Aminotransferase 104 IU/L (17-59); BUN Creatinine Ratio 18.4 (6-22); Bilirubin Total 0.5 mg/dL (0.2-1.3); Blood Urea Nitrogen 14 mg/dL (9-20); Carbon Dioxide 32 mmol/L (22-32); Chloride 103 mmol/L (98-107); Estimated Glomerular Filt Rate > 60.0 mL/min (>60); Globulin 3.1 g/dL (1.7-4.1); Glucose 169 mg/dL (80-110); HEMOLYSIS < 15 (0-50); Potassium 3.4 mmol/L (3.4-5.1); Sodium 137 mmol/L (137-145); Total Protein 6.4 g/dL (6.3-8.2)
--- NOTE | 2020-06-18 13:23 | CM.DANOTE ---
Addendum entered by HARSHAL Dupree 06/18/20 15:46: ADD; SW received a call from pt's Dtr Faiza (pt's salesperson used cars and established visitor) requesting information to best support pt at d/c. SW updated her on PT recommendations and very agreeable with HH. Family is planning to begin supporting pt on completing forms like DPOA, POLST, and beginning to discuss eventual care needs of likely Assisted Living in the future. SW discussed at length the importance of DPOA and POLST for the family now while pt is competent. SW also answered many questions regarding LTC options and Medicaid and cost. SW provided DPOA brochure and copy, [facility] brochure, Senior Resource Guidebook, and the LTC Medicaid application bedside for when Dtr Faiza arrives tomorrow bedside. SW updated pt on HH and the resource information and pt continues to be agreeable with [facility] and discussed his life challenges and strengths. Pt very thankful to have such a loving and supportive Dtr and two sons. Plan: SW to follow tomorrow for possible plan of d/c back to [facility] via Dtr POV when medically stable and new [facility] referral. BF Original Note: Patient is a 74 year old male who was admitted on 06/18/20 for General Weakness. Pt has [facility] ADV for insurance and his PCP is Dr. asa Mensah. EMR was reviewed. Per MD, pt with hx of CVA and left sided weakness and admitted for generalized weakness and hypokalemia. PT was ordered and recommending likely safe return back to [facility] and HH. SUSY met briefly bedside with pt after MRI and PT eval and pt appeared to be quite tired and flat affect. Pt confirmed that he was recently in the ED and declined HH and discharged from ED to his apt at [facility]. Pt preference is home and his Dtr plans to come visit pt later today and pt is somewhat agreeable to HH. SW provided the HH Choice list and no preference at this time. Pt agreeable with SW making a HH referral at this time and will make final decision tomorrow if he is agreeable to HH. SW made HH referral to [facility] based on Vendor Calendar and faxed clinicals and requested review for possible d/c tomorrow if pt is stable. F2F still needs to be signed. Plan: SW to follow closely tomorrow with [facility] review and confirmation of plan of back home to [facility] with new [facility] referral. HARSHAL Dupree Discharge Planning/Care Management CM Discharge Assessment Start: 06/18/20 13:21 Freq: Status: Active Protocol: Document 06/18/20 13:21 BF (Rec: 06/18/20 13:23 BF [id number]) Discharge Planning Assessment Assigned Insole And Heel Stiffener HARSHAL Benavides DPOA/Assigned Designee Name Bruce Buenrostro Contact Information [phone] Advance Directives? No Advance Directives on File No History Provided By Patient,Medical Record Has Patient been admitted in last 30 No days? Comment But was in the ED on 06/09/20 and declined HH at that time and went back home alone via brother POV Prior Living Arrangements [facility] Household Members none Type of transporation used prior to Drives own vehicle admit Facility Name Admitted From: [facility] Willing to Return to Facility? Yes Independent with ADL's Yes Is patient alert and oriented? Yes Needs Assistance With Meal Prep,Home Chores / Shopping Caregiver for Another No Patient/Family Preference Home with Home Health Barriers to Discharge No Discharge Plan Home with Home Health Transportation Arrangement Family can transport home Referrals Initiated Home Health Medicare Choice List Provided Yes SNF/HH Preference no preference, referral to HH based on vendor calendar Whiteboard Updated in Patient Room with Yes name and ext. # of Insole And Heel Stiffener Review Status In Process Please Provide Date Initial DC 06/18/20 Assessment Was Performed Next Review Type Continued Stay Review
--- NOTE | 2020-06-18 13:29 | PC.NURSE ---
Patient is A&Ox3, he denies pain at this time. He has a krider infusing that is almost finished. Hx of CVA at 47 years old. Patient has left sided hemiparisis and l.hand is contractured. He is a one person assist with fww and gaitbelt. Patient worked with physical therapy for a short time and was able to stand. He is resting now and will be heplocked soon. He has been having some difficulty ambulating and temps when he was admitted, patient has been afebrile for this shift.
--- NOTE | 2020-06-18 14:35 | OT.IP.TRT ---
Occupational Therapy Treatment Note M3 OT- IP Subjective and Pain Start: 06/18/20 14:34 Freq: Status: Active Protocol: Document 06/18/20 14:34 CGR (Rec: 06/18/20 14:35 CGR [id number]) OT- Subjective Occupational Therapy Visit Type Type Administrative Note Notes Attempted to see pt for OT services. Pt declined all activity stating that he was fatigued after getting up this morning with P.T. Will continue to follow for OT eval .
[2020-06-18] MEDS: CALCIUM CARBONATE 500 MG TAB PO ×2 (17:09→21:30)
[2020-06-18] MEDS: TRAZODONE 50 MG TABLET PO (21:14)
[2020-06-19 04:25] VITALS: BP 138/87; PULSE 78; RESP 16; TEMP 36.7; O2SAT 96
[2020-06-19] MEDS: PANTOPRAZOLE 40 MG TABLET PO (05:05)
[2020-06-19 05:11] LABS: Add Manual Diff / Slide Review NO; Basophils Absolute Auto 0 /uL (0-100); Basophils Percent Auto 0.2 % (0-2); Eosinophils Absolute Auto 100 /uL (0-450); Eosinophils Percent Auto 0.8 % (2-4); Hematocrit 35.6 % (41-53); Hemoglobin 11.7 g/dL (13.5-17.5); Lymphocytes Absolute Auto 800 /uL (1100-4500); Lymphocytes Percent Auto 7.4 % (25-40); Mean Corpuscular HGB Conc 32.9 % (30-36); Mean Corpuscular Hemoglobin 27.2 PG (26-34); Mean Corpuscular Volume 82.5 fL (80-100); Monocytes Absolute Auto 800 /uL (0-900); Neutrophils Absolute Auto 8800 /uL (1500-7000); Neutrophils Percent Auto 83.6 % (50-75); Platelet Count 262 X10^3/uL (150-400); Red Blood Cell Count 4.31 X10^6/uL (4.5-5.9); Red Cell Distribution Width 15.4 % (11.6-14.8); White Blood Cell Count 10.5 X10^3/uL (4.5-11.0)
[2020-06-19 05:17] LABS: BUN Creatinine Ratio 17.6 (6-22); Blood Urea Nitrogen 13 mg/dL (9-20); Calcium 9.2 mg/dL (8.4-10.2); Carbon Dioxide 34 mmol/L (22-32); Chloride 102 mmol/L (98-107); Estimated Glomerular Filt Rate > 60.0 mL/min (>60); Glucose 113 mg/dL (80-110); HEMOLYSIS < 15 (0-50); Potassium 3.5 mmol/L (3.4-5.1); Sodium 138 mmol/L (137-145)
[2020-06-19 07:47] VITALS: BP 158/92; PULSE 80; RESP 16; TEMP 36.4; O2SAT 96
[2020-06-19] MEDS: CALCIUM CARBONATE 500 MG TAB PO (09:36)
[2020-06-19] MEDS: LIDOCAINE PATCH 1 EACH ADH..PATCH TOP (09:42)
[2020-06-19] MEDS: DOCUSATE 100 MG CAPSULE PO ×2 (09:42→21:28)
[2020-06-19] MEDS: ASPIRIN EC 325 MG TABLET PO (09:42)
[2020-06-19] MEDS: FINASTERIDE 5 MG TABLET PO (09:42)
[2020-06-19] MEDS: ENOXAPARIN 40 MG/0.4 ML SYRINGE SUBCUT (09:43)
[2020-06-19] MEDS: SERTRALINE 50 MG TABLET 100 MG PO (09:43)
[2020-06-19] MEDS: ACETAMINOPHEN 325 MG TABLET 650 MG PO ×3 (09:43→23:39)
[2020-06-19] MEDS: ATORVASTATIN 20 MG TABLET 80 MG PO (09:43)
--- NOTE | 2020-06-19 10:39 | P.DS_ITS ---
History of Present Illness History of Present Illness Chief complaint: General Weakness Narrative: Mr. Dionicio Watts is a 74-year-old male with past medical history significant for prior CVA (residual left arm weakness), hyperlipidemia, depression, GERD who presents to the ER via EMS with chief complaint generalized weakness. The patient reports he has had progressive weakness over the last few days and summoned EMS because he could not get up off his couch and reports right ankle pain since this morning. Per medics upon arrival patient had a temperature of 101? on seen. The patient is a difficult historian. He denies falls or trauma or change in medications since he was discharged from the [facility] after being admitted for acute on chronic back pain on 06/08/2020 and discharged the following day with Lidoderm patches. The patient states he has had could pain management with patches. He states he has had no fevers or chills, no headaches or dizziness, nasal congestion or sore throat. He reports no chest pain or palpitations and denies shortness of breath cough or wheezing. He has no complaints of epigastric or abdominal, nausea or vomiting. He adds that he eats 1 meal a day and has poor appetite. Since discharge the patient has been seen by his chiropractor and he states he is now back in line. She also prescribed ?calm? which the patient states has magnesium in it which gave him diarrhea and has since stopped. The patient normally ambulates around his care facility with a cane. Upon arrival to the ER the patient's temperature 100.4?, heart rate 91, blood pressure 135/68, respiratory rate of 21 saturating 95% on room air. A chest x- ray obtained which shows only probable scarring and ultrasound of the abdomen finds no gallstones, a partially contracted gallbladder and no common bile duct dilation, sonographic negative Bhakta sign. On laboratory analysis the patient has an elevated white count of 12.3 with elevated neutrophils at 10,800, hemoglobin of 12.6, hematocrit of 39.2 and platelets of 292. He has a sodium of 136 with a potassium of 2.9 and appears alkalotic with a CO 37 and has a BUN of 15 and a creatinine of 1.01. He has a total bilirubin 0.6, elevated AST of 128, elevated ALT at 1:26 a.m. and alkaline phosphatase of 95. His albumin is 3.6. H is lactic acid of 1.2, procalcitonin 0.16, a respiratory panel that is completely negative and a negative COVID screening. He has a total CK of 35 and troponin is less than 0.012. On urinalysis he is positive for RBCs and protein but negative for leukocyte esterase, nitrates or WBCs with few bacteria. The patient is admitted to the hospitalist service for generalized weakness, hypokalemia and is unable to return to his assisted living facility safely. Discharge Providers Provider Date of admission: 06/18/20 04:37 Discharge Date: 06/19/20 Primary care physician: Cierra Mensah MD Consults: 06/18/20 05:10 Consult to Discharge Planning Routine Comment: Consult to Occupational Therapy Evaluate & Treat Comment: Generalized weakness Physician Instructions: Evaluate and treat Consult to Physical Therapy Evaluate & Treat Comment: Generalized weakness Physician Instructions: Evaluate and Treat 06/18/20 06:10 Consult to Dietitian, Adult Routine Comment: Reason For Exam: weight loss, 1 meal daily, poor appetite. Consult to Pastoral Services Routine Comment: patient request Discharge provider: Nikolay Doyle MD Summary Hospital Course Discharge Diagnosis: 1. Generalized weakness, acute on chronic 2. Acute hypokalemia, resolved 3. Fever of undetermined etiology, without evidence of infectious process, resolved 4. Right ankle pain 5. Chronic low back pain 6. Left hemiparesis secondary to history of CVA Hospital Course: This is a 74-year-old male with past medical history significant for prior CVA (residual left arm weakness), hyperlipidemia, depression, GERD who presents to the ER via EMS with chief complaint generalized weakness and is found to have a fever of 101 in the field with no identified source and hypokalemia. The patient described progressive weakness over the last few days and poor appetite since being discharged from the hospital 06/09/2020 after treated for acute severe lumbar spine pain. He reported waking this morning with a right ankle pain and he summoned EMS due to weakness and difficulty walking. There was no acute infiltrate on chest x-ray. Ultrasound of abdomen was obtained due to mild LFT elevation and did not reveal any concerning findings. Patient reported that since discharge his back pain had improved with use of Lidoderm patches and is noncontributory to his present weakness. X-rays of right ankle showed old fractures but no acute findings. In regards to low-grade fever, etiology was unclear and he has not had any further temperature spikes. COVID and respiratory PCR testing were normal. Blood cultures have been negative. Urinalysis microscopic was normal. Chest x- ray without infiltrate. His initial WBC was 12.3 and subsequently 10.5 without antibiosis. He has elevated inflammatory markers with ESR 56 and CRP 21 without determine etiology. His procalcitonin was normal at 0.16. He does not have history of prosthetic joints or other retained hardware. In regards to ankle pain, on exam and it appeared mildly swollen and a little warm but not obviously erythematous and not appearing as a ?hot? joint. As noted x-rays did not show acute findings. Ankle discomfort was relieved with Tylenol. He had PT evaluation and determine safe to discharge home with home health services. He has improved weight-bearing with assistance of walker. Patient received potassium replacement for acute hypokalemia with subsequent normalization of serum potassium. Status at Discharge Cognitive/behavioral status at discharge: oriented Functional status at discharge: uses cane/walker Overall status at discharge: patient is progressing back to baseline Time Spent with Patient Time spent: Greater than 30 minutes Exam Vital Signs (past 8 hours): - 06/19/20 04:25 06/19/20 07:47 Temperature 98.0 F 97.5 F L Pulse Rate 78 80 Respiratory Rate 16 16 Blood Pressure 138/87 158/92 H Pulse Oximetry 96 96 Oxygen Delivery Method Room Air Oxygen Flow Rate 0 Objective Labs Result Diagrams: 06/19/20 04:50 06/19/20 04:50 Labs: Laboratory Results - last 24 hr 06/18/20 06/18/20 06/19/20 11:15 11:15 04:50 WBC 10.5 RBC 4.31 L Hgb 11.7 L Hct 35.6 L MCV 82.5 MCH 27.2 MCHC 32.9 RDW 15.4 H Plt Count 262 Neut % (Auto) 83.6 H Lymph % (Auto) 7.4 L [place] % (Auto) 8.0 Eos % (Auto) 0.8 L Baso % (Auto) 0.2 Neut # (Auto) 8800 H Lymph # (Auto) 800 L [place] # (Auto) 800 Eos # (Auto) 100 Baso # (Auto) 0 Sodium 137 Potassium 3.4 Chloride 103 Carbon Dioxide 32 BUN 14 Creatinine 0.76 Estimated GFR > 60.0 BUN/Creatinine Ratio 18.4 Glucose 169 H Uric Acid 3.8 Calcium 9.0 Total Bilirubin 0.5 AST 104 H ALT 100 H Alkaline Phosphatase 86 Total Protein 6.4 Albumin 3.3 L Globulin 3.1 Albumin/Globulin Ratio 1.1 06/19/20 04:50 WBC RBC Hgb Hct MCV MCH MCHC RDW Plt Count Neut % (Auto) Lymph % (Auto) [place] % (Auto) Eos % (Auto) Baso % (Auto) Neut # (Auto) Lymph # (Auto) [place] # (Auto) Eos # (Auto) Baso # (Auto) Sodium 138 Potassium 3.5 Chloride 102 Carbon Dioxide 34 H BUN 13 Creatinine 0.74 Estimated GFR > 60.0 BUN/Creatinine Ratio 17.6 Glucose 113 H Uric Acid Calcium 9.2 Total Bilirubin AST ALT Alkaline Phosphatase Total Protein Albumin Globulin Albumin/Globulin Ratio [facility] Medical History CVA (cerebral vascular accident) (1992) Depression GERD (gastroesophageal reflux disease) Hyperlipidemia Low back pain RCA occlusion Renal cyst, right Seizures Surgical History History of skin surgery History of vasectomy Status post appendectomy Family History Father Heart attack Mother No problems noted. Brother No problems noted. Brother No problems noted. Sister No problems noted. Social History marital status: household members: none lives independently: Yes caregiver/support person: No Smoking Status: Former smoker second hand exposure: No alcohol intake: never substance use type: does not use Discharge Plan Discharge Plan Patient Disposition: Home Provider Discharge Comment: Take Tylenol as needed for pain. Use walker for stability and balance. Nursing Discharge Comment: d/c after PT eval Discharge orders & Medications Prescriptions: New acetaminophen 325 mg Tablet 650 mg PO Q6HR PRN (Reason: Fever/Mild Pain (1-3)) Qty: 30 RF: 0 Continued (DME) Disabled Parking Permit Qty: 1 RF: 0 atorvastatin 80 mg tablet 80 mg PO DAILY RF: 0 finasteride 5 mg tablet 5 mg PO DAILY RF: 0 aspirin 325 mg Tablet 325 mg PO DAILY RF: 0 lisinopril 40 mg Tablet 40 mg PO DAILY RF: 0 niacin [Slo-Niacin] 500 mg Tablet Extended Release 500 mg PO BEDTIME RF: 0 trazodone 50 mg Tablet 50 mg PO BEDTIME RF: 0 sertraline 100 mg tablet 100 mg PO DAILY RF: 0 esomeprazole magnesium [Nexium] 40 mg Capsule,Delayed Release(Dr/Ec) 40 mg PO DAILY RF: 0 Follow up/Referrals: Cierra Mensah MD [Primary Care Provider] - Discharge Health Status Multidrug resistant organism: No MDRO Diet/Activity/Treatments Diet: Diet as Tolerated Discharge Data Primary Care Provider: Cierra Mensah Attending Provider: Gunner Cruz VTE Deep Vein Thrombosis/Pulmonary Embolism Present on Admission: No
[2020-06-19 12:12] VITALS: BP 116/80; PULSE 98; RESP 16; TEMP 36.1; O2SAT 98
--- NOTE | 2020-06-19 12:44 | PT.IPTN ---
Physical Therapy Treatment Note M2 PT-IP Current Condition Start: 06/18/20 10:19 Freq: NEEDED Status: Active Protocol: Document 06/18/20 10:29 DCW (Rec: 06/18/20 11:13 DCW [id number]) Physical Therapy Current Condition Current Condition Evaluation Date 06/18/20 Treatment Diagnosis Weakness Onset Date 06/18/20 Weight Bearing Status Weight Bearing Status Weight Bear as Tolerated M3 PT-IP Subjective Start: 06/18/20 10:19 Freq: NEEDED Status: Active Protocol: Document 06/19/20 12:22 CLB (Rec: 06/19/20 13:21 CLB [id number]) Subjective Physical Therapy Visit Type Type Treatment Note Visit Start Time 12:22 Visit Stop Time 12:44 Total Visit Minutes 20 Notes Daughter Faiza present for tx. Number of WATCH CRYSTAL CUTTER Visits 1 Physical Therapy Visit Comments Patient Comments Pt willing to do therapy. Therapy Pain Assessment Pain When Pain Assessed During Weight Bearing Pain Present Pain Present Pain Reported Location R ankle Intensity 3 Scale Used Numeric (0 - 10) Pain Management Techniques Modification of Treatment,Re- positioning M4 PT-IP Mobility and Gait Start: 06/18/20 10:19 Freq: NEEDED Status: Active Protocol: Document 06/19/20 12:22 CLB (Rec: 06/19/20 13:21 CLB [id number]) PT-Transfer Assessment Sit to and From Stand Sit to and from Stand Contact Guard Assistance,1 Person Assistance,Use of Upper Extremities Equipment Transfer Assistive Device Gait Belt,Front Wheeled Walker Comments Mobility Comments Pt in chair upon arrival. Pt ambulates with shoes on and required assist with donning shoes. Pt required cues for hand placement on arms of chair rather than on walker. Pt required CGA to stand. Pt then ambulated ~30ft w/FWW/CGA and cues for walker use. After ~30ft pt stated his left ankle hurt and he needed to use the BR. Pt ambulated back to room ~30ft. Pt required cues to push walker over toilet to urinate requiring SBA. Pt then ambulated to sink with cues to push walker to counter and stay inside walker for safety and washed his hands. Pt then ambulated to chair sitting CGA to slow descent. Pt performed seated ther ex. Pt left in chair with all needs within reach, daughter present and informed RN patient did not have chair alarm. Chair alarm not available in [facility]. Gait Assessment Gait Gait Assistance Required: Contact Guard Assist Distance (Feet) 60 Able to Maintain Weight Bearing Status Yes During Gait Assistive Devices Assistive Device Gait Belt,Front Wheeled Walker Orthotic/Prosthetic Devices or Brace: No Gait Deviations General Gait Pattern Antalgic,Decreased Stride Length,Decreased Feet Clearance,Flexed Trunk,Lateral Trunk Lean Factors Limiting Gait Function Factors Limiting Gait Function Decreased Activity Tolerance, Decreased Strength, Incoordination,Pain,Poor Safety Awareness Comments Gait Comments Pt requires CGA for gait for safety at this time. Pt has poor safety awareness and requires cues to stay inside walker with increased cues during turns. Pt also requires cues to keep walker near during chair approach and until legs are touching chair and is safe to reach back to chair and sit. M5 PT-IP Objective Assessments Start: 06/18/20 10:19 Freq: NEEDED Status: Active Protocol: Document 06/18/20 10:29 DCW (Rec: 06/18/20 11:13 DCW [id number]) Orientation Orientation/Cognition Level of Alertness Alert Orientation Name,Month,Date,Year,Place, Situation Language Function Ability No Deficits Noted Safety Awareness Understands Safety Issues Memory Description No Deficits Noted Gross Range of Motion Lower Extremity ROM Assessment Bilaterally Impaired Impairments Limited knee extension secondary to weakness and pain , unable to straighten knees when requested while sitting EOB, however was then later able to stand fully supported bilaterally with good quad control. Strength Upper Extremity Strength Assessment Bilaterally Impaired Lower Extremity Strength Assessment Bilaterally Impaired Comments Strength Comments R>L secondary to prior CVA M6 PT-IP Treatment Start: 06/18/20 10:19 Freq: NEEDED Status: Active Protocol: Document 06/19/20 12:22 CLB (Rec: 06/19/20 13:21 CLB [id number]) Physical Therapy Treatment Exercises Exercises Ankle Pumps,Gluteal Sets,Quad Sets,Seated Knee Flexion/ Extension Education Education Provided Weight Bearing Status,Safety M7 PT-IP Assessment and Plan Start: 06/18/20 10:19 Freq: NEEDED Status: Active Protocol: Document 06/19/20 12:22 CLB (Rec: 06/19/20 13:21 CLB [id number]) PT Summary Assessment and Plan Potential Rehabilitation Potential Good Status of Condition at Evaluation Stable Summary Impairments Pain,ROM,Strength,Balance,Gait ,Activity Tolerance Assessment Summary Pt continues to demonstrate weakness and decreased activity tolerance. Pt willing to work with therapy today but requires CGA with sit<> stand with cues for hand placement for safety, CGA during ambulation for safety due to poor safety awareness and cues for walker management . Pt is limited due to pain in left ankle and decreased activity tolerance. At this time pt is unsafe to return home alone and would benefit from SNF rehab before returning to [facility] to improve strength and activity tolerance for independent mobility. Goals Bed Mobility Goal Independent Transfer Goal Independent Gait Goal Independent Gait Distance 100' /c least restrictive assistive device Days to Meet Goals 2 Frequency of Treatment Frequency Of Treatment Once a Day Treatment Plan Physical Therapy Treatment Plan Gait Training,Therapeutic Exercise,Balance Retraining, Neuromuscular Re-ed Recommendations To Nursing Amount of Assist Needed Standby Assistance,1 Person Assist Discharge Recommendations PT Discharge Recommendations Home with 14/01 Assist,Home Health,SNF Rehab Equipment Needed for Home Before Possible FWW Discharge Transportation Needs at Discharge Private Vehicle
--- NOTE | 2020-06-19 12:55 | OT.IP.EVAL ---
Past Medical History (Last Reviewed 06/18/20 @ 05:14 by IKER Parrish) CVA (cerebral vascular accident) (1992) Depression GERD (gastroesophageal reflux disease) Hyperlipidemia Low back pain RCA occlusion Renal cyst, right Seizures Surgical History (Last Reviewed 06/18/20 @ 05:14 by IKER Parrish) History of skin surgery History of vasectomy Status post appendectomy Occupational Therapy Inpatient Evaluation/Re-Eval M1 PT/OT-IP Prior Functional Status Start: 06/18/20 10:19 Freq: NEEDED Status: Active Protocol: Document 06/18/20 10:29 DCW (Rec: 06/18/20 11:13 DCW [id number]) Medical Review Prior Functional Status Medical History Reviewed Yes Mobility and Gait Ambulated around [place] independent living either with no assistive device or occasional cane use. L hemiplegia s/p prior CVA Social History Household Members none Living Arrangements Fdc Facility M1 PT/OT-IP Prior Functional Status Start: 06/18/20 14:34 Freq: NEEDED Status: Active Protocol: Document 06/19/20 12:34 RM (Rec: 06/19/20 12:55 RM [id number]) Medical Review Prior Functional Status Medical History Reviewed Yes Diet/Fluid Consistency Regular Communication Patient able to make his needs known. Mobility and Gait Ambulated around [place] independent living either with no assistive device or occasional cane use. L hemiplegia s/p prior CVA. Activities of Daily Living and IADL's Patient reports (I) with ADLs and IADLs at baseline. However , upon further discussion he reports progressive difficulties d/t his pain including lack of proper hygiene and bathing. Family also reports apartment is very unsanitary with buckets of urine around his apartment as he was having difficulty accessing the bathroom and does not have help to empty these buckets. Social History Household Members none Living Arrangements Fdc Facility Number of Floors (Floors) One Floor Home Environment Standard Height Toilet,Walk in Shower,Built-In Shower Seat Home Equipment Straight Cane,Manual Wheelchair Additional Social History Comment Patient reports he has a loaner [facility] d/t difficulty walking. His daughter reports that since COVID restrictions family has been unable to visit him and help with housekeeping as they previously did. She also reports that after his last hospitalization he stayed briefly with his brother where he had difficulty getting out of bed. Has support for meals. M2 OT-IP Current Condition Start: 06/18/20 14:34 Freq: Status: Active Protocol: Document 06/19/20 12:34 RM (Rec: 06/19/20 12:55 RM [id number]) Occupational Therapy Current Condition Current Condition Evaluation Date 06/19/20 Treatment Diagnosis generalized weakness, hypokaelmia, R ankle pain Diagnosis Onset Date 06/18/20 Post Operative Precautions Other Precautions FALL RISK M3 OT- IP Subjective and Pain Start: 06/18/20 14:34 Freq: Status: Active Protocol: Document 06/19/20 12:34 RM (Rec: 06/19/20 12:55 RM [id number]) OT- Subjective Occupational Therapy Visit Type Type Initial Evaluation Visit Start Time 10:40 Visit Stop Time 11:45 Total Visit Minutes 65 Occupational Therapy Visit Comments Patient Comments I haven't showered in a while . I am in pain all the time and it is hard to do stuff. Patient/Caregiver Goals Patient goal is to return home . Discussed recommendation for discharge to SNF and to continue assessment and discussion for possible transition to higher level of care. Patient and daughter verbalized understanding. OT Pain Assessment Pain When Pain Assessed During Mobility Pain Present Pain Present Pain Reported Location R ankle Pain Behaviors Facial Grimacing,Guarding, Wincing M4 OT- IP ADL's Start: 06/18/20 14:34 Freq: Status: Active Protocol: Document 06/19/20 12:34 RM (Rec: 06/19/20 12:55 RM [id number]) OT ADL-Grooming General Evaluation Areas Needing Assistance Retrieving/Set-up of Grooming Items Comments OT Grooming Comments Patient requires cue to initiate hygiene routine. Presents with significant body odor, dental build-up, and skin build-up on scalp and feet. With encoruagement able to complete grooming tasks. OT ADL-Dressing General Eval Upper Body Dressing Ability Minimal Assistance Lower Body Dressing Ability Moderate Assistance Areas Needing Assistance Retrieving/Set-up of Clothing, Underpants/Brief,Socks,Shoes OT ADL-Toileting General Evaluation Toileting Ability Minimal Assistance Devices Toileting Assistive Devices Commode,Grab Bars Comments OT Toileting Comments Patient with BM residue on brief without awareness and required assist for thourough perineal hygiene after BM. OT ADL-Bathing Bathing Type Bathing Type Shower General Evaluation Bathing Ability Moderate Assistance Areas Needing Assistance Wash/Dry Back,Wash/Dry Perineal Area,Wash/Dry Lower Extremities Devices Bathing Equipment Hand Held Shower Sprayer, Shower Chair with Arms,Grab Bars M5 OT- IP IADL's Start: 06/18/20 14:34 Freq: Status: Active Protocol: Document 06/19/20 12:34 RM (Rec: 06/19/20 12:55 RM [id number]) OT-Instrumental Activities of Daily Living Deficits IADL Deficits Identified Deficits Home Safety Awareness Awareness of Need for Assistance at Home Decreased Awareness M6 OT- IP Functional Cognition Start: 06/18/20 14:34 Freq: Status: Active Protocol: Document 06/19/20 12:34 RM (Rec: 06/19/20 12:55 RM [id number]) Cognitive Factors Limiting Selfcare Function Cognitive Ability Level of Alertness Alert Patient Orientation Name,Month,Date,Year,Place, Situation Ability to Follow Commands Able to Follow One Step Commands Safety Awareness Underestimates Need for Assistance Problem Solving Ability Needs Assist to Identify Solutions Cognitive Comments Cognitive Assessment Comments Patient demonstrates increased time required for processing information and benefits from repition. He also benefits from verbal cues for initation of tasks. Recommend further cognitive assessment and full IADL assessment including ability to manage his medications. Also recommend follow-up with PCP regarding cognitive impairement and consideration for higher level of care. OT- Vision and Hearing OT- Hearing Assessment OT- Hearing Assessment WFL OT- Vision Assessment Visual Acuity Glasses For Reading Visual Attentiveness WFL M7 OT- IP Mobility and Balance Start: 06/18/20 14:34 Freq: Status: Active Protocol: Document 06/19/20 12:34 RM (Rec: 06/19/20 12:55 RM [id number]) OT- Bed Mobility Assessment Supine to Sit Supine to Sit Assist Minimal Assistance OT-Transfer Assessment Sit to and From Stand Sit to and from Stand Minimal Assistance Transfers Transfer Ability Minimal Assistance Technique Transfer Destination Shower Stall,Toilet Devices Transfer Assistive Devices Gait Belt,Front Wheeled Walker Comments Mobility Comments Patient requires cues for safe use of FWW including cues for motor planning to use device in bathroom to access toilet and shower. OT- Gait Assessment Gait Gait Assistance Required: Contact Guard Assist Assistive Devices Assistive Device Gait Belt,Front Wheeled Walker Comments Gait Ability Comments Patient ambulating in room to access BR with FWW. Able to maintain grasp with LUE. OT- Balance Assessment Sitting Balance and Reactions Static Sitting Balance Ability Normal Dynamic Sitting Balance Ability Good Standing Balance and Reactions Static Standing Balance Ability Good Dynamic Standing Balance Ability Fair M8 OT- IP Objective Assessments Start: 06/18/20 14:34 Freq: Status: Active Protocol: Document 06/19/20 12:34 RM (Rec: 06/19/20 12:55 RM [id number]) OT Gross Range of Motion Upper Extremity Range of Motion Assessment Within Functional Limits OT Strength Upper Extremity Strength Assessment Within Functional Limits M9 OT- IP Assessment and Plan Start: 06/18/20 14:34 Freq: Status: Active Protocol: Document 06/19/20 12:34 RM (Rec: 06/19/20 12:55 RM [id number]) OT Summary Assessment and Plan Potential Rehabilitation Potential Good Analytic Complexity at Evaluation Moderate Summary OT Impairments Pain,Strength,Balance, Functional Cognition, Functional Mobility,Grooming, Dressing,Toileting,Bathing, Toilet Transfers,Shower Transfers,Activity Tolerance Assessment Summary Patient is a 74 year old male admitted from home with generalized weakness. On evaluation his pain, weakness, and cognitive impairment are having a significant impact of his safety and independence with functional mobility and self-care. Recommend SNF for ongoing rehab including cognitive assessment and IADL assessment and discussion of higher level of care. Goals Dressing Goal Standby Assistance Toileting Goal Standby Assistance Bathing Goal Minimal Assistance Toilet Transfer Goal Standby Assistance Shower Transfer Goal Standby Assistance Days to Meet Goals 7 Frequency of Treatment Frequency Of Treatment Once a Day Treatment Plan OT Treatment Plan ADL Training,Functional Cognition Training,Functional Mobility,IADL Training, Therapeutic Exercises,Patient/ Family Education,Discharge Planning Other Treatment Recommendations and Next Cognitive assessment and IADL Treatment Focus assessment with focus on medication management Discharge Recommendations OT Discharge Recommendations SNF Rehab Other Discharge Recommendations Recommend further assessment to consider need for higher level of care. Home Equipment Needs FWW, shower chair, grab bars Transportation Needs at Discharge Private Vehicle
--- NOTE | 2020-06-19 14:09 | CM.DPC ---
DCP Cont: Per MD, pt seems to be stabilizing and could be medically stable to d/c today pending further PT/OT eval. Per PT/OT, now recommending SNF rehab at d/c prior to safe return home alone to independent living. Dtr bedside and also stating concerns with pt d/c home alone today and agreeable with SNF. MD cancelled d/c orders for today to create a safer d/c plan and confirm pt stable for d/c. SW met bedside with pt and Dtr Faiza ([phone]) and explained role and discussed SNF recommendation. Pt agreeable, although he had been hopeful to d/c back to [facility] but per Dtr prior to pt's admission he had been urinating in buckets in his apt and some had spilled and he had not been keeping up on hygiene or self care. SW discussed the need to find a [employer] contracted SNF and then determine which have openings and then the need for [employer] to auth coverage for SNF stay. Both aware that if insurance auths SNF, he may need to go to SNF farther out in [facility] or even another [facility]. SW discussed the chance that [employer] may not approve coverage for SNF and then back up plan would be needed and reminded them of the [facility] referral already. SW called the following SNF's: [facility]- not contracted [facility]- not accepting new admits [facility]- not accepting new admits today but maybe soon, unsure if [employer] contracted [facility]- not contracted with pt's specific [employer] plan [facility]- no admissions person in today and unsure if they have openings or contracted with [employer] [facility]- DO have a [employer] contract, willing to review towards possibly starting auth in the morning if they accept pt. SW faxed clinicals to [facility] to review today and they are aware that pt will be stable likely for d/c tomorrow and the need to start auth candida in the morning if they are willing to accept patient. Plan: SW to call [facility] right away in the morning to determine if they are willing to accept pt and start insurance auth right away. Otherwise f/u on above SNF's and additional SNF's outside of [facility] will be needed vs back up plan of . HARSHAL Dupree
[2020-06-19] MEDS: polyethylene glycoL 3350 17 GM POWD.PACK PO (14:17)
[2020-06-19 16:00] VITALS: BP 132/66; PULSE 88; RESP 17; TEMP 36.3; O2SAT 96
[2020-06-19 19:45] VITALS: BP 138/87; PULSE 85; RESP 18; TEMP 36.9; O2SAT 96
[2020-06-19] MEDS: TRAZODONE 50 MG TABLET PO (21:28)
--- NOTE | 2020-06-19 21:30 | PC.NURSE ---
This RN thoroughly discussed benefits of ambulating and movement with patient, as well as nutritional needs; patient declines any ambulating, but was able to finish an Ensure; he reports declining appetite X 2 weeks, as well as increased sadness; LS diminished; pt repositioning independently in bed; voiding with urinal
[2020-06-19 23:00] VITALS: BP 145/83; PULSE 86; RESP 16; TEMP 36.9; O2SAT 95
[2020-06-20 05:00] VITALS: BP 138/90; PULSE 79; RESP 16; TEMP 36.2; O2SAT 96
[2020-06-20] MEDS: PANTOPRAZOLE 40 MG TABLET PO (05:04)
[2020-06-20 07:15] VITALS: BP 132/90; PULSE 88; RESP 16; TEMP 36.2; O2SAT 96
[2020-06-20] MEDS: ATORVASTATIN 20 MG TABLET 80 MG PO (08:26)
[2020-06-20] MEDS: FINASTERIDE 5 MG TABLET PO (08:26)
[2020-06-20] MEDS: DOCUSATE 100 MG CAPSULE PO (08:26)
[2020-06-20] MEDS: SERTRALINE 50 MG TABLET 100 MG PO (08:26)
[2020-06-20] MEDS: polyethylene glycoL 3350 17 GM POWD.PACK PO (08:26)
[2020-06-20] MEDS: ASPIRIN EC 325 MG TABLET PO (08:27)
[2020-06-20] MEDS: ENOXAPARIN 40 MG/0.4 ML SYRINGE SUBCUT (08:27)
[2020-06-20] MEDS: LIDOCAINE PATCH 1 EACH ADH..PATCH TOP (08:27)
[2020-06-20] MEDS: ACETAMINOPHEN 325 MG TABLET 650 MG PO (08:27)
[2020-06-20] MEDS: SODIUM CHLORIDE 0.9% FLUSH 10 ML IV (08:28)
--- NOTE | 2020-06-20 09:56 | PT.IPTN ---
Physical Therapy Treatment Note M2 PT-IP Current Condition Start: 06/18/20 10:19 Freq: NEEDED Status: Active Protocol: Document 06/18/20 10:29 DCW (Rec: 06/18/20 11:13 DCW [id number]) Physical Therapy Current Condition Current Condition Evaluation Date 06/18/20 Treatment Diagnosis Weakness Onset Date 06/18/20 Weight Bearing Status Weight Bearing Status Weight Bear as Tolerated M3 PT-IP Subjective Start: 06/18/20 10:19 Freq: NEEDED Status: Active Protocol: Document 06/20/20 09:32 CLB (Rec: 06/20/20 13:41 CLB [id number]) Subjective Physical Therapy Visit Type Type Treatment Note Visit Start Time 09:32 Visit Stop Time 09:56 Total Visit Minutes 24 Number of CAMPUS MANAGER Visits 2 Physical Therapy Visit Comments Patient Comments Pt willing to do therapy. Therapy Pain Assessment Pain When Pain Assessed During Weight Bearing Pain Present Pain Present Pain Reported Location R ankle Intensity 2 Scale Used Numeric (0 - 10) M4 PT-IP Mobility and Gait Start: 06/18/20 10:19 Freq: NEEDED Status: Active Protocol: Document 06/20/20 09:32 CLB (Rec: 06/20/20 13:41 CLB [id number]) PT-Bed Mobility Assessment Sit to Supine Sit to Supine Standby Assistance PT-Transfer Assessment Sit to and From Stand Sit to and from Stand Contact Guard Assistance,1 Person Assistance,Use of Upper Extremities Equipment Transfer Assistive Device Gait Belt,Front Wheeled Walker Comments Mobility Comments Pt on BSC BACK TENDER CYLINDER present, Pt required assist donning shoes then pt stood CGA w/FWW. Pt ambulated in [place] [facility] ~230ft with improved walker management. Pt has decreased stride length and foot clearance L>R. Pt then returned to room requiring CGA for stand-sit and SBA for sit-supine. Pt performed HS, QS and GS in supine. Left pt in bed with all needs within reach and BACK TENDER CYLINDER present to put on SCD's. Gait Assessment Gait Gait Assistance Required: Contact Guard Assist Distance (Feet) 230 Able to Maintain Weight Bearing Status Yes During Gait Assistive Devices Assistive Device Gait Belt,Front Wheeled Walker Orthotic/Prosthetic Devices or Brace: No Gait Deviations General Gait Pattern Antalgic,Decreased Stride Length,Decreased Feet Clearance,Flexed Trunk Factors Limiting Gait Function Factors Limiting Gait Function Decreased Activity Tolerance, Decreased Strength, Incoordination,Pain,Poor Safety Awareness Comments Gait Comments Pt required initial cues for staying inside walker and was able to show good follow through during gait. Pt improved with walker management. M5 PT-IP Objective Assessments Start: 06/18/20 10:19 Freq: NEEDED Status: Active Protocol: Document 06/18/20 10:29 DCW (Rec: 06/18/20 11:13 DCW [id number]) Orientation Orientation/Cognition Level of Alertness Alert Orientation Name,Month,Date,Year,Place, Situation Language Function Ability No Deficits Noted Safety Awareness Understands Safety Issues Memory Description No Deficits Noted Gross Range of Motion Lower Extremity ROM Assessment Bilaterally Impaired Impairments Limited knee extension secondary to weakness and pain , unable to straighten knees when requested while sitting EOB, however was then later able to stand fully supported bilaterally with good quad control. Strength Upper Extremity Strength Assessment Bilaterally Impaired Lower Extremity Strength Assessment Bilaterally Impaired Comments Strength Comments R>L secondary to prior CVA M6 PT-IP Treatment Start: 06/18/20 10:19 Freq: NEEDED Status: Active Protocol: Document 06/20/20 09:32 CLB (Rec: 06/20/20 13:41 CLB [id number]) Physical Therapy Treatment Exercises Exercises Ankle Pumps,Gluteal Sets,Quad Sets Education Education Provided Weight Bearing Status,Safety M7 PT-IP Assessment and Plan Start: 06/18/20 10:19 Freq: NEEDED Status: Active Protocol: Document 06/20/20 09:32 CLB (Rec: 06/20/20 13:41 CLB [id number]) PT Summary Assessment and Plan Potential Rehabilitation Potential Good Status of Condition at Evaluation Stable Summary Impairments Pain,ROM,Strength,Balance,Gait ,Activity Tolerance Assessment Summary Pt improved with walker management and increased gait distance. Pt reports less pain in L ankle today. Pt requires CGA for sit<>stand and gait for safety. Pt is unsafe to return home alone and would benefit from SNF rehab before returning to [facility] to improve strength and activity tolerance for independent mobility. Goals Bed Mobility Goal Independent Transfer Goal Independent Gait Goal Independent Gait Distance 100' /c least restrictive assistive device Days to Meet Goals 2 Frequency of Treatment Frequency Of Treatment Once a Day Treatment Plan Physical Therapy Treatment Plan Gait Training,Therapeutic Exercise,Balance Retraining, Neuromuscular Re-ed Recommendations To Nursing Amount of Assist Needed 1 Person Assist Discharge Recommendations PT Discharge Recommendations Home with / Assist,Home Health,SNF Rehab Equipment Needed for Home Before Possible FWW Discharge Transportation Needs at Discharge Private Vehicle
--- NOTE | 2020-06-20 10:30 | P.DS_ITS ---
History of Present Illness History of Present Illness Date Patient Seen: 06/20/20 Time Patient Seen: 10:30 Chief complaint: General Weakness Narrative: As per IKER Parrish, Mr. Dionicio Watts is a 74-year-old male with past medical history significant for prior CVA (residual left arm weakness), hyperlipidemia, depression, GERD who presents to the ER via EMS with chief complaint generalized weakness. The patient reports he has had progressive weakness over the last few days and summoned EMS because he could not get up off his couch and reports r ight ankle pain since this morning. Per medics upon arrival patient had a temperature of 101? on seen. The patient is a difficult historian. He denies falls or trauma or change in medications since he was discharged from the hospital after being admitted for acute on chronic back pain on 06/08/2020 and discharged the following day with Lidoderm patches. The patient states he has had could pain management with patches. He states he has had no fevers or chills, no headaches or dizziness, nasal congestion or sore throat. He reports no chest pain or palpitations and denies shortness of breath cough or wheezing. He has no complaints of epigastric or abdominal, nausea or vomiting. He adds that he eats 1 meal a day and has poor appetite. Since discharge the patient has been seen by his chiropractor and he states he is now back in line. She also prescribed ?calm? which the patient states has magnesium in it which gave him diarrhea and has since stopped. The patient normally ambulates around his care facility with a cane. Upon arrival to the ER the patient's temperature 100.4?, heart rate 91, blood pressure 135/68, respiratory rate of 21 saturating 95% on room air. A chest x-ray obtained which shows only probable scarring and ultrasound of the abdomen finds no gallstones, a partially contracted gallbladder and no common bile duct dilation, sonographic negative Bhakta sign. On laboratory analysis the patient has an elevated white count of 12.3 with elevated neutrophils at 10,800, hemoglobin of 12.6, hematocrit of 39.2 and platelets of 292. He has a sodium of 136 with a potassium of 2.9 and appears alkalotic with a CO 37 and has a BUN of 15 and a creatinine of 1.01. He has a total bilirubin 0.6, elevated AST of 128, elevated ALT at 1:26 a.m. and alkaline phosphatase of 95. His albumin is 3.6. His lactic acid of 1.2, procalcitonin 0.16, a respiratory panel that is completely negative and a negative COVID screening. He has a total CK of 35 and troponin is less than 0.012. On urinalysis he is positive for RBCs and protein but negative for leukocyte esterase, nitrates or WBCs with few bacteria. The patient is admitted to the hospitalist service for generalized weakness, hypokalemia and is unable to return to his assisted living facility safely. Discharge Providers Provider Date of admission: 06/18/20 04:37 Discharge Date: 06/20/20 Primary care physician: Cierra Mensah MD Consults: 06/18/20 05:10 Consult to Discharge Planning Routine Comment: Consult to Occupational Therapy Evaluate & Treat Comment: Generalized weakness Physician Instructions: Evaluate and treat Consult to Physical Therapy Evaluate & Treat Comment: Generalized weakness Physician Instructions: Evaluate and Treat 06/18/20 06:10 Consult to Dietitian, Adult Routine Comment: Reason For Exam: weight loss, 1 meal daily, poor appetite. Consult to Pastoral Services Routine Comment: patient request Discharge provider: Gunner Levi DO Summary Hospital Course Discharge Diagnosis: 1. Generalized weakness, acute on chronic 2. Acute hypokalemia, resolved 3. Fever of undetermined etiology, without evidence of infectious process, resolved 4. Right ankle pain 5. Chronic low back pain 6. Left hemiparesis secondary to history of CVA Hospital Course: This is a 74-year-old male with past medical history significant for prior CVA (residual left arm weakness), hyperlipidemia, depression, GERD who presents to the ER via EMS with chief complaint generalized weakness and is found to have a fever of 101 in the field with no identified source and hypokalemia. The patient described progressive weakness over the last few days and poor appetite since being discharged from the hospital 06/09/2020 after treated for acute severe lumbar spine pain. He reported waking this morning with a right ankle pain and he summoned EMS due to weakness and difficulty walking. There was no acute infiltrate on chest x-ray. Ultrasound of abdomen was obtained due to mild LFT elevation and did not reveal any concerning findings. Patient repo rted that since discharge his back pain had improved with use of Lidoderm patches and is noncontributory to his present weakness. X-rays of right ankle showed old fractures but no acute findings. In regards to low-grade fever, etiology was unclear and he has not had any further temperature spikes. COVID and respiratory PCR testing were normal. Blood cultures have been negative. Urinalysis microscopic was normal. Chest x- ray without infiltrate. His initial WBC was 12.3 and subsequently 10.5 without antibiosis. He has elevated inflammatory markers with ESR 56 and CRP 21 without determine etiology. His procalcitonin was normal at 0.16. He does not have history of prosthetic joints or other retained hardware. In regards to ankle pain, on exam and it appeared mildly swollen and a little warm but not obviously erythematous and not appearing as a ?hot? joint. As noted x-rays did not show acute findings. Ankle discomfort was relieved with Tylenol. He had PT evaluation whom recommended SNF upon discharge. Patient received potassium replacement for acute hypokalemia with subsequent normalization of serum potassium. Exam Vital Signs (past 8 hours): - 06/20/20 05:00 06/20/20 07:15 Temperature 97.2 F L 97.1 F L Pulse Rate 79 88 Respiratory Rate 16 16 Blood Pressure 138/90 132/90 Pulse Oximetry 96 96 Oxygen Delivery Method Room Air Oxygen Flow Rate 0 Narrative Exam Narrative: GENERAL APPEARANCE: well developed, adequately nourished, who is lying supine in bed alert and conversant in no acute distress HEENT: Atraumatic, the patient has a hair piece in place, no ptosis, PERRLA, sclera is anicteric, EOMs intact without nystagmus, no sinus tenderness to percussion, no rhinorrhea, mucous membranes are moist and pink without lesions or exudate. NECK/THYROID: neck supple, no JVD, no carotid bruit, no thyromegaly, trachea midline. LYMPH NODES: no cervical or supraclavicular lymphadenopathy. SKIN: [place], warm and dry, no visible lesions, rashes or cellulitic changes HEART: regular rate and rhythm, S1-S2, no murmur, no rubs or gallops, brisk capillary refill, trace right lower extremity edema LUNGS: clear to auscultation bilaterally, no coarseness crackles or wheezing, no cough present CHEST: Symmetrical movement, no accessory muscle use, good tidal volume. ABDOMEN: Soft, no distention, no abdominal tenderness, no guarding or peritoneal signs, no organomegaly, no flank or suprapubic tenderness, active bowel tones. BACK: Lumbar spine pain without palpable muscle spasms, Normal curvature, nontender to palpation, no CVA tenderness on percussion EXTREMITIES: Decreased range of motion left arm post CVA with spasticity and muscle wasting, mild swelling without warmth or erythema right ankle without evidence of effusion, pain on palpation anterior medial and lateral right ankle, spasticity left leg, back pain with elevation right leg, strength is 3-4/5. NEUROLOGIC: AAO x4, left-sided motor deficits, cranial nerves II-XII grossly intact, sensation intact to light touch, hearing grossly normal to speech. Objective Labs Result Diagrams: 06/19/20 04:50 06/19/20 04:50 [facility] Medical History CVA (cerebral vascular accident) (1992) Depression GERD (gastroesophageal reflux disease) Hyperlipidemia Low back pain RCA occlusion Renal cyst, right Seizures Surgical History History of skin surgery History of vasectomy Status post appendectomy Family History Father Heart attack Mother No problems noted. Brother No problems noted. Brother No problems noted. Sister No problems noted. Social History marital status: household members: none lives independently: Yes caregiver/support person: No Smoking Status: Former smoker second hand exposure: No alcohol intake: never substance use type: does not use Discharge Plan Discharge Plan Patient Disposition: SNF Transfer to: [facility] Provider Discharge Comment: This is a 74-year-old male with past medical history significant for prior CVA (residual left arm weakness), hyperlipidemia, depression, GERD who presents to the ER via EMS with chief complaint generalized weakness and is found to have a fever of 101 in the field with no identified source and hypokalemia. The patient described progressive weakness over the last few days and poor appetite since being discharged from the hospital 06/09/2020 after treated for acute severe lumbar spine pain. He reported waking this morning with a right ankle pain and he summoned EMS due to weakness and difficulty walking. There was no acute infiltrate on chest x-ray. Ultrasound of abdomen was obtained due to mild LFT elevation and did not reveal any concerning findings. Patient reported that since discharge his back pain had improved with use of Lidoderm patches and is noncontributory to his present weakness. X-rays of right ankle showed old fractures but no acute findings. In regards to low-grade fever, etiology was unclear and he has not had any further temperature spikes. COVID and respiratory PCR testing were normal. Blood cultures have been negative. Urinalysis microscopic was normal. Chest x- ray without infiltrate. His initial WBC was 12.3 and subsequently 10.5 without antibiosis. He has elevated inflammatory markers with ESR 56 and CRP 21 without determine etiology. His procalcitonin was normal at 0.16. He does not have history of prosthetic joints or other retained hardware. In regards to ankle pain, on exam and it appeared mildly swollen and a little warm but not obviously erythematous and not appearing as a ?hot? joint. As noted x-rays did not show acute findings. Ankle discomfort was relieved with Tylenol. He had PT evaluation whome recommended SNF upon discharge. Patient received potassium replacement for acute hypokalemia with subsequent normalization of serum potassium. I certify the postop hospital longterm care is medically necessary on a continuing basis for any conditions for which he/ she received care during this hospitalization.: Yes The receiving facility has agreed to accept transfer and provide medical treatment.: Yes Discharge orders & Medications Prescriptions: New acetaminophen 325 mg Tablet 650 mg PO Q6HR PRN (Reason: Fever/Mild Pain (1-3)) Qty: 30 RF: 0 Continued (DME) Disabled Parking Permit Qty: 1 RF: 0 atorvastatin 80 mg tablet 80 mg PO DAILY RF: 0 finasteride 5 mg tablet 5 mg PO DAILY RF: 0 aspirin 325 mg Tablet 325 mg PO DAILY RF: 0 lisinopril 40 mg Tablet 40 mg PO DAILY RF: 0 niacin [Slo-Niacin] 500 mg Tablet Extended Release 500 mg PO BEDTIME RF: 0 trazodone 50 mg Tablet 50 mg PO BEDTIME RF: 0 sertraline 100 mg tablet 100 mg PO DAILY RF: 0 esomeprazole magnesium [Nexium] 40 mg Capsule,Delayed Release(Dr/Ec) 40 mg PO DAILY RF: 0 Follow up/Referrals: Cierra Mensah MD [Primary Care Provider] - Discharge Health Status Multidrug resistant organism: No MDRO Precautions: [place] Diet/Activity/Treatments Diet: Diet as Tolerated Special Rehabilitation Services Reason for rehabilitation: Recovery r/t decondition Rehab type: Physical therapy and Occupational therapy Visit Report/Discharge Packet Instructions: DI for Failure to Thrive, DI for Muscle Weakness, Gxgkrpk-sv-Ceupzx-Adult Discharge Data Primary Care Provider: Cierra Mensah Attending Provider: Gunner Cruz VTE Deep Vein Thrombosis/Pulmonary Embolism Present on Admission: No
[2020-06-20 11:04] VITALS: BP 126/74; PULSE 81; RESP 14; TEMP 36; O2SAT 97
--- NOTE | 2020-06-20 12:17 | CM.DPC ---
DCP Cont: Patient is to be discharged to [facility] Awaiting orders, have placed on Dr. Levi's desk for signature. Kitty at [facility] in admissions stated that they can turkey picker patient at [phone]. Attempted to update patient, but he has been sleeping. COVID test will be ordered. Attempted to get in touch with daughter, Faiza, to give her update. Left her a message to call this shutdown planner back. Updated white board in main nurses station. P: Patient is to go to [facility] today. Orders were signed, and PASSR completed by HARSHAL Marc. Will fax over signed med sheets, PASSR, and discharge summary. COVID results are pending. Rosey Martinez RN/[employer] Dean
[2020-06-20 12:31] LABS: COVID19 -Nasal RAPID Negative (Negative)
--- NOTE | 2020-06-20 14:18 | OT.IP.TRT ---
Occupational Therapy Treatment Note M2 OT-IP Current Condition Start: 06/18/20 14:34 Freq: Status: Active Protocol: Document 06/19/20 12:34 RM (Rec: 06/19/20 12:55 RM [id number]) Occupational Therapy Current Condition Current Condition Evaluation Date 06/19/20 Treatment Diagnosis generalized weakness, hypokaelmia, R ankle pain Diagnosis Onset Date 06/18/20 Post Operative Precautions Other Precautions FALL RISK M3 OT- IP Subjective and Pain Start: 06/18/20 14:34 Freq: Status: Active Protocol: Document 06/20/20 16:00 [facility] (Rec: 06/20/20 16:10 [facility] [id number]) OT- Subjective Occupational Therapy Visit Type Type Treatment Note Visit Start Time 13:48 Visit Stop Time 14:18 Total Visit Minutes 30 Occupational Therapy Visit Comments Patient Comments Pt not wanting to get up at this time but open to during cognitive assessment. Patient/Caregiver Goals To get better to be able to take care of himself. OT Pain Assessment Pain When Pain Assessed At Rest Pain Present Pain Present Denied Pain M5 OT- IP IADL's Start: 06/18/20 14:34 Freq: Status: Active Protocol: Document 06/19/20 12:34 RM (Rec: 06/19/20 12:55 RM [id number]) OT-Instrumental Activities of Daily Living Deficits IADL Deficits Identified Deficits Home Safety Awareness Awareness of Need for Assistance at Home Decreased Awareness M6 OT- IP Functional Cognition Start: 06/18/20 14:34 Freq: Status: Active Protocol: Document 06/20/20 16:00 [facility] (Rec: 06/20/20 16:10 [facility] [id number]) Cognitive Factors Limiting Selfcare Function Cognitive Ability Level of Alertness Alert Patient Orientation Name,Month,Date,Year,Place, Situation Attention Span Ability Capable of Focused Attention, Capable of Sustained Attention Ability to Follow Commands Able to Follow One Step Commands Memory Description Short Term Impaired,Working Impaired Safety Awareness Underestimates Need for Assistance Problem Solving Ability Needs Assist to Identify Solutions Cognitive Tests SLUMS Pt scored 8/24 as not wanting to complete the cognitive assessment due to felt that it did not truly test his intelligence. Pt not able to subtract 100-23, only able to states 14 animals in one minute, pt not able to recall any of the 5 objects after time passed, pt not able to state 4 digit number backwards , able to answer 1/4 questions after time passed. Pt score implies cognitive deficits/ dementia. Cognitive Comments Cognitive Assessment Comments Pt able to answer all home safety questions with good accuracy. Pt states has to write things down often at home to remember things. Spoke to pt regarding goals to work on while at rehab and that they maybe also able to prodvide education and suggestions for energy conservation needs as pt heavily relies on his right arm for all needs due to his history of CVA and left arm is not functional. M9 OT- IP Assessment and Plan Start: 06/18/20 14:34 Freq: Status: Active Protocol: Document 06/20/20 16:00 [facility] (Rec: 06/20/20 16:10 [facility] [id number]) OT Summary Assessment and Plan Potential Rehabilitation Potential Good Analytic Complexity at Evaluation Moderate Summary OT Impairments Pain,Strength,Balance, Functional Cognition, Functional Mobility,Grooming, Dressing,Toileting,Bathing, Toilet Transfers,Shower Transfers,Activity Tolerance Progress Towards Goals Progressing Toward Goals Assessment Summary Pt to go to skilled rehab when medically stable. Frequency of Treatment Frequency Of Treatment Once a Day Treatment Plan OT Treatment Plan ADL Training,Functional Cognition Training,Functional Mobility,IADL Training, Therapeutic Exercises,Patient/ Family Education,Discharge Planning Discharge Recommendations OT Discharge Recommendations SNF Rehab Home Equipment Needs FWW, shower chair, grab bars
--- NOTE | 2020-06-20 14:56 | PC.NURSE ---
Day shift: Report given to SNF RN at approx 1500 by this film writer. All questions answered.
[2020-06-20 15:44] VITALS: BP 125/78; PULSE 98; RESP 16; TEMP 36.4; O2SAT 97
--- NOTE | 2020-07-07 20:35 | PC.NURSE ---
Late Entry; Potassium infusion initiated 06/18 at 06:33 complete at 10:34.
== END 2020-06-20 15:57 ==
LOC: ED 02:42 → AC 04:37
PROVIDERS: Internal Medicine; Admitting Provider Nurse Practitioner Adult Health; Emergency Provider Emergency Medicine; PCP Internal Medicine; Referring Provider Emergency Medicine; Visit Provider Nurse Practitioner Adult Health
DX: R53.1 Weakness (principal); R50.9 Fever, unspecified; E87.6 Hypokalemia; E87.3 Alkalosis; I69.354 Hemiplegia and hemiparesis following cerebral infarction affecting left non-dominant side; E78.5 Hyperlipidemia, unspecified; K21.9 Gastro-esophageal reflux disease without esophagitis; F32.9 Major depressive disorder, single episode, unspecified; M25.571 Pain in right ankle and joints of right foot; M54.5 Low back pain; Z20.828 Contact with and (suspected) exposure to other viral communicable diseases
CPT/HCPCS: 36415; 71045; 72149; 73600; 76705; 80048; 80053; 80329; 81001; 82550; 83605; 84145; 84484; 84550; 85025; 85651; 86140; 87040; 87633; 87635; 93005; 94760; 94762; 96365; 96366; 96372; 97110; 97116; 97161; 97166; 97530; 97535; 99284; G0378; G0480; J1650; J3480

== ENCOUNTER → 2021-04-14 14:05 | Outpatient (CLI) | payer OTHER, SELFPAY ==
[2020-06-18 04:38] VITALS: BMI 22.8
--- NOTE | 2021-04-14 | DI.US.S_ITS ---
PROCEDURE: US CAROTID DOPPLER BI INDICATIONS: hemiphlegia, unspecified affecting left nondominant TECHNIQUE: Color and pulse Doppler interrogation was performed of both carotid systems, with image documentation and velocity measurements. COMPARISON: [facility], , US CAROTID DOPPLER BI, 03/29/2020, 9:51. FINDINGS: Stenosis calculations are based on SRU (Society of Radiologists in Ultrasound) criteria. Right side: Brachial blood pressure: n/a Common carotid artery peak systolic velocity: 82 cm/sec. Internal carotid artery peak systolic velocity: occluded, unchanged. Internal carotid artery end diastolic velocity: occluded. External carotid artery peak systolic velocity: 73 cm/sec. ICA/CCA peak systolic ratio: n/a. Rojo scale imaging description: Occlusion Percent internal carotid artery stenosis: Occlusion. Vertebral artery: Flow direction is antegrade. Left side: Brachial blood pressure: n/a Common carotid artery peak systolic velocity: 108 cm/sec. Internal carotid artery peak systolic velocity: 94 cm/sec. Internal carotid artery end diastolic velocity: 43 cm/sec. External carotid artery peak systolic velocity: 57 cm/sec. ICA/CCA peak systolic ratio: 0.9 . Rojo scale imaging description: Mild plaque at the bifurcation Percent internal carotid artery stenosis: Less than 50%, unchanged. Vertebral artery: Flow direction is antegrade. IMPRESSION: 1. Unchanged occluded right internal carotid artery. 2. Unchanged less than 50% stenosis of the left internal carotid artery. Dictated by: Chely De Leon M.D. on 04/17/2021 at 12:36 Approved by: Chely De Leon M.D. on 04/17/2021 at 12:38
== END ==
PROVIDERS: PCP Family Medicine; Referring Provider Internal Medicine; Visit Provider Internal Medicine
DX: G81.94 Hemiplegia, unspecified affecting left nondominant side (principal); I65.23 Occlusion and stenosis of bilateral carotid arteries
CPT/HCPCS: 93880

== ENCOUNTER → 2022-01-25 15:06 | Outpatient (CLI) | payer OTHER, SELFPAY ==
[2020-06-18 04:38] VITALS: BMI 22.8
--- NOTE | 2022-01-25 | DI.US.S_ITS ---
PROCEDURE: US ABD AORTA ANEURYSM SCREEN INDICATIONS: Encounter for screening for cardiovascular disorders TECHNIQUE: Real time scanning was performed of the aorta and iliac arteries, with image documentation. COMPARISON: US, US ABDOMEN LIMITED, 06/18/2020, 4:06. [facility], CT, CT ABDOMEN PELVIS WO/W CON, 06/09/2020, 8:40. FINDINGS: Aorta: Proximal aortic diameter measures 2.3 cm. Mid-aorta measures 2.0 cm. Distal aortic diameter is 1.7 cm. Iliac arteries: Right common iliac artery measures 1.2 cm. Left common iliac artery measures 1.1 cm. IMPRESSION: No abdominal aortic or proximal common iliac artery aneurysm. Dictated by: Mane STRANGE Interpreted: Joao Paz MD on 01/25/2022 at 15:51 Transcribed by: SUE on 01/25/2022 at 15:52 Approved by: Joao Paz M.D. on 01/25/2022 at 16:38
== END ==
PROVIDERS: PCP Internal Medicine; Referring Provider Internal Medicine; Visit Provider Internal Medicine
DX: Z13.6 Encounter for screening for cardiovascular disorders (principal)
CPT/HCPCS: 76706

== ENCOUNTER → 2022-06-29 10:56 | Outpatient (CLI) | payer MEDICARE, SELFPAY ==
[2020-06-18 04:38] VITALS: BMI 22.8
--- NOTE | 2022-06-29 | DI.US.S_ITS ---
PROCEDURE: US CAROTID DOPPLER BI INDICATIONS: Occlusion and stenosis of bilateral carotid arteri TECHNIQUE: Color and pulse Doppler interrogation was performed of both carotid systems, with image documentation and velocity measurements. COMPARISON: [facility], , US CAROTID DOPPLER BI, 04/14/2021, 15:14. FINDINGS: Stenosis calculations are based on SRU (Society of Radiologists in Ultrasound) criteria. Right side: Brachial blood pressure: 125/83 mm Hg. Common carotid artery peak systolic velocity: Patent. Calcified plaque and intimal wall thickening. 59 cm/sec. Internal carotid artery peak systolic velocity: Occluded as before. Internal carotid artery end diastolic velocity: Occluded as before. External carotid artery peak systolic velocity: 86 cm/sec. ICA/CCA peak systolic ratio: Not applicable Rojo scale imaging description: Moderate calcified plaque. Percent internal carotid artery stenosis: Not applicable Vertebral artery: Flow direction is antegrade. Left side: Patient refused left brachial blood pressure. Common carotid artery peak systolic velocity: 92 cm/sec. Internal carotid artery peak systolic velocity: 109 cm/sec. Internal carotid artery end diastolic velocity: 42 cm/sec. External carotid artery peak systolic velocity: 76 cm/sec. ICA/CCA peak systolic ratio: 1.2 . Rojo scale imaging description: Moderate calcified plaque. Percent internal carotid artery stenosis: Less than 50% stenosis. Vertebral artery: Flow direction is antegrade. IMPRESSION: 1. Right ICA: Occluded as before. 2. Left ICA: Less than 50 % stenosis. 3. Antegrade flow in the bilateral vertebral arteries. Dictated by: Ellis Lobato M.D. on 06/29/2022 at 14:46 Approved by: Ellis Lobato M.D. on 06/29/2022 at 14:51
== END ==
PROVIDERS: PCP Internal Medicine; Referring Provider Internal Medicine; Visit Provider Internal Medicine
DX: I65.23 Occlusion and stenosis of bilateral carotid arteries (principal)
CPT/HCPCS: 93880

== ENCOUNTER → 2024-02-21 12:47 | Outpatient (CLI) | payer MEDICARE, SELFPAY ==
[2020-06-18 04:38] VITALS: BMI 22.8
--- NOTE | 2024-02-21 12:49 | DI.US.S_ITS ---
PROCEDURE: US CAROTID DOPPLER BI INDICATIONS: BILATERAL CAROTID STENOSIS TECHNIQUE: Color and pulse Doppler interrogation was performed of both carotid systems, with image documentation and velocity measurements. COMPARISON: [facility], [place], US CAROTID DOPPLER BI, 06/29/2022, 11:08. FINDINGS: Stenosis calculations are based on SRU (Society of Radiologists in Ultrasound) criteria. Right side: Brachial blood pressure: 125/75 mm Hg. Common carotid artery peak systolic velocity: 56 cm/sec. Internal carotid artery peak systolic velocity: Occluded Internal carotid artery end diastolic velocity: Occluded External carotid artery peak systolic velocity: 94 cm/sec. ICA/CCA peak systolic ratio: Not applicable . Rojo scale imaging description: Occlusion of the ICA. Percent internal carotid artery stenosis: Occlusion of the ICA . Vertebral artery: Flow direction is antegrade. Left side: Brachial blood pressure: 124/99 mm Hg. Common carotid artery peak systolic velocity: 82 cm/sec. Internal carotid artery peak systolic velocity: 99 cm/sec. Internal carotid artery end diastolic velocity: 44 cm/sec. External carotid artery peak systolic velocity: 111 cm/sec. ICA/CCA peak systolic ratio: 1.2 . Rojo scale imaging description: Moderate atherosclerotic plaques Percent internal carotid artery stenosis: Less than 50% stenosis . Vertebral artery: Flow direction is antegrade. IMPRESSION: 1. Redemonstration of occlusion of the right internal carotid artery. 2. Moderate atherosclerotic plaques of the left carotid bulb with less than 50% stenosis of the left ICA. Dictated by: Pancho Barnard M.D. on 02/21/2024 at 14:52 Approved by: Pancho Barnard M.D. on 02/21/2024 at 14:55
== END ==
PROVIDERS: PCP Internal Medicine; Referring Provider Internal Medicine; Visit Provider Internal Medicine
DX: I65.23 Occlusion and stenosis of bilateral carotid arteries (principal)
CPT/HCPCS: 93880